=== PATIENT | female | born 1955 | race Caucasian/White ===

== ENCOUNTER 2017-02-06 18:01 | Inpatient (IN) | payer MEDICAID ==
[2017-02-06 18:44] LABS: BASOPHILS # (AUTO) 0.1 10^3/uL (0.0-0.1); BASOPHILS % (AUTO) 0.7 %; EOSINOPHILS # (AUTO) 0.1 10^3/uL (0.0-0.7); EOSINOPHILS % (AUTO) 1.2 %; HGB - HEMOGLOBIN 15.7 g/dL (12.0-16.0); LYMPHOCYTES # (AUTO) 2.6 10^3/uL (1.5-3.5); LYMPHOCYTES % (AUTO) 26.3 %; MEAN CORPUSCULAR HEMOGLOBIN 32.9 pg (27.0-31.0); MEAN CORPUSCULAR HGB CONC 34.3 g/dL (32.0-36.0); MEAN CORPUSCULAR VOLUME 95.7 fL (81.0-99.0); MEAN PLATELET VOLUME 7.2 fL (7.9-10.8); MONOCYTES # (AUTO) 1.2 10^3/uL (0.0-1.0); MONOCYTES % (AUTO) 11.8 %; NEUTROPHILS # (AUTO) 5.9 10^3/uL (1.5-6.6); PLT - PLATELET COUNT 276 10^3/uL (130-450); RED BLOOD COUNT 4.78 10^6/uL (4.20-5.40); RED CELL DISTRIBUTION WIDTH 13.2 % (12.0-15.0); WHITE BLOOD COUNT 9.9 x10^3/uL (4.8-10.8)
[2017-02-06] MEDS ORDERED: SODIUM CHLORIDE 0.9% 1,000 ML IV ONE ×2 (18:55)
[2017-02-06] MEDS ORDERED: PANTOPRAZOLE 40 MG VIAL IVP STA (18:55)
[2017-02-06 18:57] LABS: ALBUMIN 4.8 g/dL (3.2-5.5); ALBUMIN/GLOBULIN RATIO 1.2 (1.0-2.2); BILIRUBIN,TOTAL 0.8 mg/dL (0.2-1.0); CALCIUM 10.3 mg/dL (8.5-10.3); CREATININE 0.7 mg/dL (0.4-1.0); TOTAL PROTEIN 8.7 g/dL (6.7-8.2)
--- NOTE | 2017-02-06 18:59 | ED Physician Documentation ---
PD HPI ABD PAIN - Stated complaint Stated Complaint: ABD PAIN,BACK PAIN - Chief complaint Chief Complaint: Abd Pain - History obtained from History obtained from: Patient, Family - History of Present Illness Timing - onset: Today Timing - duration: Days (1) Timing - details: Gradual onset Pain level max: 8 Pain level now: 8 Quality: Aching, Pain Location: Epigastric Radiation: Other (mid back) Improved by: Eating, Vomiting Associated symptoms: Nausea. No: Fever, Vomiting, Hematemesis, Diarrhea, Constipation, Melena, Hematochezia, Dysuria Similar symptoms before: Diagnosis (pancreatitis) Recently seen: Not recently seen - Additional information Additional information: states drinks 1 bottle of white wine daily. Has had pancreatitis several times in the past. Review of Systems Ten Systems: 10 systems reviewed and negative Constitutional: denies: Fever, Chills Ears: denies: Ear pain Nose: denies: Rhinorrhea / runny nose, Congestion Throat: denies: Sore throat Respiratory: denies: Cough : denies: Dysuria Skin: denies: Rash Musculoskeletal: denies: Neck pain, Back pain Neurologic: denies: Headache PD PAST MEDICAL HISTORY - Past Medical History Past Medical History: Yes Cardiovascular: None Respiratory: Asthma, COPD Endocrine/Autoimmune: None GI: Pancreatitis : None HEENT: Glaucoma Psych: None Musculoskeletal: Gout Derm: None - Past Surgical History Past Surgical History: Yes Ortho: Arthroscopic surgery, Other HEENT: Tonsil/Adenoidectomy - Present Medications Home Medications: Ambulatory Orders Medication Instructions Recorded Confirmed Estrogens, Conjugated Cream 1 applic TOP QPM 10/14/15 10/14/15 [Premarin Cream] Citalopram [CeleXA] 20 mg PO DAILY #30 tablet 10/15/15 Lisinopril [Zestril] 5 mg PO DAILY #30 tablet 10/15/15 Lorazepam [Ativan] 1 mg PO Q6HR PRN #25 tablet 10/15/15 Metoprolol Tartrate [Lopressor] 50 mg PO BID #60 tablet 10/15/15 Multivitamin/Iron/Folic Acid [Hm 1 each PO DAILY #30 tablet 10/15/15 Complete Women Tablet] Ondansetron Odt [Zofran Odt] 4 mg PO Q6H PRN #15 tablet 10/15/15 Pantoprazole [Protonix] 40 mg PO DAILY #30 tablet 10/15/15 - Allergies Allergies/Adverse Reactions: Allergies Allergy/AdvReac Type Severity Reaction Status Date / Time morphine AdvReac Hallucinati Verified 02/06/17 19:28 ons - Social History Does the pt smoke?: No Smoking Status: Never smoker Does the pt drink ETOH?: Yes ETOH Use: Wine Does the pt have substance abuse?: No - Immunizations Immunizations are current?: Yes PD ED PE NORMAL - Vitals Vital signs reviewed: Yes - General General: Alert and oriented X 3, No acute distress, Well developed/nourished - HEENT HEENT: Moist mucous membranes, Pharynx benign - Neck Neck: Supple, no meningeal sign - Cardiac Cardiac: RRR, Strong equal pulses - Respiratory Respiratory: No respiratory distress, Clear bilaterally - Abdomen Abdomen: Soft, Non distended, Other (Tender to palpation epigastric without peritoneal signs) - Derm Derm: Warm and dry - Extremities Extremities: No edema - Neuro Neuro: Alert and oriented X 3 - Psych Psych: Normal mood, Normal affect Results - Vitals Vitals: Vital Signs - 24 hr 02/06/17 18:04 Temperature 36.6 C Heart Rate 106 H Respiratory 18 Rate Blood Pressure 207/101 H O2 Saturation 98 Oxygen O2 Source Room air - Labs Labs: Laboratory Tests 02/06/17 02/06/17 02/06/17 18:37 18:37 18:37 WBC 9.9 RBC 4.78 Hgb 15.7 Hct 45.7 MCV 95.7 MCH 32.9 H MCHC 34.3 RDW 13.2 Plt Count 276 MPV 7.2 L Neut # 5.9 Lymph # 2.6 [place] # 1.2 H Eos # 0.1 Baso # 0.1 Absolute Nucleated RBC 0.00 Nucleated RBC % 0.0 Sodium 134 L Potassium 3.8 Chloride 96 L Carbon Dioxide 24 Anion Gap 14.0 H BUN 12 Creatinine 0.7 Estimated GFR (MDRD) 85 L Glucose 109 H Calcium 10.3 Total Bilirubin 0.8 AST 63 H ALT 44 Alkaline Phosphatase 123 H Total Protein 8.7 H Albumin 4.8 Globulin 3.9 Albumin/Globulin Ratio 1.2 Lipase 102 H Ethyl Alcohol < 5.0 PD MEDICAL DECISION MAKING - ED course Complexity details: reviewed old records, reviewed results, re-evaluated patient , considered differential, d/w patient, d/w family, d/w [employer] operations consultant ED course: Patient is an alcoholic 61-year-old female presents to the emergency department with recurrent pancreatitis. Pain well controlled. Kept n.p.o. and given IV fluids. Discussed the case with the hospitalist Dr. Wade who accepts. This document was made in part using voice recognition software. While efforts are made to proofread this document, sound alike and grammatical errors may occur. Departure - Departure Disposition: [facility] DC/Xfer Clinical Impression: Pancreatitis Qualifiers: Chronicity: acute Pancreatitis type: alcohol induced Acute pancreatitis complication: no infection or necrosis Qualified Code(s): K85.20 - Alcohol induced acute pancreatitis without necrosis or infection Condition: Stable Discharge Date/Time: 02/06/17 20:29
[2017-02-06] MEDS ORDERED: MORPHINE 2 MG/ML SYRINGE IVP STA (19:13)
[2017-02-06] MEDS ORDERED: ONDANSETRON 4 MG/2 ML VIAL IVP STA (19:13)
[2017-02-06] MEDS ORDERED: HYDROmorphone 1 MG/ML SYRINGE IVP STA (19:26)
[2017-02-06] MEDS ORDERED: MORPHINE 2 MG/ML SYRINGE IVP PRN (19:43)
[2017-02-06] MEDS ORDERED: TEMAZEPAM 15 MG CAPSULE PO PRN (19:43)
[2017-02-06] MEDS ORDERED: SODIUM CHLORIDE FLUSH 0.9% 10 ML SYRINGE IVP PRN (19:43)
[2017-02-06 20:10] LABS: BILIRUBIN,URINE NEGATIVE (NEGATIVE); GLUCOSE, URINE (UA) NEGATIVE (NEGATIVE); KETONES,URINE (UA) TRACE mg/dL (NEGATIVE); LEUKOCYTE ESTERASE, URINE TRACE (NEGATIVE); NITRITE,URINE NEGATIVE (NEGATIVE); OCCULT BLOOD,URINE NEGATIVE (NEGATIVE); PH,URINE 6.5 PH (5.0-7.5); PROTEIN,URINE NEGATIVE (NEGATIVE); UROBILINOGEN,URINE 0.2 (NORMAL) E.U./dL (NORMAL)
[2017-02-06 20:12] LABS: CLARITY,URINE CLEAR (CLEAR)
[2017-02-06 20:18] LABS: BACTERIA,URINE Few /HPF (None Seen); RBC,URINE 0-5 /HPF (0-5); SQUAMOUS EPITHELIAL CELL,UR FEW Squamous (<= Few)
--- NOTE | 2017-02-06 20:30 | HISTORY & PHYSICAL EXAMINATION ---
Chief Complaint - Chief Complaint Chief Complaint: Abdominal pain History of Present Illness - Admitted From Admitted From:: Home - History of Present Illness HPI Comment/Other: Ms. Luigi Dahl is a very pleasant 61-year-old female with a long history of alcohol use/abuse and 2 prior episodes of pancreatitis secondary to alcohol abuse.She knows that she is not supposed to drink but has been drinking daily for over 2 weeks. She knows that she is not supposed to drink but has been drinking wine daily for over 2 weeks.This morning she awoke with abdominal pain which has continued to worsen.She denies any nausea or vomiting. History - Past Medical History Cardiovascular: reports: None Respiratory: reports: Asthma, COPD Endocrine/Autoimmune: reports: None GI: reports: Pancreatitis LEGAL TRANSCRIPTIONIST: reports: None : reports: None HEENT: reports: Glaucoma Psych: reports: None Musculoskeletal: reports: Gout Derm: reports: None MRSA Hx?: No - Past Surgical History Ortho: reports: Arthroscopic surgery, Other HEENT: reports: Tonsil/Adenoidectomy - Family & Social History Family History: Mother: , Cancer, Father: , CAD, Other family: Diabetes, Type 2, Hyperlipidemia, Hypertension Living arrangement: At home Living Situation: With spouse/s.o. - Substance History Use Issues: Other (Pancreatitis) Abuse: Recurrent use of substance despite neg consequences: Alcohol Dependence: Experiences withdrawal or developed tolerances: Alcohol - POLST Patient has POLST: No Meds/Allgy - Home Medications Home Medications: Ambulatory Orders Medication Instructions Recorded Confirmed Estrogens, Conjugated Cream 1 applic TOP QPM 10/14/15 10/14/15 [Premarin Cream] Citalopram [CeleXA] 20 mg PO DAILY #30 tablet 10/15/15 Lisinopril [Zestril] 5 mg PO DAILY #30 tablet 10/15/15 Lorazepam [Ativan] 1 mg PO Q6HR PRN #25 tablet 10/15/15 Metoprolol Tartrate [Lopressor] 50 mg PO BID #60 tablet 10/15/15 Multivitamin/Iron/Folic Acid [Hm 1 each PO DAILY #30 tablet 10/15/15 Complete Women Tablet] Ondansetron Odt [Zofran Odt] 4 mg PO Q6H PRN #15 tablet 10/15/15 Pantoprazole [Protonix] 40 mg PO DAILY #30 tablet 10/15/15 - Allergies Allergies/Adverse Reactions: Allergies Allergy/AdvReac Type Severity Reaction Status Date / Time morphine AdvReac Hallucinati Verified 02/06/17 19:28 ons Review of Systems - Constitutional Constitutional: reports: Poor appetite, Diaphoresis, Weight loss. denies: Night sweats - Eyes Eyes: denies: Pain, Irritation, Blurred vision, Dipolpia - Ears, Nose & Throat Ears, Nose & Throat: denies: Ear pain, Hearing loss, Hearing aids, Tinnitus, Vertigo, Nosebleeds, Nasal obstruction, Nasal congestion, Dentures, Mouth lesions, Bleeding gums, Dental pain - Cardiovascular Cariovascular: denies: Palpitations, Chest pain, Edema, Syncope - Respiratory Respiratory: denies: Cough, Sputum production, Wheezing, Snoring - Gastrointestinal Gastrointestinal: reports: Abdominal pain, Diarrhea. denies: Abdominal distention, Constipation, Rectal bleeding, Rene blood emesis - Genitourinary Genitourinary: denies: Dysuria, Frequency, Urgency - Musculoskeletal Musculoskeletal: denies: Muscle pain, Back pain, Muscle aches, Joint pain - Integumentary Integumentary: denies: Rash, Pruritis, Lesions - Neurological Neurological: denies: General weakness, Focal weakness, Headache, Dizziness - Psychiatric Psychiatric: reports: Depression, Anxiety. denies: Suicidal, Delusions, Hallucinations - Endocrine Endocrine: denies: Polyuria, Polydypsia, Polyphagia - Hematologic/Lymphatic Hematologic/Lymphatic: denies: Anemia, Bruising, Petechiae, Lymphadenopathy - All Other Systems All Other Systems: reports: Reviewed and negative Exam - Vital Signs Reviewed Vital Signs: Yes Vital Signs: Vital Signs x48h Temp Pulse Resp BP Pulse Ox 02/06/17 20:25 36.5 C 107 H 20 143/78 H 97 - Physical Exam General Appearance: positive: Alert, Mild distress, Anxious Eyes Bilateral: positive: Normal inspection, PERRL, EOMI, No lid inflammation, No scleral icterus ENT: positive: ENT inspection nml, Pharynx nml, No signs of dehydration. negative: Purulent nasal drainage, Pharyngeal erythema, Oral lesions Neck: positive: Nml inspection, Thyroid nml, No JVD, Trachea midline. negative : Thyromegaly Respiratory: positive: Chest non-tender, No respiratory distress, Breath sounds nml. negative: Wheezes, Rales, Rhonchi Cardiovascular: positive: Regular rate & rhythm, No murmur, No gallop. negative : Systolic murmur, Diastolic murmur Peripheral Pulses: positive: 1+ Abdomen: positive: No organomegaly, Nml bowel sounds, No distention, Tenderness. negative: Guarding, Rebound Back: positive: Nml inspection. negative: CVA tenderness (R), CVA tenderness (L ) Skin: positive: Color nml, No rash, Warm, Dry. negative: Cyanosis Extremities: positive: Non-tender, Full ROM, Nml appearance, No pedal edema Neurologic/Psychiatric: positive: Oriented x3, CN's nml (2-12), Motor nml, Sensation nml, Mood/affect nml Conclusion/Plan - Problem List (1) Pancreatitis Conclusion/Plan: We will make the patient n.p.o. at this time and will check her electrolytes in the morning. We will start her on IV D5 one half normal saline with 20 mEq of potassium and correct any electrolyte abnormalities as they arise. We will give her pain medicine as needed. Once her pain is under control we will start her on a soft diet. Qualifiers: Chronicity: acute Pancreatitis type: alcohol induced Acute pancreatitis complication: no infection or necrosis Qualified Code(s): K85.20 - Alcohol induced acute pancreatitis without necrosis or infection (2) Alcohol abuse Conclusion/Plan: We will ask social media content specialist to consult with the patient regarding alcohol cessation and any programs that may be available for her. - Lab Results Fish Bones: 02/06/17 18:37 02/06/17 18:37 Issues/Core Measures - Anticipated LOS Anticipated Stay Length: 2 or more midnights - [facility] Requirement for [facility] I expect patient to be DC'd or transferred within 96 hours.: Yes - DVT/VTE - Prophylaxis VTE/DVT Device ordered at admit?: Yes
[2017-02-06] MEDS ORDERED: HYDROmorphone 1 MG/ML SYRINGE IVP SCH (20:48)
[2017-02-06] MEDS: SODIUM CHLORIDE FLUSH 0.9% 10 ML SYRINGE IVP SCH (21:09)
[2017-02-06] MEDS: METOPROLOL TARTRATE 50 MG TABLET PO SCH (21:10)
[2017-02-06] MEDS: LORazepam 0.5 MG TABLET PO PRN (21:11)
[2017-02-06] MEDS: PROCHLORPERAZINE 10 MG/2 ML VIAL IVP PRN (21:12)
[2017-02-06] MEDS: FAMOTIDINE 20 MG/50 ML 50 ML IV SCH (21:17)
[2017-02-06] MEDS: D5.45NS W/20 MEQ KCL 1,000 ML IV SCH (21:52)
[2017-02-07] MEDS ORDERED: HYDROmorphone 1 MG/ML SYRINGE IVP STA (02:53)
[2017-02-07] MEDS: SODIUM CHLORIDE FLUSH 0.9% 10 ML SYRINGE IVP SCH ×3 (06:37→21:23)
[2017-02-07] MEDS: D5.45NS W/20 MEQ KCL 1,000 ML IV SCH ×2 (08:05→18:51)
[2017-02-07] MEDS: ACETAMINOPHEN 1,000 MG/100 ML 100 ML IV PRN (08:16)
[2017-02-07] MEDS: POLYETHYLENE GLYCOL 3350 17 GM PACKET PO SCH (08:45)
[2017-02-07] MEDS: METOPROLOL TARTRATE 50 MG TABLET PO SCH (08:46)
[2017-02-07] MEDS: FAMOTIDINE 20 MG/50 ML 50 ML IV SCH ×2 (08:52→21:22)
[2017-02-07] MEDS ORDERED: CITALOPRAM 10 MG TABLET PO SCH (09:00)
[2017-02-07] MEDS ORDERED: LISINOPRIL 5 MG TABLET PO SCH (09:00)
[2017-02-07] MEDS: HYDROmorphone 1 MG/ML SYRINGE IVP PRN ×2 (10:46→18:51)
[2017-02-07] MEDS: LORazepam 0.5 MG TABLET PO PRN (10:49)
[2017-02-07 11:07] LABS: ALBUMIN 3.6 g/dL (3.2-5.5); BILIRUBIN,DIRECT 0.1 mg/dL (0.1-0.5); BILIRUBIN,TOTAL 0.9 mg/dL (0.2-1.0); MAGNESIUM 1.8 mg/dL (1.7-2.8); TOTAL PROTEIN 6.5 g/dL (6.7-8.2)
[2017-02-07] MEDS ORDERED: IOPAMIDOL-300 50 ML VIAL ONE (11:24)
[2017-02-07] MEDS ORDERED: IOPAMIDOL-300 100 ML VIAL ONE (11:24)
[2017-02-07] MEDS: PROCHLORPERAZINE 10 MG/2 ML VIAL IVP PRN ×2 (11:30→22:49)
[2017-02-07] MEDS ORDERED: IOPAMIDOL-300 50 ML VIAL PO ONE (13:58)
[2017-02-07] MEDS ORDERED: IOPAMIDOL-300 100 ML VIAL IVP ONE (13:58)
--- NOTE | 2017-02-07 15:41 | PROVIDER PROGRESS NOTE ---
Assessment/Plan - Problem List (1) Pancreatitis Qualifiers: Chronicity: acute Pancreatitis type: alcohol induced Acute pancreatitis complication: no infection or necrosis Qualified Code(s): K85.20 - Alcohol induced acute pancreatitis without necrosis or infection Assessment/Plan: Continue bowel rest, iv hydration and pain management. iv meds for gastric ulcer prophylaxis. Abdomen/pelvis CT ordered to evaluate pancreas and abdomen. Following amylase and lipase, electrolytes and anion gap. (2) Alcohol abuse Assessment/Plan: Lorazepam ordered prn signs of withdrawl. - Current Meds Current Meds: Current Medications Generic Name Dose Route Start Last Admin Trade Name Freq PRN Reason Stop Dose Admin Hydromorphone HCl 1 mg 02/07/17 10:30 02/07/17 10:46 Dilaudid Inj Syringe IVP 1 mg Q4H PRN Administration PAIN Potassium Chloride/Dextrose/Sod Cl 1,000 mls @ 100 mls/hr 02/06/17 20:00 08:05 D5.45ns W/20 Meq Kcl IV 100 mls/hr .Q10H SANJU Administration Famotidine 50 mls @ 100 mls/hr 02/06/17 21:00 02/07/17 10:09 Pepcid 20 Mg/50 Ml IV Infused BID SANJU Infusion Acetaminophen 100 mls @ 400 mls/hr 02/07/17 08:17 02/07/17 10:16 Ofirmev IV Infused Q6HR PRN Infusion PAIN Lorazepam 0.5 - 1 mg 02/06/17 19:52 02/07/17 10:49 Ativan PO 1 mg Q6H PRN Administration Alcohol Withdrawal Polyethylene Glycol 17 gm 02/07/17 09:00 02/07/17 08:45 Miralax PO Not Given DAILY SANJU Prochlorperazine Edisylate 10 mg 02/06/17 19:43 02/07/17 11:30 Compazine Inj IVP 10 mg Q6HR PRN Administration Nausea / Vomiting Sodium Chloride 10 ml 02/06/17 19:43 02/07/17 03:38 Normal Saline Flush 0.9% IVP 10 ml PRN PRN Administration NEEDED PER PROVIDER ORDERS Sodium Chloride 10 ml 02/06/17 22:00 02/07/17 13:38 Normal Saline Flush 0.9% IVP Not Given Q8HR SANJU - Lab Result Fish Bone Diagrams: 02/06/17 18:37 02/07/17 10:37 - Additional Planning My Orders: My Active Orders 02/07/17 08:17 Acetaminophen 1,000 mg/100 ml [Ofirmev] 100 ml IV Q6HR 02/07/17 10:30 HYDROmorphone INJ SYRINGE [Dilaudid Inj Syringe] 1 mg IVP Q4H PRN 02/07/17 13:25 Abdomen/Pelvis W/ [CT] Routine 02/08/17 05:00 AMYLASE [CHEM] DAILYLAB BMP - BASIC METABOLIC PANEL [CHEM] DAILYLAB CBC - COMP BLD CT W/AUTO DIFF [HEME] DAILYLAB LIPASE [CHEM] DAILYLAB LIVER PANEL [CHEM] DAILYLAB MAGNESIUM [CHEM] DAILYLAB Subjective - Subjective Patient Reports: Other (Nauseated Still havuing abdominal pain and needing pain meds) Objective Vital Signs: Vital Signs - 24 hr 02/06/17 02/06/17 02/06/17 20:25 20:36 21:10 Temperature 36.5 C 36.6 C Heart Rate 107 H Heart Rate [ 102 H Brachial] Respiratory 20 16 Rate Blood Pressure 143/78 H 187/86 H Blood Pressure 183/82 H [Right Brachial artery] O2 Saturation 97 97 02/07/17 02/07/17 02/07/17 00:21 07:32 08:46 Temperature 36.9 C 36.5 C Heart Rate Heart Rate [ 76 74 Brachial] Respiratory 16 16 Rate Blood Pressure 127/76 Blood Pressure 156/89 H 127/76 [Right Brachial artery] O2 Saturation 96 96 Oxygen O2 Source Room air I&O (Last 24 Hrs): Intake and Output Totals x24h 02/05/17 02/06/17 02/07/17 23:59 23:59 23:59 Intake Total 1487.5 1160 Balance 1487.5 1160 General: Moderate distress HEENT: Other (Dry mucosa) Neck: Supple Cardiovascular: Regular rate, No murmurs Respiratory: No respiratory distress Abdomen: Normal bowel sounds, Soft, Other (Guarding without rebound) Extremities: No edema - Results Results: Laboratory Results WBC 9.9 x10^3/uL (4.8-10.8) 02/06/17 18:37 RBC 4.78 10^6/uL (4.20-5.40) 02/06/17 18:37 Hgb 15.7 g/dL (12.0-16.0) 02/06/17 18:37 Hct 45.7 % (37.0-47.0) 02/06/17 18:37 MCV 95.7 fL (81.0-99.0) 02/06/17 18:37 MCH 32.9 pg (27.0-31.0) H 02/06/17 18:37 MCHC 34.3 g/dL (32.0-36.0) 02/06/17 18:37 RDW 13.2 % (12.0-15.0) 02/06/17 18:37 Plt Count 276 10^3/uL (130-450) 02/06/17 18:37 MPV 7.2 fL (7.9-10.8) L 02/06/17 18:37 Neut # 5.9 10^3/uL (1.5-6.6) 02/06/17 18:37 Lymph # 2.6 10^3/uL (1.5-3.5) 02/06/17 18:37 [place] # 1.2 10^3/uL (0.0-1.0) H 02/06/17 18:37 Eos # 0.1 10^3/uL (0.0-0.7) 02/06/17 18:37 Baso # 0.1 10^3/uL (0.0-0.1) 02/06/17 18:37 Absolute Nucleated RBC 0.00 x10^3/uL 02/06/17 18:37 Nucleated RBC % 0.0 /100WBC 02/06/17 18:37 Sodium 134 mmol/L (135-145) L 02/06/17 18:37 Potassium 3.8 mmol/L (3.5-5.0) 02/07/17 10:37 Chloride 96 mmol/L (101-111) L 02/06/17 18:37 Carbon Dioxide 24 mmol/L (21-32) 02/06/17 18:37 Anion Gap 14.0 (6-13) H 02/06/17 18:37 BUN 12 mg/dL (6-20) 02/06/17 18:37 Creatinine 0.7 mg/dL (0.4-1.0) 02/06/17 18:37 Estimated GFR (MDRD) 85 (>89) L 02/06/17 18:37 Glucose 109 mg/dL (70-100) H 02/06/17 18:37 Calcium 10.3 mg/dL (8.5-10.3) 02/06/17 18:37 Magnesium 1.8 mg/dL (1.7-2.8) 02/07/17 10:37 Total Bilirubin 0.9 mg/dL (0.2-1.0) 02/07/17 10:37 Direct Bilirubin 0.1 mg/dL (0.1-0.5) 02/07/17 10:37 AST 40 IU/L (10-42) 02/07/17 10:37 ALT 33 IU/L (10-60) 02/07/17 10:37 Alkaline Phosphatase 102 IU/L (42-121) 02/07/17 10:37 Total Protein 6.5 g/dL (6.7-8.2) L 02/07/17 10:37 Albumin 3.6 g/dL (3.2-5.5) 02/07/17 10:37 Globulin 2.9 g/dL (2.1-4.2) 02/07/17 10:37 Albumin/Globulin Ratio 1.2 (1.0-2.2) 02/06/17 18:37 Amylase 74 U/L (28-100) 02/07/17 10:37 Lipase 210 U/L (22-51) H 02/07/17 10:37 Urine Color YELLOW 02/06/17 19:50 Urine Clarity CLEAR (CLEAR) 02/06/17 19:50 Urine pH 6.5 PH (5.0-7.5) 02/06/17 19:50 Ur Specific [place] 1.020 (1.002-1.030) 02/06/17 19:50 Urine Protein NEGATIVE mg/dL (NEGATIVE) 02/06/17 19:50 Urine Glucose (UA) NEGATIVE mg/dL (NEGATIVE) 02/06/17 19:50 Urine Ketones TRACE mg/dL (NEGATIVE) 02/06/17 19:50 Urine Occult Blood NEGATIVE (NEGATIVE) 02/06/17 19:50 Urine Nitrite NEGATIVE (NEGATIVE) 02/06/17 19:50 Urine Bilirubin NEGATIVE (NEGATIVE) 02/06/17 19:50 Urine Urobilinogen 0.2 (NORMAL) E.U./dL (NORMAL) 02/06/17 19:50 Ur Leukocyte Esterase TRACE (NEGATIVE) H 02/06/17 19:50 Urine RBC 0-5 /HPF (0-5) 02/06/17 19:50 Urine WBC 6-10 /HPF (0-5) H 02/06/17 19:50 Ur Squamous Epith Cells FEW Squamous (<= Few) 02/06/17 19:50 Urine Bacteria Few /HPF (None Seen) 02/06/17 19:50 Ur Microscopic Review INDICATED 02/06/17 19:50 Urine Culture Comments INDICATED 02/06/17 19:50 Ethyl Alcohol < 5.0 mg/dL 02/06/17 18:37 - Procedures Procedures: Procedures INTRODUCE REGIONAL ANESTH IN PERIPH NRV, PLEXI, PERC (01/19/15) REPOSITION RIGHT ULNA WITH INT FIX, OPEN APPROACH (01/19/15) VENOUS CATHETERIZATION NEC (10/21/14)
--- NOTE | 2017-02-08 00:09 | PROVIDER PROGRESS NOTE ---
Manager Heart Note - Manager Heart Note Manager Heart Note: February 08, 2017 12:07 AM Subjective P.m. nurse starting at 11 PM noticed that patient's blood pressures been elevated since her stay yesterday. She is not any particular abdominal pain. She seems a little agitated at times but easily calmed down by voice problems. I reviewed her medical records and centricity and the patient is noted to have hypertension in relation to alcohol withdrawal. She has been in inpatient rehab at least 4 times. At one point she was placed on metoprolol in 2011. Between 2011 and now her blood pressure has been elevated as far as 180 systolic and 100 diastolic. However she has had multiple encounters with health system with regards to depression, suicidal ideation, orthopedic visits, assist on her finger, but no true single visit that was devoted only to her hypertension. She denies chest pain palpitations shortness of breath edema. Active Medications Hydromorphone HCl (Dilaudid Inj Syringe) 1 mg IVP Q4H PRN PRN Reason: PAIN Last Admin: 02/07/17 18:51 Dose: 1 mg Famotidine (Pepcid 20 Mg/50 Ml) 50 mls @ 100 mls/hr IV BID SANJU Last Infusion: 02/07/17 23:17 Dose: Infused Acetaminophen (Ofirmev) 100 mls @ 400 mls/hr IV Q6HR PRN PRN Reason: PAIN Last Infusion: 02/07/17 10:16 Dose: Infused Potassium Chloride/Dextrose/Sod Cl (D5.45ns W/20 Meq Kcl) 1,000 mls @ 125 mls/ hr IV .Q8H SANJU Last Infusion: 02/07/17 23:17 Dose: 125 mls/hr Lorazepam (Ativan) 0.5 - 1 mg PO Q6H PRN PRN Reason: Alcohol Withdrawal Last Admin: 02/07/17 10:49 Dose: 1 mg Polyethylene Glycol (Miralax) 17 gm PO DAILY SANJU Last Admin: 02/07/17 08:45 Dose: Not Given Prochlorperazine Edisylate (Compazine Inj) 10 mg IVP Q6HR PRN PRN Reason: Nausea / Vomiting Last Admin: 02/07/17 22:49 Dose: 10 mg Sodium Chloride (Normal Saline Flush 0.9%) 10 ml IVP PRN PRN PRN Reason: NEEDED PER PROVIDER ORDERS Last Admin: 02/07/17 03:38 Dose: 10 ml Sodium Chloride (Normal Saline Flush 0.9%) 10 ml IVP Q8HR SANJU Last Admin: 02/07/17 21:23 Dose: 10 ml Temazepam (Restoril) 15 mg PO QPM PRN PRN Reason: Insomnia Last Admin: 02/07/17 21:28 Dose: 15 mg Estrogens, Conjugated Cream [Premarin Cream] 1 applic VG .THREETIMESWEEKLY 10/13 Albuterol Sulfate [Proair Respiclick] 1 - 2 puffs INH Q4H PRN 02/07/17 Latanoprost [Xalatan] 1 drops EACHEYE QPM 02/07/17 Timolol 0.25% Ophth Drops [Timoptic 0.25% Ophth Drops] 1 drops EACHEYE BID 02/07 Objective Vital Signs - 24 hr 02/07/17 02/07/17 02/07/17 00:21 07:32 08:46 Temperature 36.9 C 36.5 C Heart Rate [ 76 74 Brachial] Respiratory 16 16 Rate Blood Pressure 127/76 Blood Pressure [Left Brachial artery] Blood Pressure 156/89 H 127/76 [Right Brachial artery] O2 Saturation 96 96 02/07/17 02/07/17 15:38 23:50 Temperature 37.2 C 37.1 C Heart Rate [ 60 69 Brachial] Respiratory 14 16 Rate Blood Pressure Blood Pressure 167/77 H [Left Brachial artery] Blood Pressure 184/75 H [Right Brachial artery] O2 Saturation 99 96 Oxygen O2 Source Room air Regular rate and rhythm, no S4, no JVD Assessment/plan She most likely has a combination of essential hypertension plus a history of alcohol withdrawal. We will start her on a beta-pankaj since metoprolol was the drug of choice in 2011. We will have her continue this in the outpatient setting and follow-up with her primary care provider.
[2017-02-08] MEDS: METOPROLOL SUCCINATE 50 MG TABLET PO SCH ×2 (01:41→08:01)
[2017-02-08] MEDS: LORazepam 0.5 MG TABLET PO PRN ×2 (01:41→08:00)
[2017-02-08] MEDS: HYDROmorphone 1 MG/ML SYRINGE IVP PRN ×5 (01:41→21:23)
[2017-02-08] MEDS: ACETAMINOPHEN 1,000 MG/100 ML 100 ML IV PRN ×4 (01:42→22:21)
[2017-02-08 05:30] LABS: BASOPHILS % (AUTO) 0.3 %; EOSINOPHILS % (AUTO) 0.5 %; HGB - HEMOGLOBIN 14.6 g/dL (12.0-16.0); LYMPHOCYTES # (AUTO) 0.9 10^3/uL (1.5-3.5); LYMPHOCYTES % (AUTO) 11.4 %; MEAN CORPUSCULAR HEMOGLOBIN 33.2 pg (27.0-31.0); MEAN CORPUSCULAR VOLUME 97.7 fL (81.0-99.0); MONOCYTES # (AUTO) 0.9 10^3/uL (0.0-1.0); MONOCYTES % (AUTO) 10.6 %; NEUTROPHILS # (AUTO) 6.2 10^3/uL (1.5-6.6); NEUTROPHILS % (AUTO) 77.2 %; PLT - PLATELET COUNT 218 10^3/uL (130-450); RED BLOOD COUNT 4.41 10^6/uL (4.20-5.40); RED CELL DISTRIBUTION WIDTH 13.6 % (12.0-15.0); WHITE BLOOD COUNT 8.1 x10^3/uL (4.8-10.8)
[2017-02-08] MEDS: SODIUM CHLORIDE FLUSH 0.9% 10 ML SYRINGE IVP SCH ×3 (05:32→21:23)
[2017-02-08] MEDS: D5.45NS W/20 MEQ KCL 1,000 ML IV SCH ×3 (05:32→21:22)
[2017-02-08 06:13] LABS: ALBUMIN 3.3 g/dL (3.2-5.5); ALKALINE PHOSPHATASE 98 IU/L (42-121); ALT ALANINE AMINOTRANSFERASE 28 IU/L (10-60); AMYLASE 207 U/L (28-100); AST ASPARTATE AMINOTRANSFERASE 33 IU/L (10-42); BILIRUBIN,DIRECT 0.1 mg/dL (0.1-0.5); BILIRUBIN,TOTAL 0.6 mg/dL (0.2-1.0); BUN - BLOOD UREA NITROGEN < 5 mg/dL (6-20); CARBON DIOXIDE - CO2 26 mmol/L (21-32); CHLORIDE 100 mmol/L (101-111); CREATININE 0.5 mg/dL (0.4-1.0); GFR - MDRD 125 (>89); GLUCOSE 147 mg/dL (70-100); LIPASE 682 U/L (22-51); SODIUM 133 mmol/L (135-145); TOTAL PROTEIN 6.5 g/dL (6.7-8.2)
[2017-02-08] MEDS: FAMOTIDINE 20 MG/50 ML 50 ML IV SCH ×2 (08:00→21:23)
[2017-02-08] MEDS: POLYETHYLENE GLYCOL 3350 17 GM PACKET PO SCH (08:45)
--- NOTE | 2017-02-08 16:31 | CT Report ---
DATE OF SERVICE: CT ABDOMEN AND PELVIS WITH CONTRAST: 02/07/2017 CLINICAL INDICATION: Pain, elevated lipase, pancreatitis. COMPARISON: 10/27/2014 TECHNIQUE: Axial CT images of the abdomen and pelvis were obtained with 100 mL Isovue 300 intravenou sly as well as oral contrast. In accordance with CT protocol optimization, one or more of the following dose reduction techniques w ere utilized for this exam: Automated exposure control, adjustment of mA and/or KV based on patient size , or use of iterative reconstructive technique. FINDINGS Limited evaluation of the lung bases demonstrates mild atelectasis. ABDOMEN: The liver, spleen, kidneys, and adrenal glands are unremarkable. There is inflammation royce tered on the pancreas, but no evidence of pancreatic necrosis or pseudocyst formation. Trace fluid is noted i n the pericolic gutters. The gallbladder is not distended. No bowel dilatation, free gas, or abdominal ad enopathy is appreciated. PELVIS: Diverticulosis is present, without CT evidence of diverticulitis. The appendix is seen in t he right lower quadrant, and is normal in caliber. A fundal fibroid is noted in the uterus. No pelvic adenop athy is seen. Trace free fluid is present. Osseous structures demonstrate degenerative changes. IMPRESSION: Inflammation centered on the pancreas, compatible with pancreatitis, without evidence of pancreatic necrosis or pseudocyst formation. TD: 02/07/2017 18:59
--- NOTE | 2017-02-08 18:43 | PROVIDER PROGRESS NOTE ---
Assessment/Plan - Problem List (1) Pancreatitis Qualifiers: Chronicity: acute Pancreatitis type: alcohol induced Acute pancreatitis complication: no infection or necrosis Qualified Code(s): K85.20 - Alcohol induced acute pancreatitis without necrosis or infection Assessment/Plan: Imaging confirmed mild pancreatitis without necrosis or pseudocyst Lipase continues to rise but pain is better Will try to advance diet to clear liquids but continue iv hydration as she is clinically still dehydrated (2) Alcohol abuse Assessment/Plan: I had a long discussion with Pt regarding her alcohol use. She is very remorseful. (3) HTN (hypertension) Assessment/Plan: Pt describes being on Metoprolol and Lisinopril when she had her 2 past pancreatitis admissions As an outpt, she has only had borderline HTN on no meds. Will resume BP meds currently (4) Abdominal bloating Assessment/Plan: with constipation is likely due to narcotics being used for pain control. The exam is not consistent with a surgical abdomen Will order a KUB to check for bowel obstruction, stool pattern - Current Meds Current Meds: Current Medications Generic Name Dose Route Start Last Admin Trade Name Freq PRN Reason Stop Dose Admin Hydromorphone HCl 1 mg 02/07/17 10:30 02/08/17 16:38 Dilaudid Inj Syringe IVP 1 mg Q4H PRN Administration PAIN Famotidine 50 mls @ 100 mls/hr 02/06/17 21:00 02/08/17 08:49 Pepcid 20 Mg/50 Ml IV Infused BID SANJU Infusion Acetaminophen 100 mls @ 400 mls/hr 02/07/17 08:17 02/08/17 16:38 Ofirmev IV 400 mls/hr Q6HR PRN Administration PAIN Potassium Chloride/Dextrose/Sod Cl 1,000 mls @ 125 mls/hr 02/07/17 15:50 13:48 D5.45ns W/20 Meq Kcl IV 125 mls/hr .Q8H ASNJU Administration Lorazepam 0.5 - 1 mg 02/06/17 19:52 02/08/17 08:00 Ativan PO 1 mg Q6H PRN Administration Alcohol Withdrawal Metoprolol Succinate 50 mg 02/08/17 01:00 02/08/17 08:01 Toprol Xl PO 50 mg DAILY SANJU Administration Polyethylene Glycol 17 gm 02/07/17 09:00 02/08/17 08:45 Miralax PO Not Given DAILY SANJU Prochlorperazine Edisylate 10 mg 02/06/17 19:43 02/07/17 22:49 Compazine Inj IVP 10 mg Q6HR PRN Administration Nausea / Vomiting Sodium Chloride 10 ml 02/06/17 19:43 02/07/17 03:38 Normal Saline Flush 0.9% IVP 10 ml PRN PRN Administration NEEDED PER PROVIDER ORDERS Sodium Chloride 10 ml 02/06/17 22:00 02/08/17 13:17 Normal Saline Flush 0.9% IVP Not Given Q8HR SANJU Temazepam 15 mg 02/06/17 19:43 02/07/17 21:28 Restoril PO 15 mg QPM PRN Administration Insomnia - Lab Result Fish Bone Diagrams: 02/08/17 04:50 02/08/17 04:50 Subjective - Subjective Patient Reports: Other (Less abd pain and nausea but new distended abdomen. Passing gas but no BM for 3 days.) Objective Vital Signs: Vital Signs - 24 hr 02/07/17 02/08/17 02/08/17 23:50 08:05 15:56 Temperature 37.1 C 37.0 C 36.6 C Heart Rate [ 69 83 69 Brachial] Respiratory 16 18 18 Rate Blood Pressure 184/75 H 177/84 H 170/77 H [Right Brachial artery] O2 Saturation 96 94 99 02/08/17 17:47 Temperature Heart Rate [ 74 Brachial] Respiratory Rate Blood Pressure 168/87 H [Right Brachial artery] O2 Saturation Oxygen O2 Source Room air I&O (Last 24 Hrs): Intake and Output Totals x24h 02/06/17 02/07/17 02/08/17 23:59 23:59 23:59 Intake Total 1487.5 2526.667 1933.333 Balance 1487.5 2526.667 1933.333 - Results Results: Laboratory Results WBC 8.1 x10^3/uL (4.8-10.8) 02/08/17 04:50 RBC 4.41 10^6/uL (4.20-5.40) 02/08/17 04:50 Hgb 14.6 g/dL (12.0-16.0) 02/08/17 04:50 Hct 43.1 % (37.0-47.0) 02/08/17 04:50 MCV 97.7 fL (81.0-99.0) 02/08/17 04:50 MCH 33.2 pg (27.0-31.0) H 02/08/17 04:50 MCHC 34.0 g/dL (32.0-36.0) 02/08/17 04:50 RDW 13.6 % (12.0-15.0) 02/08/17 04:50 Plt Count 218 10^3/uL (130-450) 02/08/17 04:50 MPV 7.0 fL (7.9-10.8) L 02/08/17 04:50 Neut # 6.2 10^3/uL (1.5-6.6) 02/08/17 04:50 Lymph # 0.9 10^3/uL (1.5-3.5) L 02/08/17 04:50 [place] # 0.9 10^3/uL (0.0-1.0) 02/08/17 04:50 Eos # 0.0 10^3/uL (0.0-0.7) 02/08/17 04:50 Baso # 0.0 10^3/uL (0.0-0.1) 02/08/17 04:50 Absolute Nucleated RBC 0.00 x10^3/uL 02/08/17 04:50 Nucleated RBC % 0.1 /100WBC 02/08/17 04:50 Sodium 133 mmol/L (135-145) L 02/08/17 04:50 Potassium 4.2 mmol/L (3.5-5.0) 02/08/17 04:50 Chloride 100 mmol/L (101-111) L 02/08/17 04:50 Carbon Dioxide 26 mmol/L (21-32) 02/08/17 04:50 Anion Gap 7.0 (6-13) 02/08/17 04:50 BUN < 5 mg/dL (6-20) L 02/08/17 04:50 Creatinine 0.5 mg/dL (0.4-1.0) 02/08/17 04:50 Estimated GFR (MDRD) 125 (>89) 02/08/17 04:50 Glucose 147 mg/dL (70-100) H 02/08/17 04:50 Calcium 9.0 mg/dL (8.5-10.3) 02/08/17 04:50 Magnesium 2.0 mg/dL (1.7-2.8) 02/08/17 04:50 Total Bilirubin 0.6 mg/dL (0.2-1.0) 02/08/17 04:50 Direct Bilirubin 0.1 mg/dL (0.1-0.5) 02/08/17 04:50 AST 33 IU/L (10-42) 02/08/17 04:50 ALT 28 IU/L (10-60) 02/08/17 04:50 Alkaline Phosphatase 98 IU/L (42-121) 02/08/17 04:50 Total Protein 6.5 g/dL (6.7-8.2) L 02/08/17 04:50 Albumin 3.3 g/dL (3.2-5.5) 02/08/17 04:50 Globulin 3.2 g/dL (2.1-4.2) 02/08/17 04:50 Albumin/Globulin Ratio 1.2 (1.0-2.2) 02/06/17 18:37 Amylase 207 U/L (28-100) H 02/08/17 04:50 Lipase 682 U/L (22-51) H 02/08/17 04:50 Urine Color YELLOW 02/06/17 19:50 Urine Clarity CLEAR (CLEAR) 02/06/17 19:50 Urine pH 6.5 PH (5.0-7.5) 02/06/17 19:50 Ur Specific [place] 1.020 (1.002-1.030) 02/06/17 19:50 Urine Protein NEGATIVE mg/dL (NEGATIVE) 02/06/17 19:50 Urine Glucose (UA) NEGATIVE mg/dL (NEGATIVE) 02/06/17 19:50 Urine Ketones TRACE mg/dL (NEGATIVE) 02/06/17 19:50 Urine Occult Blood NEGATIVE (NEGATIVE) 02/06/17 19:50 Urine Nitrite NEGATIVE (NEGATIVE) 02/06/17 19:50 Urine Bilirubin NEGATIVE (NEGATIVE) 02/06/17 19:50 Urine Urobilinogen 0.2 (NORMAL) E.U./dL (NORMAL) 02/06/17 19:50 Ur Leukocyte Esterase TRACE (NEGATIVE) H 02/06/17 19:50 Urine RBC 0-5 /HPF (0-5) 02/06/17 19:50 Urine WBC 6-10 /HPF (0-5) H 02/06/17 19:50 Ur Squamous Epith Cells FEW Squamous (<= Few) 02/06/17 19:50 Urine Bacteria Few /HPF (None Seen) 02/06/17 19:50 Ur Microscopic Review INDICATED 02/06/17 19:50 Urine Culture Comments INDICATED 02/06/17 19:50 Ethyl Alcohol < 5.0 mg/dL 02/06/17 18:37 - Procedures Procedures: Procedures INTRODUCE REGIONAL ANESTH IN PERIPH NRV, PLEXI, PERC (01/19/15) REPOSITION RIGHT ULNA WITH INT FIX, OPEN APPROACH (01/19/15) VENOUS CATHETERIZATION NEC (10/21/14)
--- NOTE | 2017-02-08 20:02 | XRAY Report ---
EXAM: ABDOMEN RADIOGRAPHY EXAM DATE: 02/08/2017 07:17 PM. CLINICAL HISTORY: Abd pain and distension. COMPARISON: 02/07/2017. TECHNIQUE: 1 view. FINDINGS: Bowel Gas Pattern: No dilated small bowel is seen. There is positive oral contrast within right colon . Other: None. IMPRESSION: 1. No evidence of small bowel obstruction. 2. There is positive oral contrast within right colon. LEIGH Referring Provider Line: [phone] SITE ID: [id number]
[2017-02-09] MEDS: HYDROmorphone 1 MG/ML SYRINGE IVP PRN ×3 (02:09→12:11)
[2017-02-09] MEDS: ACETAMINOPHEN 1,000 MG/100 ML 100 ML IV PRN (05:19)
[2017-02-09] MEDS: D5.45NS W/20 MEQ KCL 1,000 ML IV SCH (05:59)
[2017-02-09] MEDS: SODIUM CHLORIDE FLUSH 0.9% 10 ML SYRINGE IVP SCH ×2 (06:07→12:31)
[2017-02-09] MEDS: POLYETHYLENE GLYCOL 3350 17 GM PACKET PO SCH (07:58)
[2017-02-09] MEDS: METOPROLOL SUCCINATE 50 MG TABLET PO SCH (07:58)
[2017-02-09 08:52] VITALS: BP 150/80
[2017-02-09] MEDS: FAMOTIDINE 20 MG/50 ML 50 ML IV SCH (09:18)
--- NOTE | 2017-02-09 11:03 | PROVIDER PROGRESS NOTE ---
Assessment/Plan - Problem List (1) Pancreatitis Qualifiers: Chronicity: acute Pancreatitis type: alcohol induced Acute pancreatitis complication: no infection or necrosis Qualified Code(s): K85.20 - Alcohol induced acute pancreatitis without necrosis or infection Assessment/Plan: Slow improvement in pain. No longer clibnically dry. Will DC iv fluids. Will advance diet throughout the day today for a potential DCh home tomorrow. (2) Alcohol abuse Assessment/Plan: Continued abstinence recommended. Consider restarting SSRI for "dealing with" stressful issues. (3) HTN (hypertension) Assessment/Plan: HR OK on Metoprolol, but BP not adequately controlled, despite fair pain control. Will add Losartan, which she was on 1 year ago. (4) Abdominal bloating Assessment/Plan: XRays were neg for perforation or obstruction. Pt thinks it is from constipation. She is ambulating today which may help with a BM. Possible suppository to be tried later today. - Current Meds Current Meds: Current Medications Generic Name Dose Route Start Last Admin Trade Name Freq PRN Reason Stop Dose Admin Hydromorphone HCl 1 mg 02/07/17 10:30 02/09/17 06:02 Dilaudid Inj Syringe IVP 1 mg Q4H PRN Administration PAIN Famotidine 50 mls @ 100 mls/hr 02/06/17 21:00 02/09/17 10:02 Pepcid 20 Mg/50 Ml IV Infused BID SANJU Infusion Acetaminophen 100 mls @ 400 mls/hr 02/07/17 08:17 02/09/17 05:44 Ofirmev IV Infused Q6HR PRN Infusion PAIN Lorazepam 0.5 - 1 mg 02/06/17 19:52 02/08/17 08:00 Ativan PO 1 mg Q6H PRN Administration Alcohol Withdrawal Metoprolol Succinate 50 mg 02/08/17 01:00 02/09/17 07:58 Toprol Xl PO 50 mg DAILY SANJU Administration Polyethylene Glycol 17 gm 02/07/17 09:00 02/09/17 07:58 Miralax PO 17 gm DAILY SANJU Administration Prochlorperazine Edisylate 10 mg 02/06/17 19:43 02/07/17 22:49 Compazine Inj IVP 10 mg Q6HR PRN Administration Nausea / Vomiting Sodium Chloride 10 ml 02/06/17 19:43 02/07/17 03:38 Normal Saline Flush 0.9% IVP 10 ml PRN PRN Administration NEEDED PER PROVIDER ORDERS Sodium Chloride 10 ml 02/06/17 22:00 02/09/17 06:07 Normal Saline Flush 0.9% IVP Not Given Q8HR SANJU Temazepam 15 mg 02/06/17 19:43 02/07/17 21:28 Restoril PO 15 mg QPM PRN Administration Insomnia - Lab Result Fish Bone Diagrams: 02/08/17 04:50 02/08/17 04:50 - Additional Planning My Orders: My Active Orders 02/09/17 Lunch DIET [Full Liquid Diet] [DIET] Subjective - Subjective Patient Reports: Feeling Better, Other (Still no BM in several days Still mild abdominal pain) Objective Vital Signs: Vital Signs - 24 hr 02/08/17 02/08/17 02/08/17 15:56 17:47 20:21 Temperature 36.6 C Heart Rate [ 69 74 70 Brachial] Respiratory 18 Rate Blood Pressure 170/77 H 168/87 H 173/85 H [Right Brachial artery] O2 Saturation 99 02/08/17 02/09/17 23:50 08:51 Temperature 36.8 C 37.3 C Heart Rate [ 69 79 Brachial] Respiratory 16 20 Rate Blood Pressure 157/72 H 150/80 H [Right Brachial artery] O2 Saturation 96 97 Oxygen O2 Source Room air I&O (Last 24 Hrs): Intake and Output Totals x24h 02/07/17 02/08/17 02/09/17 23:59 23:59 23:59 Intake Total 2526.667 3219.166 0 Balance 2526.667 3219.166 1909 General: Alert, Oriented x3 HEENT: Mucous membr. moist/pink Neck: Supple Neuro: Non Focal Cardiovascular: Regular rate, No murmurs Respiratory: No respiratory distress Abdomen: Soft Extremities: No edema - Results Results: Laboratory Results WBC 8.1 x10^3/uL (4.8-10.8) 02/08/17 04:50 RBC 4.41 10^6/uL (4.20-5.40) 02/08/17 04:50 Hgb 14.6 g/dL (12.0-16.0) 02/08/17 04:50 Hct 43.1 % (37.0-47.0) 02/08/17 04:50 MCV 97.7 fL (81.0-99.0) 02/08/17 04:50 MCH 33.2 pg (27.0-31.0) H 02/08/17 04:50 MCHC 34.0 g/dL (32.0-36.0) 02/08/17 04:50 RDW 13.6 % (12.0-15.0) 02/08/17 04:50 Plt Count 218 10^3/uL (130-450) 02/08/17 04:50 MPV 7.0 fL (7.9-10.8) L 02/08/17 04:50 Neut # 6.2 10^3/uL (1.5-6.6) 02/08/17 04:50 Lymph # 0.9 10^3/uL (1.5-3.5) L 02/08/17 04:50 [place] # 0.9 10^3/uL (0.0-1.0) 02/08/17 04:50 Eos # 0.0 10^3/uL (0.0-0.7) 02/08/17 04:50 Baso # 0.0 10^3/uL (0.0-0.1) 02/08/17 04:50 Absolute Nucleated RBC 0.00 x10^3/uL 02/08/17 04:50 Nucleated RBC % 0.1 /100WBC 02/08/17 04:50 Sodium 133 mmol/L (135-145) L 02/08/17 04:50 Potassium 4.2 mmol/L (3.5-5.0) 02/08/17 04:50 Chloride 100 mmol/L (101-111) L 02/08/17 04:50 Carbon Dioxide 26 mmol/L (21-32) 02/08/17 04:50 Anion Gap 7.0 (6-13) 02/08/17 04:50 BUN < 5 mg/dL (6-20) L 02/08/17 04:50 Creatinine 0.5 mg/dL (0.4-1.0) 02/08/17 04:50 Estimated GFR (MDRD) 125 (>89) 02/08/17 04:50 Glucose 147 mg/dL (70-100) H 02/08/17 04:50 Calcium 9.0 mg/dL (8.5-10.3) 02/08/17 04:50 Magnesium 2.0 mg/dL (1.7-2.8) 02/08/17 04:50 Total Bilirubin 0.6 mg/dL (0.2-1.0) 02/08/17 04:50 Direct Bilirubin 0.1 mg/dL (0.1-0.5) 02/08/17 04:50 AST 33 IU/L (10-42) 02/08/17 04:50 ALT 28 IU/L (10-60) 02/08/17 04:50 Alkaline Phosphatase 98 IU/L (42-121) 02/08/17 04:50 Total Protein 6.5 g/dL (6.7-8.2) L 02/08/17 04:50 Albumin 3.3 g/dL (3.2-5.5) 02/08/17 04:50 Globulin 3.2 g/dL (2.1-4.2) 02/08/17 04:50 Albumin/Globulin Ratio 1.2 (1.0-2.2) 02/06/17 18:37 Amylase 207 U/L (28-100) H 02/08/17 04:50 Lipase 682 U/L (22-51) H 02/08/17 04:50 Urine Color YELLOW 02/06/17 19:50 Urine Clarity CLEAR (CLEAR) 02/06/17 19:50 Urine pH 6.5 PH (5.0-7.5) 02/06/17 19:50 Ur Specific [place] 1.020 (1.002-1.030) 02/06/17 19:50 Urine Protein NEGATIVE mg/dL (NEGATIVE) 02/06/17 19:50 Urine Glucose (UA) NEGATIVE mg/dL (NEGATIVE) 02/06/17 19:50 Urine Ketones TRACE mg/dL (NEGATIVE) 02/06/17 19:50 Urine Occult Blood NEGATIVE (NEGATIVE) 02/06/17 19:50 Urine Nitrite NEGATIVE (NEGATIVE) 02/06/17 19:50 Urine Bilirubin NEGATIVE (NEGATIVE) 02/06/17 19:50 Urine Urobilinogen 0.2 (NORMAL) E.U./dL (NORMAL) 02/06/17 19:50 Ur Leukocyte Esterase TRACE (NEGATIVE) H 02/06/17 19:50 Urine RBC 0-5 /HPF (0-5) 02/06/17 19:50 Urine WBC 6-10 /HPF (0-5) H 02/06/17 19:50 Ur Squamous Epith Cells FEW Squamous (<= Few) 02/06/17 19:50 Urine Bacteria Few /HPF (None Seen) 02/06/17 19:50 Ur Microscopic Review INDICATED 02/06/17 19:50 Urine Culture Comments INDICATED 02/06/17 19:50 Ethyl Alcohol < 5.0 mg/dL 02/06/17 18:37 - Procedures Procedures: Procedures INTRODUCE REGIONAL ANESTH IN PERIPH NRV, PLEXI, PERC (01/19/15) REPOSITION RIGHT ULNA WITH INT FIX, OPEN APPROACH (01/19/15) VENOUS CATHETERIZATION NEC (10/21/14)
--- NOTE | 2017-02-09 15:12 | Discharge Plan ---
Discharge Plan Disposition: 01 Home, Self Care Condition: Stable Prescriptions: Oxycodone HCl [Roxicodone] 15 mg PO BID PRN #4 tablet PRN Reason: Pain Diet: Soft Activity Restrictions: Activity as Tolerated Shower Restrictions: No Driving Restrictions: No Instruction Topics: Pancreatitis Additional Instructions or Follow Up instructions: ADVANCE YOUR DIET SLOWLY. SEE YOUR PCP IN FOLLOW-UP IN 1-2 WEEKS. No Smoking: If you smoke, Please STOP! Call for help. Follow-up with: Lia Vargas ARNP [Primary Care Provider] -
--- NOTE | 2017-02-13 09:21 | DISCHARGE SUMMARY ---
DATE OF SERVICE: 02/09/2017 Physician: Kiana Baez MD DATE OF ADMISSION: 02/06/2017 DATE OF DISCHARGE: 02/09/2017 HISTORY OF PRESENT ILLNESS: This is a 61-year-old white female with a history of hypertension, alcohol abuse and binging, and 2 prior episodes of alcohol-induced pancreatitis. The patient started drinking heavily again using wine and presented after 2 weeks of heavy alcohol intake with abdominal pain and diagnosed with pancreatitis. She was admitted for management of this. DISCHARGE DIAGNOSES AND HOSPITAL COURSE 1. Pancreatitis. The patient had an admission lipase of 102, which augustine to as high 682 during this admission. Amylase went from 74 to 207. The patient's anion gap was 14. All of these improved with bowel rest, pain control and IV hydration. The patient was also nauseated and required significant doses of antiemetics. On the day of discharge, her abdominal pain was controlled. She had no nausea and able to advance the diet rapidly from clear liquids up to a full diet and was able to be discharged home. The patient underwent a CT of the abdomen and pelvis which showed changes of mild pancreatitis, but no evidence of pseudocyst or necrotizing pancreatitis. 2. Alcohol abuse. The patient reported herself that she was very sorrowful that she had restarted drinking, and we discussed restarting an SSRI for dealing with the stressful issues that lead her to drinking. This could be done as an outpatient. She states that there was an SSRI tried previously that had minimal benefit. 3. Hypertension. The patient's blood pressure medications were continued during this admission and she did have elevated pressures, but these are felt to be due to being in pain for the first 2-1/2 days of the admission. 4. Constipation. The patient had no bowel movement during her stay here until just hours before her discharge, and a KUB film showed stool, but no evidence of bowel obstruction or perforation. LABORATORY AND IMAGING: Reviewed and as above. ALLERGIES: MORPHINE. MEDICATIONS AT THE TIME OF DISCHARGE 1. Albuterol inhaler p.r.n. 2. Conjugated estrogen cream application. 3. Xalatan eyedrops. 4. Oxycodone 15 mg p.o. b.i.d. p.r.n. pain and only 4 tablets were prescribed. 5. She gets Timolol eyedrops. CONDITION AT THE TIME OF DISCHARGE: Stable PHYSICAL EXAMINATION at the time of discharge: VITAL SIGNS: Blood pressure 150/80, heart rate 79, sinus rhythm, afebrile, oxygen saturation 97%. HEENT: Unremarkable with moist oral mucosa. NECK: Supple without JVD in a vertical position. No carotid bruits. CHEST: Clear. HEART: Sounds normal. ABDOMEN: Soft with positive bowel sounds. Nontender. EXTREMITIES: Without clubbing, cyanosis or edema. NEUROLOGIC: Intact. FOLLOWUP: With her PCP in 1-2 weeks. CODE STATUS: FULL CODE. TIME REQUIRED TO COMPLETE THIS ENTIRE DISCHARGE: 30 minutes. TD: 02/12/2017 17:24 MADI
== END 2017-02-09 16:15 | disposition home or self-care (01) | DRG 440 ==
LOC: ED 18:01 → MS2 19:44
PROVIDERS: ADMIT Hospitalist; ATTEND Internal Medicine
DX: K85.20 Alcohol induced acute pancreatitis without necrosis or infection (principal); I15.8 Other secondary hypertension; F10.20 Alcohol dependence, uncomplicated; K59.00 Constipation, unspecified; E86.0 Dehydration; F32.9 Major depressive disorder, single episode, unspecified; F41.9 Anxiety disorder, unspecified
CPT/HCPCS: 36415; 74000; 74177; 80048; 80053; 80076; 80320; 81001; 81003; 82150; 83690; 83735; 84132; 85025; 87086; 96361; 96374; 96375; 99283; 99284; 99285

== ENCOUNTER 2017-07-10 09:07 | Outpatient (CLI) | payer MEDICAID ==
--- NOTE | 2017-07-10 15:15 | XRAY Report ---
THREE VIEW RIGHT FOOT: 07/10/2017 CLINICAL INDICATION: Pain. FINDINGS: AP, lateral, oblique views of the right foot demonstrate mild osteoarthritis of the first metatarsophalangeal joint. There is no evidence of acute fracture or dislocation. No radiopaque foreign body is seen in the soft tissues. IMPRESSION: MILD OSTEOARTHRITIS. TD: 07/10/2017 15:08
== END 2017-07-10 09:08 | disposition home or self-care (01) ==
LOC: DI.S 09:07
PROVIDERS: ATTEND Nurse Practitioner Family
DX: M19.071 Primary osteoarthritis, right ankle and foot (principal)

== ENCOUNTER 2017-08-07 15:31 | Outpatient (CLI) | END 2017-08-07 15:32 | disposition home or self-care (01) ==

== ENCOUNTER 2018-01-29 15:18 | Outpatient (CLI) | payer MEDICAID ==
--- NOTE | 2018-01-30 08:20 | Mammography Report ---
Reason: SCREENING MAMMO Procedure Date: 01/29/2018 Accession Number: [id number] / [id number] Procedure: LISSET[facility] - Screening Mammo w/Serge CPT Code: FULL RESULT: EXAM: Screening Mammo w/Serge DATE: 01/29/2018 3:48 PM CLINICAL HISTORY: Screening. No reported personal or family history of breast cancer. Prior history of benign left breast biopsy. TECHNIQUE: Bilateral CC and MLO views were obtained. COMPARISON: 06/11/2013 and 08/12/2008. FINDINGS: The breasts demonstrate scattered fibroglandular densities bilaterally. Bilateral breasts: There are no suspicious masses, calcifications or areas of distortion. IMPRESSION: Negative examination RECOMMENDATION: Routine annual screening unless otherwise clinically indicated. BI-RADS CATEGORY 1: Negative STANDARD QUALIFYING STATEMENTS: 1. This examination was not reviewed with the aid of Computer-Aided Detection (CAD). 2. A negative or benign imaging report should not preclude biopsy if clinically suspicious findings are present. 3. Dense breasts may obscure an underlying neoplasm. 4. This examination was reviewed with the aid of 3D breast imaging (tomosynthesis).
== END 2018-01-29 15:19 | disposition home or self-care (01) ==
LOC: DI 15:18
PROVIDERS: ATTEND Nurse Practitioner Family
DX: Z12.31 Encounter for screening mammogram for malignant neoplasm of breast (principal)
CPT/HCPCS: 77063; 77067

== ENCOUNTER 2018-03-05 08:39 | Outpatient (CLI) | payer MEDICAID ==
[2018-03-05 10:58] LABS: BASOPHILS % (AUTO) 0.8 %; EOSINOPHILS # (AUTO) 0.1 10^3/uL (0.0-0.7); EOSINOPHILS % (AUTO) 2.1 %; HGB - HEMOGLOBIN 14.2 g/dL (12.0-16.0); LYMPHOCYTES # (AUTO) 1.7 10^3/uL (1.5-3.5); LYMPHOCYTES % (AUTO) 34.2 %; MEAN CORPUSCULAR HEMOGLOBIN 33.9 pg (27.0-31.0); MEAN CORPUSCULAR HGB CONC 34.5 g/dL (32.0-36.0); MEAN CORPUSCULAR VOLUME 98.2 fL (81.0-99.0); MEAN PLATELET VOLUME 7.3 fL (7.9-10.8); MONOCYTES # (AUTO) 0.6 10^3/uL (0.0-1.0); MONOCYTES % (AUTO) 11.4 %; NEUTROPHILS # (AUTO) 2.6 10^3/uL (1.5-6.6); NEUTROPHILS % (AUTO) 51.5 %; PLT - PLATELET COUNT 269 10^3/uL (130-450); RED CELL DISTRIBUTION WIDTH 13.5 % (12.0-15.0)
[2018-03-05 11:22] LABS: ALBUMIN 3.8 g/dL (3.2-5.5); ALBUMIN/GLOBULIN RATIO 1.1 (1.0-2.2); ALKALINE PHOSPHATASE 91 IU/L (42-121); ALT ALANINE AMINOTRANSFERASE 25 IU/L (10-60); AST ASPARTATE AMINOTRANSFERASE 29 IU/L (10-42); BILIRUBIN,TOTAL 0.7 mg/dL (0.2-1.0); BUN - BLOOD UREA NITROGEN 9 mg/dL (6-20); CALCIUM 9.3 mg/dL (8.5-10.3); CARBON DIOXIDE - CO2 28 mmol/L (21-32); CHLORIDE 104 mmol/L (101-111); CHOL/HDL RATIO 3.3 (<4.4); CHOLESTEROL 264 mg/dL; CREATININE 0.6 mg/dL (0.4-1.0); GFR - MDRD 101 (>89); GLUCOSE 83 mg/dL (70-100); HDL CHOLESTEROL 81 mg/dL; LDL CHOLESTEROL,CALCULATED 136 mg/dL; LDL/HDL RATIO 1.7 (<4.4); SODIUM 139 mmol/L (135-145); TOTAL PROTEIN 7.2 g/dL (6.7-8.2); VLDL CHOLESTEROL 47 mg/dL
== END 2018-03-05 08:40 | disposition home or self-care (01) ==
LOC: LAB.F 08:39
PROVIDERS: ATTEND Nurse Practitioner Family
DX: I10 Essential (primary) hypertension (principal); Z13.6 Encounter for screening for cardiovascular disorders; F32.9 Major depressive disorder, single episode, unspecified
CPT/HCPCS: 36415; 80050; 80061; 83721

== ENCOUNTER 2018-04-12 05:47 | Emergency (ER) | payer MEDICAID ==
--- NOTE | 2018-04-12 05:51 | ED Physician Documentation ---
PD HPI OPHTHO - Stated complaint Stated Complaint: R EYE INJURY - History obtained from History obtained from: Patient - History of Present Illness Timing - onset: How many minutes ago (30) Timing - duration: Minutes Timing - details: Abrupt onset Pain level now: 5 Location: Right Quality / character: Aching, Sharp Associated symptoms: Redness. No: Photophobia, Double vision, Decreased vision, Loss of vision Contributing factors: Wears glasses. No: Wears contacts Similar symptoms before: Has not had sx before Recently seen: Not recently seen - Additional information Additional information: approximately 30 minutes [employer], patient got into bed and startled her cat that was also in the bed. the cat scratched patients right eye. denies change in vision, but c/o right eye pain and scant bleeding Review of Systems Eyes: denies: Loss of vision, Decreased vision, Photophobia, Discharge PD PAST MEDICAL HISTORY - Past Medical History Cardiovascular: None Respiratory: Asthma, COPD Endocrine/Autoimmune: None GI: Pancreatitis MAINTENANCE SPECIALIST: None : None HEENT: Glaucoma Psych: None Musculoskeletal: Gout Derm: None - Past Surgical History Past Surgical History: Yes Ortho: Arthroscopic surgery, Other HEENT: Tonsil/Adenoidectomy - Present Medications Home Medications: Ambulatory Orders Medication Instructions Recorded Confirmed Estrogens, Conjugated Cream 1 applic VG .THREETIMESWEEKLY 10/14/15 02/07/17 [Premarin Cream] Albuterol Sulfate [Proair 1 - 2 puffs INH Q4H PRN 02/07/17 02/07/17 Respiclick] Latanoprost [Xalatan] 1 drops EACHEYE QPM 02/07/17 02/07/17 Timolol 0.25% Ophth Drops 1 drops EACHEYE BID 02/07/17 02/07/17 [Timoptic 0.25% Ophth Drops] Oxycodone HCl [Roxicodone] 15 mg PO BID PRN #4 tablet 02/09/17 Erythromycin Base [Erythromycin 1 film RIGHTEYE BID #10 oint...g. 04/12/18 Ophthalmic Ointment] oxyCODONE [Roxicodone] 5 - 10 mg PO Q6H PRN #14 tablet 04/12/18 - Allergies Allergies/Adverse Reactions: Allergies Allergy/AdvReac Type Severity Reaction Status Date / Time morphine AdvReac Hallucinati Verified 04/12/18 05:54 ons - Social History Does the pt smoke?: No Smoking Status: Never smoker Does the pt drink ETOH?: Yes Does the pt have substance abuse?: No - Immunizations Immunizations are current?: Yes - POLST Patient has POLST: No PD ED PE NORMAL - Vitals Vital signs reviewed: Yes - General General: Alert and oriented X 3, Well developed/nourished, Other (appears uncomfortable) - HEENT HEENT: PERRL, EOMI PD ED PE EXPANDED - HEENT HEENT: Other (no active bleeding. there is a scant/trace amount of dried blood adhering to right side of nasal bridge) HEENT Visual: 1 - bruising (; under slit-lamp exam, there is a superficial tear/abrasion without evidence of globe rupture) - Eyes Eyes: PERRL, Normal accommodation, EOMI, No eyelid FB (everted), Subconj hemorrhage, Fluorescein uptake (no corneal uptake; there is fluorescien uptake r ight eye lateral aspect of conjunctiva over sclera. negative teddy sign), Anterior chambers clear. No: Eyelid injury, Eyelid swelling, Eyelid erythema Results - Vitals Vitals: Oxygen O2 Source Room air PD MEDICAL DECISION MAKING - ED course Complexity details: reviewed results, re-evaluated patient, considered differential, d/w patient Departure - Departure Disposition: 01 Home, Self Care Clinical Impression: Conjunctival abrasion Condition: Good Instructions: ED Eye Injury Subconj Hemorrhage Prescriptions: Erythromycin Base [Erythromycin Ophthalmic Ointment] 1 film RIGHTEYE BID #10 oint...g. oxyCODONE [Roxicodone] 5 - 10 mg PO Q6H PRN #14 tablet PRN Reason: Pain Comments: Follow up with your eye doctor: call this morning to arrange for next available appointment Discharge Date/Time: 04/12/18 07:06
[2018-04-12] MEDS ORDERED: PROPARACAINE 0.5% OPHTH DROPS 15 ML RIGHTEYE STA (05:57)
[2018-04-12] MEDS ORDERED: ERYTHROMYCIN OPHTH OINT 1 GM TUBE RIGHTEYE STA (06:38)
[2018-04-12] MEDS ORDERED: oxyCODONE/ACET 5/325 Prepack 4 PO STA (06:39)
[2018-04-12 07:06] VITALS: BP 158/93
== END 2018-04-12 07:06 | disposition home or self-care (01) ==
LOC: ED 05:47
DX: S05.01XA Injury of conjunctiva and corneal abrasion without foreign body, right eye, initial encounter (principal); W55.03XA Scratched by cat, initial encounter
CPT/HCPCS: 99283; J3490

== ENCOUNTER 2018-05-15 09:49 | Outpatient (CLI) | payer MEDICAID ==
--- NOTE | 2018-05-15 12:26 | DEXA Report ---
Reason: PREVENTIVE CARE Procedure Date: 05/15/2018 Accession Number: [id number] / [id number] Procedure: DEX - Dexa Spine and/or Hip CPT Code: FULL RESULT: EXAM: Dexa Spine and/or Hip DATE: 05/15/2018 10:12 AM CLINICAL HISTORY: PREVENTIVE CARE TECHNIQUE: Dual energy x-ray absorptiometry (DXA) was performed on a goBramble System. Regions measured are the AP Spine, femoral neck, and if needed forearm. COMPARISON: None. In accordance with the International Society for Clinical Densitometry (ISCD) guidelines, data from previous exams may be reanalyzed using current recommendations and techniques. This is done to allow a more accurate basis for comparison with the current study. FINDINGS: The data for the lumbar spine is as follows: BMD (g/cm/cm) T-SCORE Z-SCORE REGION L1 1.122 -0.1 1.4 L2 1.096 -0.9 0.6 L3 1.116 -0.7 0.8 L4 1.119 -0.7 0.8 TOTAL 1.113 -0.6 0.9 NOTE: All evaluable vertebrae are used for classification The data for the hip is as follows: BMD (g/cm/cm) T-SCORE Z-SCORE REGION Neck 0.826 -1.5 -0.1 TOTAL 0.907 -0.8 0.3 NOTE: The femoral neck or total proximal femur, whichever is lowest, is used for classification. IMPRESSION: THE WHO CLASSIFICATION BASED ON THE INTERNATIONAL REFERENCE STANDARD IS OSTEOPENIA. THE FRACTURE RISK IS INCREASED. RECOMMENDATION: Patients with diagnosis of osteoporosis or osteopenia should have regular bone mineral density assessment. For those eligible for Medicare, routine testing is allowed once every 2 years. Testing frequency can be increased for patients who have rapidly progressing disease or for those who are receiving medical therapy to restore bone mass. COMMENT: World Health Organization (WHO) definitions for osteoporosis and osteopenia: NORMAL BMD: T-score at -1.0 or higher, fracture risk is low OSTEOPENIA BMD: T-score between -1.0 and -2.5, fracture risk is increased. OSTEOPOROSIS BMD: T-score at -2.5 or lower, fracture risk is high. National Osteoporosis Foundation recommends: 1. Obtain adequate dietary calcium (at least 1200 mg per day) and vitamin D (400-800 international units per day). 2. Participate, as appropriate, in regular weightbearing and muscle-strengthening exercise. 3. Avoid tobacco use and reduce alcohol and caffeine intake. 4. For more detailed information see the website at www.NOF.org.
== END 2018-05-15 09:50 | disposition home or self-care (01) ==
LOC: DI 09:49
PROVIDERS: ATTEND Registered Nurse
DX: Z00.00 Encounter for general adult medical examination without abnormal findings (principal); M85.88 Other specified disorders of bone density and structure, other site
CPT/HCPCS: 77080

== ENCOUNTER 2018-06-17 11:03 | Day surgery (SDC) | payer MEDICAID ==
[2018-06-17] MEDS ORDERED: LACTATED RINGERS 1,000 ML IV ONE (11:49)
[2018-06-17] MEDS ORDERED: MIDAZOLAM 2 MG/2 ML VIAL IVP ONE (12:30)
[2018-06-17] MEDS ORDERED: fentaNYL 250 MCG/5 ML VIAL IVP ONE (12:30)
[2018-06-17 13:50] VITALS: BP 158/78
== END 2018-06-17 11:04 | disposition home or self-care (01) ==
LOC: SDS 11:03
PROVIDERS: ATTEND Surgery
PROC: 0DJD8ZZ Inspection of Lower Intestinal Tract, Via Natural or Artificial Opening Endoscopic (ICD-10-PCS; principal; 2018-06-17 12:30)
DX: Z12.11 Encounter for screening for malignant neoplasm of colon (principal); K57.30 Diverticulosis of large intestine without perforation or abscess without bleeding; K64.8 Other hemorrhoids; K58.2 Mixed irritable bowel syndrome; I10 Essential (primary) hypertension; Z80.0 Family history of malignant neoplasm of digestive organs
CPT/HCPCS: 45378; J3010; J7120

== ENCOUNTER 2018-11-18 05:24 | Emergency (ER) | payer MEDICAID ==
[2018-11-18 05:52] LABS: BASOPHILS % (AUTO) 0.2 %; EOSINOPHILS % (AUTO) 0.3 %; HGB - HEMOGLOBIN 14.8 g/dL (12.0-16.0); LYMPHOCYTES # (AUTO) 0.5 10^3/uL (1.5-3.5); LYMPHOCYTES % (AUTO) 6.1 %; MEAN CORPUSCULAR HEMOGLOBIN 33.9 pg (27.0-31.0); MEAN CORPUSCULAR HGB CONC 35.1 g/dL (32.0-36.0); MEAN CORPUSCULAR VOLUME 96.8 fL (81.0-99.0); MEAN PLATELET VOLUME 8.5 fL (7.9-10.8); MONOCYTES # (AUTO) 0.6 10^3/uL (0.0-1.0); MONOCYTES % (AUTO) 7.3 %; NEUTROPHILS # (AUTO) 7.4 10^3/uL (1.5-6.6); NEUTROPHILS % (AUTO) 85.8 %; PLT - PLATELET COUNT 270 10^3/uL (130-450); RED BLOOD COUNT 4.36 10^6/uL (4.20-5.40); RED CELL DISTRIBUTION WIDTH 12.6 % (12.0-15.0); WHITE BLOOD COUNT 8.7 x10^3/uL (4.8-10.8)
[2018-11-18] MEDS ORDERED: SODIUM CHLORIDE 0.9% 1,000 ML IV ONE (05:53)
[2018-11-18] MEDS ORDERED: ONDANSETRON 4 MG/2 ML VIAL IVP STA ×2 (05:58→06:42)
[2018-11-18 06:01] LABS: ALBUMIN 4.4 g/dL (3.2-5.5); ALBUMIN/GLOBULIN RATIO 1.2 (1.0-2.2); BILIRUBIN,TOTAL 1.3 mg/dL (0.2-1.0); CALCIUM 9.3 mg/dL (8.5-10.3); CREATININE 0.5 mg/dL (0.4-1.0)
--- NOTE | 2018-11-18 06:19 | ED Physician Documentation ---
PD HPI NVD - Stated complaint Stated Complaint: N/V/D - Chief complaint Chief Complaint: Abd Pain - History obtained from History obtained from: Patient - History of Present Illness Timing - onset: Last night Timing - details: Abrupt onset Pain level now: 0 Associated symptoms: No: Fever, Abdominal pain Contributing factors: Sick contact. No: Bad food, Travel, Recent antibiotics, Alcohol use, Anticoagulated, Diabetes Improved by: Other (nothing) Worsened by: Eating Similar symptoms before: Has not had sx before Recently seen: Not recently seen - Additonal information Additional information: c/o sudden onset nausea, vomiting, diarrhea since last night. other member of household had same symptoms few days ago Review of Systems Constitutional: reports: Reviewed and negative Cardiac: reports: Reviewed and negative Respiratory: reports: Reviewed and negative GI: reports: Nausea, Vomiting, Diarrhea. 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 : None HEENT: Other Psych: Depression Musculoskeletal: Osteoarthritis, Gout, Chronic back pain Derm: None Other Past Medical History: IBS - Past Surgical History Past Surgical History: Yes Ortho: Arthroscopic surgery, Other /BOWLING ALLEY ATTENDANT: Other Cardiovascular: CABG HEENT: Tonsil/Adenoidectomy - Present Medications Home Medications: Ambulatory Orders Medication Instructions Recorded Confirmed Estrogens, Conjugated Cream 1 applic VG .THREETIMESWEEKLY 10/14/15 11/18/18 [Premarin Cream] Albuterol Sulfate [Proair 1 - 2 puffs INH Q4H PRN 02/07/17 11/18/18 Respiclick] Latanoprost [Xalatan] 1 drops EACHEYE QPM 02/07/17 11/18/18 Timolol 0.25% Ophth Drops 1 drops EACHEYE BID 02/07/17 11/18/18 [Timoptic 0.25% Ophth Drops] Lisinopril [Prinivil] 20 mg PO DAILY 06/17/18 11/18/18 Diphenoxylate/Atropine [Lomotil] 1 each PO QID PRN #14 tablet 11/18/18 LORazepam [Ativan] 0.5 mg PO Q6H PRN #14 tablet 11/18/18 Ondansetron Odt [Zofran] 4 mg TL Q6H PRN #14 tablet 11/18/18 - Allergies Allergies/Adverse Reactions: Allergies Allergy/AdvReac Type Severity Reaction Status Date / Time adhesive tape Allergy skin Verified 11/18/18 05:52 irritation codeine AdvReac dizzy Verified 11/18/18 05:52 morphine AdvReac Hallucinati Verified 11/18/18 05:52 ons - Social History Does the pt smoke?: No Smoking Status: Never smoker Does the pt drink ETOH?: Yes Does the pt have substance abuse?: No - Immunizations Immunizations are current?: Yes - POLST Patient has POLST: No PD ED PE NORMAL - Vitals Vital signs reviewed: Yes - General General: Alert and oriented X 3, No acute distress, Well developed/nourished - HEENT HEENT: Other (pasty/tacky mucous membranes) - Neck Neck: Supple, no meningeal sign - Cardiac Cardiac: No murmur - Respiratory Respiratory: No respiratory distress, Clear bilaterally - Abdomen Abdomen: Soft, Non tender, Non distended PD ED PE EXPANDED - Cardiac Cardiac: Tachy, Regular Rhythm - Abdomen Abdomen: Hyperactive BS Results - Vitals Vitals: Oxygen O2 Source Room air - Labs Labs: Laboratory Tests 11/18/18 11/18/18 05:40 05:40 WBC 8.7 RBC 4.36 Hgb 14.8 Hct 42.2 MCV 96.8 MCH 33.9 H MCHC 35.1 RDW 12.6 Plt Count 270 MPV 8.5 Neut # (Auto) 7.4 H Lymph # (Auto) 0.5 L Shelby # (Auto) 0.6 Eos # (Auto) 0.0 Baso # (Auto) 0.0 Absolute Nucleated RBC 0.00 Nucleated RBC % 0.0 Sodium 137 Potassium 3.9 Chloride 104 Carbon Dioxide 23 Anion Gap 10.0 BUN 12 Creatinine 0.5 Estimated GFR (MDRD) 124 Glucose 136 H Calcium 9.3 Total Bilirubin 1.3 H AST 130 H ALT 58 Alkaline Phosphatase 107 Total Protein 8.0 Albumin 4.4 Globulin 3.6 Albumin/Globulin Ratio 1.2 Lipase 22 PD MEDICAL DECISION MAKING - ED course Complexity details: reviewed results, re-evaluated patient, considered differential, d/w patient, d/w family ED course: patient reported feeling much better after iv fluids, zofran, lomotil. also given ativan for anxiety component. on reevaluation, she has moist mucous membranes and mild residual tachycardia Departure - Departure Disposition: 01 Home, Self Care Clinical Impression: Diarrhea, Vomiting Condition: Good Instructions: ED Diet Vomiting Diarrhea, ED Vomiting Diarrhea Nonspecific Ad Follow-Up: Gabriela Rhodes ARNP [Primary Care Provider] - Prescriptions: Diphenoxylate/Atropine [Lomotil] 1 each PO QID PRN #14 tablet PRN Reason: Diarrhea LORazepam [Ativan] 0.5 mg PO Q6H PRN #14 tablet PRN Reason: Anxiety Ondansetron Odt [Zofran] 4 mg TL Q6H PRN #14 tablet PRN Reason: Nausea / Vomiting Forms: Activity restrictions Discharge Date/Time: 11/18/18 08:41
[2018-11-18] MEDS ORDERED: SODIUM CHLORIDE 0.9% 1,000 ML IV STA (06:42)
[2018-11-18] MEDS ORDERED: LORazepam 2 MG/ML VIAL IVP STA (06:43)
[2018-11-18] MEDS ORDERED: DIPHENOX/ATROPINE 2.5/0.025 MG TABLET PO STA (06:43)
[2018-11-18 08:41] VITALS: BP 134/73
== END 2018-11-18 08:41 | disposition home or self-care (01) ==
LOC: ED 05:24
DX: R19.7 Diarrhea, unspecified (principal); R11.2 Nausea with vomiting, unspecified; R00.0 Tachycardia, unspecified; F41.9 Anxiety disorder, unspecified; Z87.19 Personal history of other diseases of the digestive system; I10 Essential (primary) hypertension
CPT/HCPCS: 36415; 80053; 83690; 85025; 96361; 96374; 96375; 96376; 99284; A9270; J2060

== ENCOUNTER 2019-02-21 09:54 | Outpatient (CLI) | payer MEDICAID ==
--- NOTE | 2019-02-21 12:06 | XRAY Report ---
Reason: PNEUMONIA, RIGHT UPPER LOBE, J18.9 Procedure Date: 02/21/2019 Accession Number: [id number] / [id number] Procedure: XRS - Chest 2 View X-Ray CPT Code: 16085 Final Report FULL RESULT: EXAM: CHEST RADIOGRAPHY EXAM DATE: 02/21/2019 10:06 AM. CLINICAL HISTORY: PNEUMONIA, RIGHT UPPER LOBE, J18. 9. COMPARISON: CHEST 2 VIEW PA/LAT 10/24/2014 8:19 PM ABDOMEN/PELVIS W/ 02/07/2017 1:32 PM. TECHNIQUE: 2 views. FINDINGS: Lungs/Pleura: 1.5 cm nodular density in the right upper lobe. Small left effusion or pleural thickening No pneumothorax. Normal volumes. Mediastinum: Heart and mediastinal contours are unremarkable. Other: None. IMPRESSION: 1.5 cm nodular density right upper lobe. Recommend CT scan. RADIA
== END 2019-02-21 09:55 | disposition home or self-care (01) ==
LOC: DI.S 09:54
PROVIDERS: ATTEND Registered Nurse
DX: J18.9 Pneumonia, unspecified organism (principal)
CPT/HCPCS: 71046

== ENCOUNTER 2019-02-27 10:43 | Outpatient (CLI) | payer MEDICAID ==
--- NOTE | 2019-02-27 11:40 | CT Report ---
Reason: PNEUMONIA Procedure Date: 02/27/2019 Accession Number: [id number] / [id number] Procedure: CT - CHEST WO CPT Code: Final Report FULL RESULT: EXAM: CT CHEST EXAM DATE: 02/27/2019 10:55 AM. CLINICAL HISTORY: PNEUMONIA. COMPARISONS: CHEST 2 VIEW 02/21/2019 10:19 AM. TECHNIQUE: Routine helical CT imaging was performed through the chest. IV contrast: None. Reconstructions: Coronal and sagittal. In accordance with CT protocol optimization, one or more of the following dose reduction techniques were utilized for this exam: automated exposure control, adjustment of mA and/or KV based on patient size, or use of iterative reconstructive technique. FINDINGS: Lungs/Pleura: Right upper lobe areas of tree-in-bud and groundglass infiltrate. Right upper lobe small nodular densities measuring up to 6 mm. Linear and discoid atelectasis or scarring of right middle lobe. Left lower lobe area of atelectasis posteriorly. Biapical scarring. Mediastinum: Normal. No adenopathy or masses. The heart and great vessels are normal. Bones: DJD spine Visualized Abdomen: Unremarkable. Other: None. IMPRESSION: 1. Right upper lobe areas of infiltrate, small nodular densities. Recommend follow-up to clear. 2. Bilateral areas of atelectasis. RADIA
== END 2019-02-27 10:44 | disposition home or self-care (01) ==
LOC: DI 10:43
PROVIDERS: ATTEND Registered Nurse
DX: J18.9 Pneumonia, unspecified organism (principal); J20.9 Acute bronchitis, unspecified; J11.1 Influenza due to unidentified influenza virus with other respiratory manifestations
CPT/HCPCS: 71250

== ENCOUNTER 2019-05-07 17:03 | Outpatient (CLI) | payer MEDICAID | END 2019-05-07 17:04 | disposition home or self-care (01) | LOC: COV 17:03 | PROVIDERS: ATTEND Family Medicine | DX: R05 Cough (principal) ==

== ENCOUNTER 2019-08-22 09:53 | Outpatient (CLI) | payer MEDICAID ==
--- NOTE | 2019-08-22 11:02 | XRAY Report ---
PROCEDURE: Hip w/Pelvis 2-3V LT INDICATIONS: HIP PAIN, LEFT TECHNIQUE: AP pelvis with lateral view(s) of the left hip(s). COMPARISON: None. FINDINGS: Bones: Moderate left hip joint osteoarthritis and mild to moderate right hip joint osteoarthritis is seen. No fractures or dislocations. Pelvic ring appears intact. No suspicious bony lesions. Soft tissues: The visualized bowel gas pattern is normal. No suspicious soft tissue calcifications. IMPRESSION: Moderate left hip joint osteoarthritis. No fracture or dislocation. No evidence of avascu lar necrosis. Reviewed by: Jamie Dawn MD on 08/22/2019 11:01 AM PDT Approved by: Jaime Dawn MD on 08/22/2019 11:01 AM PDT Station ID: [id number]
[2019-08-22 15:01] LABS: BASOPHILS % (AUTO) 0.9 %; EOSINOPHILS # (AUTO) 0.1 10^3/uL (0.0-0.7); EOSINOPHILS % (AUTO) 1.4 %; LYMPHOCYTES # (AUTO) 1.7 10^3/uL (1.5-3.5); LYMPHOCYTES % (AUTO) 38.8 %; MEAN CORPUSCULAR HEMOGLOBIN 33.7 pg (27.0-31.0); MEAN CORPUSCULAR HGB CONC 33.8 g/dL (32.0-36.0); MEAN CORPUSCULAR VOLUME 99.8 fL (81.0-99.0); MEAN PLATELET VOLUME 9.2 fL (7.9-10.8); MONOCYTES # (AUTO) 0.4 10^3/uL (0.0-1.0); MONOCYTES % (AUTO) 9.9 %; NEUTROPHILS # (AUTO) 2.2 10^3/uL (1.5-6.6); NEUTROPHILS % (AUTO) 48.8 %; PLT - PLATELET COUNT 301 10^3/uL (130-450); RED BLOOD COUNT 4.15 10^6/uL (4.20-5.40); RED CELL DISTRIBUTION WIDTH 13.2 % (12.0-15.0); WHITE BLOOD COUNT 4.4 x10^3/uL (4.8-10.8)
[2019-08-22 15:40] LABS: ALBUMIN 4.4 g/dL (3.2-5.5); ALBUMIN/GLOBULIN RATIO 1.6 (1.0-2.2); ALKALINE PHOSPHATASE 84 IU/L (42-121); ALT ALANINE AMINOTRANSFERASE 27 IU/L (10-60); AST ASPARTATE AMINOTRANSFERASE 33 IU/L (10-42); BILIRUBIN,TOTAL 0.6 mg/dL (0.2-1.0); BUN - BLOOD UREA NITROGEN 11 mg/dL (6-20); CALCIUM 9.3 mg/dL (8.5-10.3); CARBON DIOXIDE - CO2 26 mmol/L (21-32); CHLORIDE 105 mmol/L (101-111); CHOL/HDL RATIO 3.7 (<4.4); CHOLESTEROL 308 mg/dL; CREATININE 0.6 mg/dL (0.4-1.0); GLUCOSE 95 mg/dL (70-100); HDL CHOLESTEROL 83 mg/dL; LDL CHOLESTEROL,CALCULATED 183 mg/dL; LDL/HDL RATIO 2.2 (<4.4); SODIUM 138 mmol/L (135-145); TOTAL PROTEIN 7.1 g/dL (6.7-8.2); VLDL CHOLESTEROL 42 mg/dL
== END 2019-08-22 09:54 | disposition home or self-care (01) ==
LOC: DI.S 09:53
PROVIDERS: ATTEND Registered Nurse
DX: M16.12 Unilateral primary osteoarthritis, left hip (principal); I10 Essential (primary) hypertension; F32.9 Major depressive disorder, single episode, unspecified; E78.5 Hyperlipidemia, unspecified; J44.9 Chronic obstructive pulmonary disease, unspecified; J18.9 Pneumonia, unspecified organism; J20.9 Acute bronchitis, unspecified; Z20.828 Contact with and (suspected) exposure to other viral communicable diseases
CPT/HCPCS: 36415; 80050; 80061; 83721; 86769

== ENCOUNTER 2019-09-02 16:21 | Outpatient (CLI) | payer MEDICAID ==
--- NOTE | 2019-09-02 17:24 | CT Report ---
PROCEDURE: CT chest without IV contrast INDICATIONS: Follow-up for abnormal airspace opacity seen on 02/27/2019 exam TECHNIQUE: Noncontrast 5 mm thick sections acquired from the pulmonary apices to the posterior costophrenic angl es. 7 mm thick coronal and sagittal MIP reformats were then acquired. For radiation dose reduction, the following was used: automated exposure control, adjustment of mA and/or kV according to patient size. COMPARISON: 02/27/2019 CT chest FINDINGS: Image quality: Excellent. Lungs and pleura: Groundglass and small consolidative nodular opacities seen on the prior study have resolved. The lungs are currently clear with no abnormal airspace opacity. No significant pleural abn ormality. Mediastinum: Heart size is normal. No pericardial effusion. No mediastinal adenopathy by size crit eria. Thoracic aorta and central pulmonary arteries are normal in size. Esophagus is normal in natasha mary. No hiatal hernia. Bones and chest wall: No acute or suspicious osseous lesion. No threshold enlarged axillary lymphaden opathy. Abdomen: No acute finding the included unenhanced upper abdomen. IMPRESSION: Resolution of previously seen right upper lobe airspace opacities. No additional follow-up needed. Reviewed by: Albert Bravo MD on 09/02/2019 5:23 PM PDT Approved by: Albert Bravo MD on 09/02/2019 5:23 PM PDT Station ID: [id number]
== END 2019-09-02 16:22 | disposition home or self-care (01) ==
LOC: DI 16:21
PROVIDERS: ATTEND Internal Medicine
DX: R91.8 Other nonspecific abnormal finding of lung field (principal)
CPT/HCPCS: 71250

== ENCOUNTER 2019-11-26 13:09 | Outpatient (CLI) | payer MEDICARE | END 2019-11-26 13:10 | disposition home or self-care (01) | LOC: COV 13:09 | PROVIDERS: ATTEND Family Medicine | DX: Z20.828 Contact with and (suspected) exposure to other viral communicable diseases (principal) ==

== ENCOUNTER 2020-04-29 10:28 | Outpatient (CLI) | payer MEDICARE ==
--- NOTE | 2020-04-29 10:29 | XRAY Report ---
PROCEDURE: Chest 2 View X-Ray INDICATIONS: PALPITATIONS/ORTHOSTATIC DIZZINESS TECHNIQUE: 2 view(s) of the chest. COMPARISON: CT chest 09/02/2019 FINDINGS: Surgical changes and devices: None. Lungs and pleura: No pleural effusions or pneumothorax. Lungs are clear. Mediastinum: Mediastinal contours are normal. Heart size is normal. Bones and chest wall: No suspicious bony abnormalities. Soft tissues appear unremarkable. IMPRESSION: No acute cardiopulmonary process demonstrated radiographically. Reviewed by: Albert Bravo MD on 04/29/2020 10:28 AM PDT Approved by: Albert Bravo MD on 04/29/2020 10:28 AM PDT Station ID: [id number]
[2020-04-29 15:57] LABS: BASOPHILS % (AUTO) 0.5 %; EOSINOPHILS # (AUTO) 0.1 10^3/uL (0.0-0.7); EOSINOPHILS % (AUTO) 1.3 %; HCT - HEMATOCRIT 44.2 % (37.0-47.0); LYMPHOCYTES # (AUTO) 1.6 10^3/uL (1.5-3.5); MEAN CORPUSCULAR HEMOGLOBIN 33.9 pg (27.0-31.0); MEAN CORPUSCULAR HGB CONC 33.9 g/dL (32.0-36.0); MEAN CORPUSCULAR VOLUME 99.8 fL (81.0-99.0); MEAN PLATELET VOLUME 9.7 fL (7.9-10.8); MONOCYTES % (AUTO) 16.5 %; NEUTROPHILS # (AUTO) 3.6 10^3/uL (1.5-6.6); NEUTROPHILS % (AUTO) 56.4 %; PLT - PLATELET COUNT 273 10^3/uL (130-450); RED BLOOD COUNT 4.43 10^6/uL (4.20-5.40); RED CELL DISTRIBUTION WIDTH 13.3 % (12.0-15.0); WHITE BLOOD COUNT 6.3 x10^3/uL (4.8-10.8)
--- NOTE | 2020-04-29 16:10 | CARDIAC PROCEDURE NOTE ---
DATE OF SERVICE: 04/29/2020 Physician: Kiana Baez MD, [facility] INDICATION: Abnormal heart sounds, near syncope, left atrial enlargement. CARDIAC RISK FACTORS: Postmenopausal status, hypertension, family history of heart disease (her father, in his 60s). DESCRIPTION OF PROCEDURE: After signing informed consent, the patient underwent a Riky-protocol treadmill stress test with Echo imaging pre- and post-exercise. RESTING HEART RATE: 90. PEAK HEART RATE: 209 (in SVT vs Aflutter). RESTING BLOOD PRESSURE: 1. Lyin/95, Sittin/68, Standin/83. The patient's vital signs were checked for orthostasis before starting the treadmill test, because of her history of near syncope, which usually occurs in a standing position. BLOOD PRESSURE AT PEAK EXERCISE: 206/91. The patient had taken her usual Lisinopril dose this morning and her usual Metoprolol (half tablet) dose last night. Before exercise, when the patient was in the sitting position, she had a prodrome that she was about to have one of her dizzy spells, and then had dizziness for approximately 1 minute. This correlated with her rhythm changing from NSR to SVT, at a rate of 175. Blood pressure during this was stable at 167/83. The SVT stopped spontaneously. The patient felt fine and stated she could continue the test and perform exercise. The patient exercised for 2 minutes and 51 seconds on a Riky-protocol treadmill stress test. At approximately the 2-1/2 minute luciano, she went into paroxysms of atrial flutter and atrial fibrillation at rates of 180. The treadmill test was stopped because of this tachyarrhythmia. The patient did not have dizziness with these paroxysms of RVR. Blood pressure at this time was at its peak, which was 206/91. RESTING EKG: Normal sinus rhythm, left atrial and right atrial enlargement, vertical axis, right bundle branch block with ST and T-wave abnormality in V1 through V3. EKG AT PEAK: Sinus rhythm with frequent paroxysms of 3-7 beats in atrial fibrillation versus atrial flutter with RVR, new right axis deviation, unchanged right bundle branch block with same ST and T-wave abnormalities V1 through V3, but no new ST segment depressions or T-wave changes. After completing post-exercise Echo imaging, the patient recovered in a sitting position. At approximately 6 minutes of recovery, she again had paroxysms of atrial fibrillation/flutter and then went into sustained atrial flutter at a rate of 209. With this, she was dizzy and blood pressure was measured and was stable at 158/89. Because of recurring atrial tachy-arrhythmias that were symptomatic, the patient was taken to the emergency room, a report was given to Dr. Marquez, with plan for transfer to Cardiology at a hospital with higher level of care. IMPRESSION: 1. Abnormal resting EKG. 2. PSVT, Afib and Aflutter with RVR, which is symptomatic. 3. Poor exercise tolerance. 4. No ischemic EKG changes with exercise. 5. Echo images are reported separately. The preliminary report of the resting Echo images shows cardiomyopathy is present, with resting EF of 45% (possibly a tachycardia-induced cardiomyopathy). Post-exercise Echo pictures are still to be reviewed by the reading Ese Teacher. cc: ECHO Lang PA-C TD: 04/29/2020 15:45 MADI
[2020-04-29 16:19] LABS: ALBUMIN 4.4 g/dL (3.2-5.5); ALBUMIN/GLOBULIN RATIO 1.3 (1.0-2.2); BILIRUBIN,TOTAL 0.6 mg/dL (0.2-1.0); CALCIUM 9.9 mg/dL (8.5-10.3); CREATININE 0.6 mg/dL (0.4-1.0); MAGNESIUM 1.9 mg/dL (1.7-2.8); POTASSIUM 4.2 mmol/L (3.5-5.0); TOTAL PROTEIN 7.7 g/dL (6.7-8.2)
[2020-04-29 16:26] LABS: THYROID STIMULATING HORMONE 1.62 uIU/mL (0.34-5.60)
== END 2020-04-29 23:59 | disposition home or self-care (01) ==
LOC: DI.S 10:28
PROVIDERS: ATTEND Registered Nurse
DX: R42 Dizziness and giddiness (principal); R00.2 Palpitations; I45.10 Unspecified right bundle-branch block; R19.7 Diarrhea, unspecified; R01.2 Other cardiac sounds; R55 Syncope and collapse
CPT/HCPCS: 36415; 80053; 82607; 82746; 83735; 84443; 85025

== ENCOUNTER 2020-04-29 13:50 | Outpatient (CLI) | payer MEDICARE | END 2020-04-29 13:51 | disposition home or self-care (01) | LOC: DI 13:50 | PROVIDERS: ATTEND Physician Assistant Medical | DX: R94.31 Abnormal electrocardiogram [ECG] [EKG] (principal); I47.1 Supraventricular tachycardia; I48.91 Unspecified atrial fibrillation; I48.92 Unspecified atrial flutter; I51.7 Cardiomegaly; I45.10 Unspecified right bundle-branch block | CPT/HCPCS: 93350 ==

== ENCOUNTER 2020-04-29 15:25 | Emergency (ER) | payer MEDICARE ==
[2020-04-29] MEDS ORDERED: DILTIAZEM 125 MG in DEXTROSE 5% 100 ML IV STA (15:40)
[2020-04-29] MEDS ORDERED: diltiaZEM INJ 5 MG/ML VIAL IVP STA (15:40)
[2020-04-29] MEDS ORDERED: LORazepam 2 MG/ML VIAL IVP STA (15:41)
--- NOTE | 2020-04-29 15:45 | ED Physician Documentation ---
PD HPI CHEST PAIN - Stated complaint Stated Complaint: RAPID HEARTBEAT - Chief complaint Chief Complaint: Cardiac - History obtained from History obtained from: Patient - Additional information Additional information: 64-year-old woman around [place] started having episodes of presyncope and rapid palpitations. She has a pending appointment for cardiology in the middle of May but she had an expedited stress echo done today. Dr. Baez brought her over from there because she has an acute cardiomyopathy with an EF of 40 to 45% associated with intermittent tachydysrhythmias specifically A. fib and a flutter. She had been on metoprolol which has not been helpful with her symptoms., In fact it makes them worse. Review of Systems Ten Systems: 10 systems reviewed and negative Constitutional: reports: Fatigue. denies: Fever, Chills Cardiac: reports: Palpitations. 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 : None HEENT: Other Psych: Depression Musculoskeletal: Osteoarthritis, Gout, Chronic back pain Derm: None - Past Surgical History Past Surgical History: Yes Ortho: Arthroscopic surgery, Other /SURVEYOR GEODETIC: Other Cardiovascular: CABG HEENT: Tonsil/Adenoidectomy - Present Medications Home Medications: Ambulatory Orders Medication Instructions Recorded Confirmed Estrogens, Conjugated Cream 1 applic VG .THREETIMESWEEKLY 10/14/15 11/18/18 [Premarin Cream] Albuterol Sulfate [Proair 1 - 2 puffs INH Q4H PRN 02/07/17 11/18/18 Respiclick] Latanoprost [Xalatan] 1 drops EACHEYE QPM 02/07/17 11/18/18 Timolol 0.25% Ophth Drops 1 drops EACHEYE BID 02/07/17 11/18/18 [Timoptic 0.25% Ophth Drops] lisinopriL [Prinivil] 20 mg PO DAILY 06/17/18 11/18/18 Diphenoxylate/Atropine [Lomotil] 1 each PO QID PRN #14 tablet 11/18/18 LORazepam [Ativan] 0.5 mg PO Q6H PRN #14 tablet 11/18/18 Ondansetron Odt [Zofran] 4 mg TL Q6H PRN #14 tablet 11/18/18 - Allergies Allergies/Adverse Reactions: Allergies Allergy/AdvReac Type Severity Reaction Status Date / Time adhesive tape Allergy skin Verified 11/18/18 05:52 irritation codeine AdvReac dizzy Verified 11/18/18 05:52 morphine AdvReac Hallucinati Verified 11/18/18 05:52 ons - Social History Does the pt smoke?: No Smoking Status: Never smoker Does the pt drink ETOH?: Yes Does the pt have substance abuse?: No - Immunizations Immunizations are current?: Yes - POLST Patient has POLST: No PD ED PE NORMAL - Vitals Vital signs reviewed: Yes - General General: Alert and oriented X 3, Other (anxious) - HEENT HEENT: PERRL, EOMI - Neck Neck: Supple, no meningeal sign, No bony TTP - Cardiac Cardiac: RRR, No murmur - Respiratory Respiratory: No respiratory distress, Clear bilaterally - Abdomen Abdomen: Non tender, Non distended - Back Back: No CVA TTP, No spinal TTP - Derm Derm: Normal color, Warm and dry - Extremities Extremities: No edema, No calf tenderness / cord - Neuro Neuro: Alert and oriented X 3, Normal speech Eye Opening: Spontaneous Motor: Obeys Commands Verbal: Oriented GCS Score: 15 - Psych Psych: Normal mood, Normal affect Results - Vitals Vitals: Vital Signs - 24 hr 04/29/20 04/29/20 04/29/20 15:26 15:35 16:00 Temperature 36.7 C Heart Rate 114 H 117 H 113 H Respiratory 21 17 14 Rate Blood Pressure 213/104 H 213/99 H 156/93 H O2 Saturation 98 99 100 04/29/20 04/29/20 04/29/20 16:16 16:30 17:21 Temperature Heart Rate 95 99 108 H Respiratory 11 L 18 18 Rate Blood Pressure 154/82 H 151/79 H 144/80 H O2 Saturation 97 97 98 Oxygen O2 Source Room air - EKG (time done) 1529 Rate: Rate (enter#) (107) Rhythm: Sinus tachycardia Mayer: Normal Intervals: RBBB Ischemia: Normal ST segments - Labs Labs: Laboratory Tests 04/29/20 04/29/20 04/29/20 15:50 15:50 15:50 WBC 8.1 RBC 4.63 Hgb 15.4 Hct 44.8 MCV 96.8 MCH 33.3 H MCHC 34.4 RDW 13.0 Plt Count 245 MPV 9.6 Neut # (Auto) 4.4 Lymph # (Auto) 2.0 Latimer # (Auto) 1.5 H Eos # (Auto) 0.1 Baso # (Auto) 0.0 Absolute Nucleated RBC 0.00 Nucleated RBC % 0.0 Sodium 135 Potassium 4.6 Chloride 101 Carbon Dioxide 24 Anion Gap 10.0 BUN 11 Creatinine 0.6 Estimated GFR (MDRD) 100 Glucose 89 Calcium 10.1 Magnesium 2.0 Total Bilirubin 1.2 H AST 45 H ALT 21 Alkaline Phosphatase 92 Troponin I High Sens 3.4 B-Natriuretic Peptide Total Protein 7.6 Albumin 4.3 Globulin 3.3 Albumin/Globulin Ratio 1.3 TSH Nasal Adenovirus (PCR) Nasal B. parapertussis DNA (PCR) Nasal Coronavir 229E PCR Nasal Coronavir HKU1 PCR Nasal Coronavir NL63 PCR Nasal Coronavir OC43 PCR Nasal Enterovir/Rhinovir PCR Nasal Influenza B PCR Nasal Influenza A PCR Nasal Parainfluen 1 PCR Nasal Parainfluen 2 PCR Nasal Parainfluen 3 PCR Nasal Parainfluen 4 PCR Nasal RSV (PCR) Nasal B.pertussis DNA PCR Nasal C.pneumoniae (PCR) Ibrahima Human Metapneumo PCR Nasal M.pneumoniae (PCR) Nasal SARS-CoV-2 (PCR) 04/29/20 04/29/20 04/29/20 15:50 15:50 16:48 WBC RBC Hgb Hct MCV MCH MCHC RDW Plt Count MPV Neut # (Auto) Lymph # (Auto) Latimer # (Auto) Eos # (Auto) Baso # (Auto) Absolute Nucleated RBC Nucleated RBC % Sodium Potassium Chloride Carbon Dioxide Anion Gap BUN Creatinine Estimated GFR (MDRD) Glucose Calcium Magnesium Total Bilirubin AST ALT Alkaline Phosphatase Troponin I High Sens B-Natriuretic Peptide 35 Total Protein Albumin Globulin Albumin/Globulin Ratio TSH 2.73 Nasal Adenovirus (PCR) NOT DETECTED Nasal B. parapertussis DNA (PCR) NOT DETECTED Nasal Coronavir 229E PCR NOT DETECTED Nasal Coronavir HKU1 PCR NOT DETECTED Nasal Coronavir NL63 PCR NOT DETECTED Nasal Coronavir OC43 PCR NOT DETECTED Nasal Enterovir/Rhinovir PCR NOT DETECTED Nasal Influenza B PCR NOT DETECTED Nasal Influenza A PCR NOT DETECTED Nasal Parainfluen 1 PCR NOT DETECTED Nasal Parainfluen 2 PCR NOT DETECTED Nasal Parainfluen 3 PCR NOT DETECTED Nasal Parainfluen 4 PCR NOT DETECTED Nasal RSV (PCR) NOT DETECTED Nasal B.pertussis DNA PCR NOT DETECTED Nasal C.pneumoniae (PCR) NOT DETECTED Ibrahima Human Metapneumo PCR NOT DETECTED Nasal M.pneumoniae (PCR) NOT DETECTED Nasal SARS-CoV-2 (PCR) NOT DETECTED PD MEDICAL DECISION MAKING - ED course ED course: 64-year-old woman presents with intermittent tachydysrhythmia causing presumably an acute rate related cardiomyopathy. Dr. Mccann recommends transfer to higher level care for cardiac work-up. Her tachydysrhythmia is decreased but did not amy after 10 mg of IV diltiazem and drip. Spoke with Dr. Rivera at [facility] at 5:05 PM. He defers to the hospitalist for admission but agrees to consult. Accepted by the hospitalist to [facility] at 5:40 PM, Dr. Kolton Gacria Departure - Departure Disposition: 02 Transfer Acute Care Hosp Clinical Impression: Cardiomyopathy Qualifiers: Cardiomyopathy type: unspecified Qualified Code(s): I42.9 - Cardiomyopathy, unspecified Atrial fibrillation Qualifiers: Atrial fibrillation type: paroxysmal Qualified Code(s): I48.0 - Paroxysmal atrial fibrillation Condition: Serious
[2020-04-29 16:00] LABS: BASOPHILS % (AUTO) 0.5 %; EOSINOPHILS # (AUTO) 0.1 10^3/uL (0.0-0.7); EOSINOPHILS % (AUTO) 1.2 %; HCT - HEMATOCRIT 44.8 % (37.0-47.0); HGB - HEMOGLOBIN 15.4 g/dL (12.0-16.0); LYMPHOCYTES % (AUTO) 25.1 %; MEAN CORPUSCULAR HEMOGLOBIN 33.3 pg (27.0-31.0); MEAN CORPUSCULAR HGB CONC 34.4 g/dL (32.0-36.0); MEAN CORPUSCULAR VOLUME 96.8 fL (81.0-99.0); MEAN PLATELET VOLUME 9.6 fL (7.9-10.8); MONOCYTES # (AUTO) 1.5 10^3/uL (0.0-1.0); MONOCYTES % (AUTO) 18.6 %; NEUTROPHILS # (AUTO) 4.4 10^3/uL (1.5-6.6); NEUTROPHILS % (AUTO) 54.4 %; PLT - PLATELET COUNT 245 10^3/uL (130-450); RED BLOOD COUNT 4.63 10^6/uL (4.20-5.40); WHITE BLOOD COUNT 8.1 x10^3/uL (4.8-10.8)
[2020-04-29 16:18] LABS: ALBUMIN 4.3 g/dL (3.2-5.5); ALBUMIN/GLOBULIN RATIO 1.3 (1.0-2.2); BILIRUBIN,TOTAL 1.2 mg/dL (0.2-1.0); CALCIUM 10.1 mg/dL (8.5-10.3); CREATININE 0.6 mg/dL (0.4-1.0); POTASSIUM 4.6 mmol/L (3.5-5.0); TOTAL PROTEIN 7.6 g/dL (6.7-8.2)
[2020-04-29] MEDS ORDERED: SODIUM CHLORIDE 0.9% 1,000 ML IV STA (16:23)
[2020-04-29 17:51] LABS: B. PARAPERTUSSIS- RESP PCR PAN NOT DETECTED; B. PERTUSSIS- RESP PCR PANEL NOT DETECTED; C. PNEUMONIAE- RESP PCR PANEL NOT DETECTED; CORONAVIRUS 229E-RESP PCR NOT DETECTED; CORONAVIRUS HKU1-RESP PCR NOT DETECTED; CORONAVIRUS NL63-RESP PCR NOT DETECTED; CORONAVIRUS OC43-RESP PCR NOT DETECTED; HUMAN METAPNEUMOVIRUS NOT DETECTED; INFLUENZA A- RESP PCR PANEL NOT DETECTED; INFLUENZA B - RESP PCR PANEL NOT DETECTED; M. PNEUMONIAE- RESP PCR PANEL NOT DETECTED; PARAINFLUENZA VIRUS 1 NOT DETECTED; PARAINFLUENZA VIRUS 2 NOT DETECTED; PARAINFLUENZA VIRUS 3 NOT DETECTED; PARAINFLUENZA VIRUS 4 NOT DETECTED; RHINOVIRUS/ENTEROVIRUS NOT DETECTED; RSV- RESP PCR PANEL NOT DETECTED; SARS-CoV-2 -RESP PCR PANEL NOT DETECTED
[2020-04-29 19:05] VITALS: BP 133/73
== END 2020-04-29 18:59 | disposition short-term general hospital (02) ==
LOC: ED 15:25
DX: I42.9 Cardiomyopathy, unspecified (principal); I48.0 Paroxysmal atrial fibrillation; Z95.1 Presence of aortocoronary bypass graft; I45.10 Unspecified right bundle-branch block; Z20.822 Contact with and (suspected) exposure to COVID-19; R94.31 Abnormal electrocardiogram [ECG] [EKG]; I47.1 Supraventricular tachycardia; I48.92 Unspecified atrial flutter; R42 Dizziness and giddiness; R00.2 Palpitations; R19.7 Diarrhea, unspecified; R01.2 Other cardiac sounds; R55 Syncope and collapse; I51.7 Cardiomegaly
CPT/HCPCS: 36415; 71046; 80053; 82607; 82746; 83735; 83880; 84443; 84484; 85025; 87631; 93005; 93350; 96365; 96366; 96375; 96376; 99285; J2060; 0202U

== ENCOUNTER 2020-04-29 19:01 | Outpatient (CLI) | payer MEDICARE | END 2020-04-29 19:02 | disposition short-term general hospital (02) | LOC: EMS 19:01 | PROVIDERS: ATTEND Emergency Medicine | DX: R00.0 Tachycardia, unspecified (principal); I42.9 Cardiomyopathy, unspecified | CPT/HCPCS: A0425; A0426 ==

== ENCOUNTER 2020-05-13 11:15 | Outpatient (CLI) | payer MEDICARE ==
--- NOTE | 2020-05-13 16:21 | XRAY Report ---
PROCEDURE: Abdomen 1 View X-Ray INDICATIONS: CHANGE IN BOWEL HABIT TECHNIQUE: 1 view of the abdomen were acquired. COMPARISON: X-ray abdomen 02/08/2017 FINDINGS: Surgical changes and devices: None. Bowel: No pneumoperitoneum. The bowel gas pattern is normal. Soft tissues: No masses; visualized solid organ contours appear normal in size. No suspicious abdom inal calcifications. Bones: No suspicious bony abnormalities. IMPRESSION: Unremarkable. No obstruction. Reviewed by: Ivania Dennis MD on 05/13/2020 4:19 PM PDT Approved by: Ivania Dennis MD on 05/13/2020 4:19 PM PDT Station ID: [id number]
== END 2020-05-13 11:16 | disposition home or self-care (01) ==
LOC: DI.S 11:15
PROVIDERS: ATTEND Nurse Practitioner
DX: R19.4 Change in bowel habit (principal); R19.7 Diarrhea, unspecified

== ENCOUNTER 2020-05-18 08:39 | Outpatient (CLI) | payer MEDICARE | END 2020-05-18 08:40 | disposition home or self-care (01) | LOC: LAB.S 08:39 | PROVIDERS: ATTEND Nurse Practitioner | DX: R19.7 Diarrhea, unspecified (principal) | CPT/HCPCS: 36415; 82784; 83516; 86140; 86256 ==

== ENCOUNTER 2020-05-24 07:06 | Emergency (ER) | payer MEDICARE, MEDICAID ==
--- OUTSIDE RECORDS SUMMARY | 2020-05-24 07:10 | EXTERNAL MEDICAL SUMMARY RPT | Continuity of Care Document ---
:1955 Demographics Phone Unavailable Preferred Language Unknown Marital Status Unknown Caodaism Affiliation Unknown Race Unknown Ethnic Group Unknown Author Organization [place] Address [address] [phone] Phone Problems date description facility [id number] Acute diastolic (congestive) heart [facility] failure 20200429 Cardiomyopathy, unspecified [facility] 20200429 Chronic obstructive pulmonary disease, [facility] unspecified 20200429 Diarrhea, unspecified [facility] [id number] Essential (primary) hypertension [facility] [id number] Other hyperlipidemia [facility] [id number] Unspecified atrial fibrillation [facility] [id number] cardiomyopathy [facility] Social History date description facility [id number]
--- OUTSIDE RECORDS SUMMARY | 2020-05-24 07:27 | EXTERNAL MEDICAL SUMMARY RPT | Continuity of Care Document ---
:1955 Demographics Phone Unavailable Preferred Language Unknown Marital Status Unknown Mandaen Affiliation Unknown Race Unknown Ethnic Group Unknown Author Organization [place] Address [address] [phone] Phone Problems date description facility [id number] Acute diastolic (congestive) heart [facility] failure 20200429 Cardiomyopathy, unspecified [facility] [id number] Chronic obstructive pulmonary disease, [facility] unspecified [id number] Diarrhea, unspecified [facility] [id number] Essential (primary) hypertension [facility] [id number] Other hyperlipidemia [facility] [id number] Unspecified atrial fibrillation [facility] [id number] cardiomyopathy [facility] Social History date description facility [id number]
--- NOTE | 2020-05-24 08:09 | ED Physician Documentation ---
PD HPI LOWER EXT INJURY - Stated complaint Stated Complaint: LT ANKLE PX/SWELLING - Chief complaint Chief Complaint: Ext Problem - History obtained from History obtained from: Patient - History of Present Illness PD HPI LOW EXT INJURY LOCATION: Left, Ankle (dorsum), Foot Type of injury: No: Fall, Twist Where injury occurred: Home Timing - onset: How many days ago (2) Timing - details: Gradual onset, Still present Worsened by: Moving, Palpating Associated symptoms: Swelling, Discolored (red). No: Weakness, Numbness Similar symptoms before: Diagnosis (gout) Recently seen: Clinic (had history of gout and seen about 9 days ago for this, with Dx of gout and Rx Prednisone for 5 days and Tramadol, which patient has used for other pain problems and does better with it than with other pain meds. Finished steroids 4 days ago and now symptoms again developing.) Review of Systems Constitutional: denies: Fever, Chills Nose: denies: Rhinorrhea / runny nose, Congestion Throat: denies: Sore throat Respiratory: denies: Cough GI: denies: Abdominal Pain, Nausea, Vomiting, Diarrhea Skin: denies: Lesions (but has redness with swelling and tenderness dorsum left foot/ankle.), Abrasion (s), Laceration (s) Musculoskeletal: reports: Extremity pain Neurologic: denies: Focal weakness, Numbness PD PAST MEDICAL HISTORY - Past Medical History Cardiovascular: Hypertension, High cholesterol Respiratory: Asthma, COPD Endocrine/Autoimmune: None 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 : None HEENT: Other Psych: Depression Musculoskeletal: Osteoarthritis, Gout, Chronic back pain Derm: None - Past Surgical History Past Surgical History: Yes Ortho: Arthroscopic surgery, Other /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: Other Cardiovascular: CABG HEENT: Tonsil/Adenoidectomy - Present Medications Home Medications: Ambulatory Orders Medication Instructions Recorded Confirmed Estrogens, Conjugated Cream 1 applic VG .THREETIMESWEEKLY 10/14/15 05/24/20 [Premarin Cream] Albuterol Sulfate [Proair 1 - 2 puffs INH Q4H PRN 02/07/17 05/24/20 Respiclick] Latanoprost [Xalatan] 1 drops EACHEYE QPM 02/07/17 05/24/20 Timolol 0.25% Ophth Drops 1 drops EACHEYE BID 02/07/17 05/24/20 [Timoptic 0.25% Ophth Drops] Diphenoxylate/Atropine [Lomotil] 1 each PO QID PRN #14 tablet 11/18/18 05/24/20 Apixaban [Eliquis] 1 tab PO DAILY 05/24/20 05/24/20 Diltiazem HCl [Cardizem LA] 1 tab PO DAILY 05/24/20 05/24/20 dexAMETHasone [Decadron] 4 mg PO DAILY #10 tablet 05/24/20 traMADol [Ultram] 1 tab PO DAILY 05/24/20 05/24/20 - Allergies Allergies/Adverse Reactions: Allergies Allergy/AdvReac Type Severity Reaction Status Date / Time adhesive tape Allergy skin Verified 11/18/18 05:52 irritation codeine AdvReac dizzy Verified 11/18/18 05:52 morphine AdvReac Hallucinati Verified 11/18/18 05:52 ons - Social History Does the pt smoke?: No Smoking Status: Never smoker Does the pt drink ETOH?: Yes Does the pt have substance abuse?: No - Immunizations Immunizations are current?: Yes - POLST Patient has POLST: No PD ED PE NORMAL - Vitals Vital signs reviewed: Yes - General General: Alert and oriented X 3, Well developed/nourished, Other (appears in pain due to foot. ) - Extremities Extremities: No edema, No calf tenderness / cord, Other (tender dorsum left proximal foot/ankle with redness and swelling. No skin lesions. Toes and distal foot not tender. ) Results - Vitals Vitals: Vital Signs - 24 hr 05/24/20 05/24/20 07:09 09:10 Temperature 36.1 C L Heart Rate 78 99 Respiratory 16 16 Rate Blood Pressure 162/78 H 162/84 H O2 Saturation 100 100 Oxygen O2 Source Room air PD MEDICAL DECISION MAKING - ED course Complexity details: considered differential (seems c/w gout and had improved on steroids, but is back again now finished with them. Will repeat steroids. She has IBS so will not give colchicine nor NSAIDs. She states other pain meds than Tramadol make her sick and she still has some from recent other visit. ), d/w patient Departure - Departure Disposition: 01 Home, Self Care Clinical Impression: Exacerbation of gout Foot pain Qualifiers: Laterality: left Qualified Code(s): M79.672 - Pain in left foot Condition: Stable Record reviewed to determine appropriate education?: Yes Instructions: ED Arthritis Gout Follow-Up: Jared Kirby MD [Primary Care Provider] - Prescriptions: dexAMETHasone [Decadron] 4 mg PO DAILY #10 tablet Comments: Used dexamethasone steroid daily for the next several days up to 7 to 10 days. Continue until the gout seems fully resolved. Take Tylenol 650 mg 4 times a day for the next several days to a week. Stay well-hydrated and continue your other medicines. To that add your tramadol as needed for pains. I would anticipate improvement over the next day or 2 and resolution by 4 to 5 days. Follow-up with your primary care if not improving well or recurs again. Alternative medicines to try for this would either interfere with your anticoagulation (NSAIDs are not indicated in conjunction with anticoagulants), or would cause more intestinal symptoms (colchicine has a lot of GI side effects). Therefore redosing on a different steroids seems most appropriate at this time. I transmitted your prescription to the [facility] in [place]. Discharge Date/Time: 05/24/20 09:11
[2020-05-24] MEDS ORDERED: DEXAMETHASONE 10 MG/ML VIAL PO STA (08:26)
[2020-05-24] MEDS ORDERED: ACETAMINOPHEN 325 MG TABLET PO STA (08:26)
[2020-05-24] MEDS ORDERED: CHERRY SYRUP 10 ML UDC PO ONE (08:26)
[2020-05-24] MEDS ORDERED: traMADol 50 MG TABLET PO STA (08:26)
[2020-05-24 09:11] VITALS: BP 162/84
== END 2020-05-24 09:11 | disposition home or self-care (01) ==
LOC: ED 07:06
DX: M10.9 Gout, unspecified (principal)
CPT/HCPCS: 99282; 99283; A9270

== ENCOUNTER 2020-06-04 08:00 | Outpatient (CLI) | payer MEDICARE, MEDICAID ==
[2020-06-04 20:06] LABS: BASOPHILS % (AUTO) 0.3 %; EOSINOPHILS % (AUTO) 0.3 %; HGB - HEMOGLOBIN 15.4 g/dL (12.0-16.0); LYMPHOCYTES # (AUTO) 3.4 10^3/uL (1.5-3.5); LYMPHOCYTES % (AUTO) 28.1 %; MEAN CORPUSCULAR HGB CONC 33.5 g/dL (32.0-36.0); MEAN CORPUSCULAR VOLUME 98.5 fL (81.0-99.0); MEAN PLATELET VOLUME 9.7 fL (7.9-10.8); MONOCYTES % (AUTO) 8.4 %; NEUTROPHILS # (AUTO) 7.4 10^3/uL (1.5-6.6); NEUTROPHILS % (AUTO) 61.6 %; PLT - PLATELET COUNT 251 10^3/uL (130-450); RED BLOOD COUNT 4.67 10^6/uL (4.20-5.40); RED CELL DISTRIBUTION WIDTH 14.2 % (12.0-15.0); WHITE BLOOD COUNT 11.9 x10^3/uL (4.8-10.8)
[2020-06-04 20:14] LABS: RHEUMATOID FACTOR NEGATIVE (Negative)
[2020-06-04 20:18] LABS: BUN - BLOOD UREA NITROGEN 16 mg/dL (6-20); CALCIUM 9.4 mg/dL (8.5-10.3); CARBON DIOXIDE - CO2 27 mmol/L (21-32); CHLORIDE 96 mmol/L (101-111); CREATININE 0.5 mg/dL (0.4-1.0); GFR - MDRD 124 (>89); GLUCOSE 99 mg/dL (70-100); POTASSIUM 3.7 mmol/L (3.5-5.0); SODIUM 133 mmol/L (135-145); URIC ACID 2.9 mg/dL (2.6-7.2)
[2020-06-04 20:22] LABS: CRP - C-REACTIVE PROTEIN < 1.0 mg/dL (0-1.0)
== END 2020-06-04 23:59 | disposition home or self-care (01) ==
LOC: LAB.S 08:00
PROVIDERS: ATTEND Emergency Medicine
DX: M13.1 Monoarthritis, not elsewhere classified (principal)
CPT/HCPCS: 36415; 80048; 84550; 85025; 85651; 86038; 86140; 86430

== ENCOUNTER 2020-06-11 08:00 | Outpatient (CLI) | payer MEDICARE, MEDICAID | END 2020-06-11 23:59 | disposition home or self-care (01) | LOC: LAB.S 08:00 | PROVIDERS: ATTEND Physician Assistant | DX: J02.9 Acute pharyngitis, unspecified (principal); Z20.822 Contact with and (suspected) exposure to COVID-19 ==

== ENCOUNTER 2020-07-22 09:09 | Outpatient (CLI) | payer MEDICARE, MEDICAID ==
[2020-07-22 14:53] LABS: BASOPHILS # (AUTO) 0.1 10^3/uL (0.0-0.1); BASOPHILS % (AUTO) 1.1 %; EOSINOPHILS # (AUTO) 0.1 10^3/uL (0.0-0.7); EOSINOPHILS % (AUTO) 2.7 %; HCT - HEMATOCRIT 41.7 % (37.0-47.0); LYMPHOCYTES # (AUTO) 1.4 10^3/uL (1.5-3.5); LYMPHOCYTES % (AUTO) 30.4 %; MEAN CORPUSCULAR HEMOGLOBIN 33.2 pg (27.0-31.0); MEAN CORPUSCULAR HGB CONC 33.6 g/dL (32.0-36.0); MEAN CORPUSCULAR VOLUME 98.8 fL (81.0-99.0); MEAN PLATELET VOLUME 9.6 fL (7.9-10.8); MONOCYTES # (AUTO) 0.5 10^3/uL (0.0-1.0); MONOCYTES % (AUTO) 11.5 %; NEUTROPHILS # (AUTO) 2.4 10^3/uL (1.5-6.6); NEUTROPHILS % (AUTO) 54.1 %; PLT - PLATELET COUNT 322 10^3/uL (130-450); RED BLOOD COUNT 4.22 10^6/uL (4.20-5.40); WHITE BLOOD COUNT 4.5 x10^3/uL (4.8-10.8)
[2020-07-22 15:06] LABS: BUN - BLOOD UREA NITROGEN 12 mg/dL (6-20); CALCIUM 9.6 mg/dL (8.5-10.3); CARBON DIOXIDE - CO2 27 mmol/L (21-32); CHLORIDE 106 mmol/L (101-111); CHOLESTEROL 244 mg/dL; CREATININE 0.6 mg/dL (0.4-1.0); GFR - MDRD 100 (>89); GLUCOSE 88 mg/dL (70-100); HDL CHOLESTEROL 81 mg/dL; LDL CHOLESTEROL,CALCULATED 118 mg/dL; LDL/HDL RATIO 1.5 (<4.4); POTASSIUM 4.2 mmol/L (3.5-5.0); SODIUM 141 mmol/L (135-145); TRIGLYCERIDES 225 mg/dL; VLDL CHOLESTEROL 45 mg/dL
== END 2020-07-22 09:10 | disposition home or self-care (01) ==
LOC: LAB.S 09:09
PROVIDERS: ATTEND Internal Medicine Cardiovascular Disease
DX: I48.0 Paroxysmal atrial fibrillation (principal); E78.5 Hyperlipidemia, unspecified
CPT/HCPCS: 36415; 80048; 80061; 83721; 85025

== ENCOUNTER 2020-09-27 09:41 | Outpatient (CLI) | payer MEDICARE, MEDICAID ==
[2020-09-27 16:44] LABS: CHOL/HDL RATIO 2.7 (<4.4); CHOLESTEROL 245 mg/dL; HDL CHOLESTEROL 92 mg/dL; LDL CHOLESTEROL,CALCULATED 122 mg/dL; LDL/HDL RATIO 1.3 (<4.4); TRIGLYCERIDES 155 mg/dL; VLDL CHOLESTEROL 31 mg/dL
== END 2020-09-27 09:42 | disposition home or self-care (01) ==
LOC: LAB.S 09:41
PROVIDERS: ATTEND Internal Medicine Cardiovascular Disease
DX: E78.5 Hyperlipidemia, unspecified (principal)
CPT/HCPCS: 36415; 80061; 83721

== ENCOUNTER 2020-12-08 09:44 | Outpatient (CLI) | payer MEDICARE, MEDICAID ==
--- NOTE | 2020-12-08 14:23 | XRAY Report ---
PROCEDURE: Hip w/Pelvis 2-3V LT INDICATIONS: INJURY TO LEFT THIGH TECHNIQUE: AP pelvis with lateral view(s) of the bilateral hip(s). COMPARISON: None. FINDINGS: No acute fracture. Moderate narrowing of the left hip joint space. Mild narrowing of the right hip blanca int space. Scattered subchondral sclerosis and spurring. Lumbar spondylosis and facet disease. Soft tissues: The visualized bowel gas pattern is normal. No suspicious soft tissue calcifications . IMPRESSION: Moderate left and mild right hip joint degeneration. No acute fracture Reviewed by: Adams Vásquez MD on 12/08/2020 2:22 PM PDT Approved by: Adams Vásquez MD on 12/08/2020 2:22 PM PDT Station ID: [id number]
== END 2020-12-08 23:59 ==
LOC: DI.S 09:44
PROVIDERS: ATTEND Emergency Medicine
DX: S76.302A Unspecified injury of muscle, fascia and tendon of the posterior muscle group at thigh level, left thigh, initial encounter (principal); M16.0 Bilateral primary osteoarthritis of hip

== ENCOUNTER 2021-09-09 14:27 | Outpatient (CLI) | payer MEDICARE ==
--- NOTE | 2021-09-12 10:21 | Mammography Report ---
BILATERAL DIGITAL SCREENING MAMMOGRAM 3D/2D: 09/09/2021 Comparison is made to exams dated: 01/29/2018 mammogram and 06/11/2013 mammogram - [facility]. There are scattered fibroglandular elements in both breasts. There is a possible developing oval asymmetry with an obscured and spiculated margin in the right alisa ast posterior depth superior region seen on the mediolateral oblique view only. There is a possible developing asymmetry with an obscured and indistinct margin in the left breast mi ddle depth central to the nipple seen on the mediolateral oblique view only. This is increased in si ze. No other significant masses or calcifications are seen in either breast. IMPRESSION: INCOMPLETE: NEEDS ADDITIONAL IMAGING EVALUATION The possible developing oval asymmetry in the right breast posterior depth superior region seen on th e mediolateral oblique view only is indeterminate. Additional views with possible ultrasound are rec ommended. The possible developing asymmetry in the left breast middle depth central to the nipple seen on the m ediolateral oblique view only is indeterminate. Additional views with possible ultrasound are recomm ended. Based on the Tyrer Cuzick model (a risk assessment model) the patients lifetime risk is 9.4% and her 10 year risk is 5.2%. According to the ACR, ACS, and NCCN guidelines, an annual breast MRI exam brigida g with mammogram is recommended if the patients lifetime risk is 20% or greater. This exam was interpreted at Station ID: [id number]. NOTE: For mammograms, a report in lay terms will be sent to the patient. Approximately 15% of breast malignancies will not be visualized mammographically. In the management of a palpable breast mass, a negative mammogram must not discourage biopsy of a clinically suspicious lesion. Electronically Signed By: Ne smith/alisa:09/09/2021 17:15:11 ACR BI-RADS Category 0: Incomplete 3340F PARENCHYMAL PATTERN: (A) - The breast(s) demonstrate(s) scattered fibroglandular densities. BI-RADS CATEGORY: (0) - 0 Mammo and [place] [id number] Immediate follow-up LATERALITY: (B)
== END 2021-09-09 14:28 | disposition home or self-care (01) ==
LOC: DI 14:27
PROVIDERS: ATTEND Internal Medicine
DX: Z12.31 Encounter for screening mammogram for malignant neoplasm of breast (principal); R92.8 Other abnormal and inconclusive findings on diagnostic imaging of breast

== ENCOUNTER 2021-12-22 14:59 | Outpatient (CLI) | payer MEDICARE | END 2021-12-22 15:00 | disposition home or self-care (01) | LOC: SC 14:59 | PROVIDERS: ATTEND Nurse Practitioner Family | DX: R06.02 Shortness of breath (principal); I48.0 Paroxysmal atrial fibrillation; R55 Syncope and collapse ==

== ENCOUNTER 2021-12-26 11:41 | Outpatient (CLI) | payer MEDICARE ==
--- NOTE | 2021-12-26 15:02 | XRAY Report ---
PROCEDURE: Shoulder 3 View LT INDICATIONS: LEFT SHOULDER PAIN TECHNIQUE: 3 views of the shoulder were acquired. COMPARISON: None. FINDINGS: Mild glenohumeral and moderate acromioclavicular joint space narrowing and degenerative changes. No s uspicious lytic or blastic osseous lesion. No fracture. IMPRESSION: Degenerative changes without acute finding. Reviewed by: Albert Bravo MD on 12/26/2021 2:37 PM PST Approved by: Albert Bravo MD on 12/26/2021 2:37 PM [facility] Station ID: [id number]
== END 2021-12-26 11:42 | disposition home or self-care (01) ==
LOC: DI.S 11:41
PROVIDERS: ATTEND Physician Assistant
DX: M19.012 Primary osteoarthritis, left shoulder (principal)

== ENCOUNTER 2022-03-27 11:11 | Outpatient (CLI) | payer MEDICARE ==
[2022-03-27 11:21] LABS: BASOPHILS % (AUTO) 0.5 %; EOSINOPHILS # (AUTO) 0.1 10^3/uL (0.0-0.7); EOSINOPHILS % (AUTO) 0.9 %; HGB - HEMOGLOBIN 14.1 g/dL (12.0-16.0); LYMPHOCYTES % (AUTO) 26.5 %; MEAN CORPUSCULAR HEMOGLOBIN 32.3 pg (27.0-31.0); MEAN CORPUSCULAR HGB CONC 33.6 g/dL (32.0-36.0); MEAN CORPUSCULAR VOLUME 96.3 fL (81.0-99.0); MONOCYTES # (AUTO) 0.7 10^3/uL (0.0-1.0); MONOCYTES % (AUTO) 9.6 %; NEUTROPHILS # (AUTO) 4.6 10^3/uL (1.5-6.6); NEUTROPHILS % (AUTO) 62.1 %; PLT - PLATELET COUNT 305 10^3/uL (130-450); RED BLOOD COUNT 4.36 10^6/uL (4.20-5.40); RED CELL DISTRIBUTION WIDTH 12.4 % (12.0-15.0); WHITE BLOOD COUNT 7.5 x10^3/uL (4.8-10.8)
[2022-03-27 11:33] LABS: BILIRUBIN,URINE NEGATIVE (NEGATIVE); GLUCOSE, URINE (UA) NEGATIVE (NEGATIVE); KETONES,URINE (UA) NEGATIVE (NEGATIVE); LEUKOCYTE ESTERASE, URINE NEGATIVE (NEGATIVE); NITRITE,URINE NEGATIVE (NEGATIVE); OCCULT BLOOD,URINE NEGATIVE (NEGATIVE); PH,URINE 7.5 PH (5.0-7.5); PROTEIN,URINE NEGATIVE (NEGATIVE); UROBILINOGEN,URINE 0.2 (NORMAL) E.U./dL (NORMAL)
[2022-03-27 11:34] LABS: CALCIUM 9.7 mg/dL (8.5-10.3); CREATININE 0.6 mg/dL (0.4-1.0); POTASSIUM 4.2 mmol/L (3.5-5.0)
[2022-03-27 11:36] LABS: CLARITY,URINE CLEAR (CLEAR)
[2022-03-27 11:40] LABS: RBC,URINE 0-5 /HPF (0-5); WBC,URINE 0-3 /HPF (0-5)
[2022-03-27 11:41] LABS: BACTERIA,URINE Few /HPF (None Seen); SQUAMOUS EPITHELIAL CELL,UR MOD Squamous (<= Few)
[2022-03-27 13:09] LABS: ESTIMATED AVERAGE GLUCOSE 111 mg/dL (70-100); HEMOGLOBIN A1c% 5.5 % (4.27-6.07)
== END 2022-03-27 11:12 | disposition home or self-care (01) ==
LOC: LAB 11:11
PROVIDERS: ATTEND Orthopaedic Surgery
DX: Z01.818 Encounter for other preprocedural examination (principal); R73.9 Hyperglycemia, unspecified; N39.0 Urinary tract infection, site not specified
CPT/HCPCS: 36415; 80048; 81001; 83036; 85025; 87086; 93005

== ENCOUNTER 2022-04-08 07:00 | Outpatient (CLI) | payer MEDICARE, MEDICAID ==
--- NOTE | 2022-04-08 12:22 | XRAY Report ---
PROCEDURE: Chest 2 View X-Ray INDICATIONS: LEFT SIDED RIB PAIN/FALL TECHNIQUE: 2 views of the chest were acquired. COMPARISON: None. FINDINGS: Surgical changes and devices: None. Lungs and pleura: No pleural effusions or pneumothorax. Lungs are clear. Mediastinum: Mediastinal contours are normal. Heart size is normal. Bones and chest wall: No suspicious bony abnormalities. Soft tissues appear unremarkable. IMPRESSION: Normal two-view chest x-ray Reviewed by: Ellis Delgado MD on 04/08/2022 11:21 AM [facility] Approved by: Ellis Delgado MD on 04/08/2022 11:21 AM [facility] Station ID: [id number]
== END 2022-04-08 23:59 | disposition home or self-care (01) ==
LOC: DI.S 07:00
PROVIDERS: ATTEND Physician Assistant
DX: R07.81 Pleurodynia (principal)

== ENCOUNTER 2022-04-21 16:48 | Outpatient (CLI) | payer MEDICARE, MEDICAID | END 2022-04-21 16:49 | disposition critical access hospital (66) | LOC: EMS 16:48 | DX: R45.851 Suicidal ideations (principal); R46.89 Other symptoms and signs involving appearance and behavior; Z72.89 Other problems related to lifestyle; Z78.1 Physical restraint status | CPT/HCPCS: A0425; A0429 ==

== ENCOUNTER 2022-04-21 17:13 | Emergency (ER) | payer MEDICARE, MEDICAID ==
[~2022-04-21 17:13] MED LIST: HALOPERIDOL 5 MG/ML VIAL IVP STA; LORazepam 2 MG/ML VIAL IVP STA
--- NOTE | 2022-04-21 17:15 | ED Physician Documentation ---
PD HPI MHE - Stated complaint Stated Complaint: REGINA - History obtained from History obtained from: EMS - Additional information Additional information: 66-year-old woman with history of A-fib was brought in by ambulance. Reportedly under a lot of stress really lately related to having put her animals down and hip pain. Has been drinking alcohol and basically just fighting and screaming for the last day or so. Unable to obtain any history from the patient due to uncooperativeness. 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: Other Cardiovascular: CABG HEENT: Tonsil/Adenoidectomy - Present Medications Home Medications: Ambulatory Orders Medication Instructions Recorded Confirmed Estrogens, Conjugated Cream 1 applic VG .THREETIMESWEEKLY 10/14/15 05/24/20 [Premarin Cream] Timolol 0.25% Ophth Drops 1 drops EACHEYE BID 02/07/17 05/24/20 [Timoptic 0.25% Ophth Drops] Diphenoxylate/Atropine [Lomotil] 1 each PO QID PRN #14 tablet 11/18/18 05/24/20 Apixaban [Eliquis] 1 tab PO DAILY 05/24/20 05/24/20 Diltiazem HCl [Cardizem LA] 1 tab PO DAILY 05/24/20 05/24/20 Celecoxib [CeleBREX] See Rx Instructions .ROUTE .COMPLEX 12/22/21 12/22/21 Cholecalciferol (Vitamin D3) See Rx Instructions .ROUTE .COMPLEX 12/22/21 12/22/21 [Vitamin D3] Flecainide [Tambocar] See Rx Instructions .ROUTE .COMPLEX 12/22/21 12/22/21 Fluticasone [Flonase] See Rx Instructions .ROUTE .COMPLEX 12/22/21 12/22/21 Multivit-Min/Iron/Folic/Lutein See Rx Instructions .ROUTE .COMPLEX 12/22/21 12/22/21 [Multivitamin Women 50 Plus Tab] Travoprost [Travatan Z] See Rx Instructions .ROUTE .COMPLEX 12/22/21 12/22/21 - Allergies Allergies/Adverse Reactions: Allergies Allergy/AdvReac Type Severity Reaction Status Date / Time adhesive tape Allergy skin Verified 04/21/22 17:17 irritation codeine AdvReac dizzy Verified 04/21/22 17:17 morphine AdvReac Hallucinati Verified 04/21/22 17:17 ons - Social History Does the pt smoke?: No Smoking Status: Never smoker Does the pt drink ETOH?: Yes Does the pt have substance abuse?: No - Immunizations Immunizations are current?: Yes - POLST Patient has POLST: No PD ED PE NORMAL - Vitals Vital signs reviewed: Yes - General General: Other (She is screaming but not saying anything useful, not communicating per se.) - HEENT HEENT: PERRL, EOMI - Neck Neck: Supple, no meningeal sign, No bony TTP, No bruit - Cardiac Cardiac: Other (Irregularly irregular without murmur) - Respiratory Respiratory: No respiratory distress, Clear bilaterally - Abdomen Abdomen: Non tender - Derm Derm: Normal color, Warm and dry - Extremities Extremities: No edema, No calf tenderness / cord - Neuro Eye Opening: Spontaneous Motor: Withdraws to Pain Verbal: Confused GCS Score: 12 Results - Vitals Vitals: Vital Signs - 24 hr 04/21/22 04/21/22 04/21/22 17:13 17:43 19:43 Temperature 37.1 C 36.5 C Heart Rate 139 H 90 93 Respiratory 30 H 16 18 Rate Blood Pressure 163/120 H 142/82 H 137/83 H O2 Saturation 95 92 94 04/21/22 04/21/22 04/22/22 21:43 23:43 01:16 Temperature 36.9 C Heart Rate 73 101 H 110 H Respiratory 17 14 16 Rate Blood Pressure 139/85 H 133/81 H 164/98 H O2 Saturation 95 93 95 04/22/22 04/22/22 04/22/22 02:00 05:53 06:28 Temperature 36.8 C Heart Rate 98 113 H 108 H Respiratory 16 20 Rate Blood Pressure 128/81 H 145/85 H O2 Saturation 94 94 Oxygen O2 Source Room air - EKG (time done) 1741 EKG releavant findings:: EKG personally interpreted by author of this note. Relevant findings are: Rate: Rate (enter#) (87) Rhythm: NSR, LAE Intervals: RBBB QRS: Normal Ischemia: Normal ST segments - Labs Labs: Laboratory Tests 04/21/22 04/21/22 04/21/22 17:27 17:27 17:27 WBC 8.9 RBC 5.11 Hgb 16.2 H Hct 47.1 H MCV 92.2 MCH 31.7 H MCHC 34.4 RDW 13.0 Plt Count 389 MPV 8.6 Neut # (Auto) 4.7 Lymph # (Auto) 3.2 [place] # (Auto) 0.8 Eos # (Auto) 0.1 Baso # (Auto) 0.1 Absolute Nucleated RBC 0.00 Nucleated RBC % 0.0 Sodium 142 Potassium 4.1 Chloride 106 Carbon Dioxide 22 Anion Gap 14.0 H BUN 11 Creatinine 0.6 Estimated GFR (MDRD) 100 Glucose 111 H Calcium 9.6 Total Bilirubin 0.3 AST 36 ALT 35 Alkaline Phosphatase 132 H Total Protein 7.8 Albumin 4.2 Globulin 3.6 Albumin/Globulin Ratio 1.2 Lipase 48 TSH 4.24 Urine Color Urine Clarity Urine pH Ur Specific Taylor Urine Protein Urine Glucose (UA) Urine Ketones Urine Occult Blood Urine Nitrite Urine Bilirubin Urine Urobilinogen Ur Leukocyte Esterase Urine RBC Urine WBC Ur Epithelial Cells Ur Squamous Epith Cells Urine Bacteria Ur Microscopic Review Urine Culture Comments Salicylates < 6.0 Urine Opiates Screen Ur Oxycodone Screen Urine Methadone Screen Ur Propoxyphene Screen Acetaminophen < 10 L Ur Barbiturates Screen Ur Tricyclics Screen Ur Phencyclidine Scrn Ur Amphetamine Screen U Methamphetamines Scrn U Benzodiazepines Scrn Urine Cocaine Screen U Cannabinoids Screen Ethyl Alcohol 397.3 SARS-CoV-2 (PCR) 04/21/22 04/21/22 17:59 18:16 WBC RBC Hgb Hct MCV MCH MCHC RDW Plt Count MPV Neut # (Auto) Lymph # (Auto) [place] # (Auto) Eos # (Auto) Baso # (Auto) Absolute Nucleated RBC Nucleated RBC % Sodium Potassium Chloride Carbon Dioxide Anion Gap BUN Creatinine Estimated GFR (MDRD) Glucose Calcium Total Bilirubin AST ALT Alkaline Phosphatase Total Protein Albumin Globulin Albumin/Globulin Ratio Lipase TSH Urine Color STRAW Urine Clarity HAZY Urine pH 5.5 Ur Specific Taylor <=1.005 Urine Protein NEGATIVE Urine Glucose (UA) NEGATIVE Urine Ketones NEGATIVE Urine Occult Blood NEGATIVE Urine Nitrite NEGATIVE Urine Bilirubin NEGATIVE Urine Urobilinogen 0.2 (NORMAL) Ur Leukocyte Esterase SMALL H Urine RBC None Seen Urine WBC 4-5 Ur Epithelial Cells FEW Transitional Ur Squamous Epith Cells MOD Squamous H Urine Bacteria Few Ur Microscopic Review INDICATED Urine Culture Comments NOT INDICATED Salicylates Urine Opiates Screen NEGATIVE Ur Oxycodone Screen NEGATIVE Urine Methadone Screen NEGATIVE Ur Propoxyphene Screen NEGATIVE Acetaminophen Ur Barbiturates Screen NEGATIVE Ur Tricyclics Screen NEGATIVE Ur Phencyclidine Scrn NEGATIVE Ur Amphetamine Screen NEGATIVE U Methamphetamines Scrn NEGATIVE U Benzodiazepines Scrn NEGATIVE Urine Cocaine Screen NEGATIVE U Cannabinoids Screen NEGATIVE Ethyl Alcohol SARS-CoV-2 (PCR) NOT DETECTED PD Medical Decision Making - ED course ED course: 66yo zohaib arrives by EMS intoxicated. No e/o trauma. Did need chemical sedation initially as was quite belligerent, agressive, non redirectable. Did not require repeat restrain and slept. Care to overnight EDMD pending sobriety and reeval. Departure - Departure Disposition: 01 Home, Self Care Clinical Impression: Alcohol intoxication Condition: Stable Instructions: ED Alcohol Intoxication Comments: Your alcohol level was elevated yesterday. You were also distressed emotionally.You were brought in by an ambulance and with the police. You required medicine to help sedate you to be cooperative as you were trying to hurt others trying to help you. Please consider reaching out to your primary care doctor on Sunday - There are resources available in the community to help with the stress that you have been feeling as well as your substance use. If at anytime you are feeling unsafe or want More help you can always return to the emergency department. [facility] [address] [facility] offers a monitored and safe setting for individuals withdrawing from alcohol and drugs, and counseling for individuals experiencing a mental health crisis. All services are provided in a 10-bed facility where intensive medical monitoring is required along with stabilization services. The goal of these services is to assess a clients mental health and substance use disorder related needs, and assist them in accessing the services they need to recover. Follow-up with [facility] at [phone] to schedule psychiatric care and counseling. Discharge Date/Time: 04/22/22 06:28
--- NOTE | 2022-04-21 17:16 | ED Physician Documentation ---
Restraint [id number] - Immediate Situation Face to Face Evaluation Date: 04/21/22 Face to Face Evaluation Time: 17:15 Restraint Classification: Violent, chemical w/ physical hold Restraint Type: Soft extremity, Chemical - Patient's Reaction & Behaviors Safety: Non-compliant, Unable to Follow Commands Verbal: Screaming/Yelling Harm: Potential harm to others Physical: Aggressive behavior - Behavioral Condition Attitude: Indifferent Behavior: Belligerent, Agitated Orientation: Disoriented to all Mood: Angry, Anxious - Evaluation Review of Systems: unable d/t screaming Pertinent History/Illicit Drugs/Medications/Results: prob etoh - Plan Need to Continue or Terminate Violent or Chemical Restraint: Hopefully she will sober up and be more cooperative with time and not need further restraints.
[2022-04-21] MEDS ORDERED: diltiaZEM INJ 5 MG/ML VIAL IVP STA (17:34)
[2022-04-21 17:38] LABS: BASOPHILS # (AUTO) 0.1 10^3/uL (0.0-0.1); BASOPHILS % (AUTO) 0.7 %; EOSINOPHILS # (AUTO) 0.1 10^3/uL (0.0-0.7); EOSINOPHILS % (AUTO) 0.7 %; HCT - HEMATOCRIT 47.1 % (37.0-47.0); HGB - HEMOGLOBIN 16.2 g/dL (12.0-16.0); LYMPHOCYTES # (AUTO) 3.2 10^3/uL (1.5-3.5); LYMPHOCYTES % (AUTO) 36.4 %; MEAN CORPUSCULAR HEMOGLOBIN 31.7 pg (27.0-31.0); MEAN CORPUSCULAR HGB CONC 34.4 g/dL (32.0-36.0); MEAN CORPUSCULAR VOLUME 92.2 fL (81.0-99.0); MEAN PLATELET VOLUME 8.6 fL (7.9-10.8); MONOCYTES # (AUTO) 0.8 10^3/uL (0.0-1.0); MONOCYTES % (AUTO) 8.7 %; NEUTROPHILS # (AUTO) 4.7 10^3/uL (1.5-6.6); NEUTROPHILS % (AUTO) 53.2 %; PLT - PLATELET COUNT 389 10^3/uL (130-450); RED BLOOD COUNT 5.11 10^6/uL (4.20-5.40); WHITE BLOOD COUNT 8.9 x10^3/uL (4.8-10.8)
[2022-04-21 17:58] LABS: ACETAMINOPHEN < 10 ug/mL (10-30); ALBUMIN 4.2 g/dL (3.2-5.5); ALBUMIN/GLOBULIN RATIO 1.2 (1.0-2.2); ALKALINE PHOSPHATASE 132 IU/L (42-121); ALT ALANINE AMINOTRANSFERASE 35 IU/L (10-60); AST ASPARTATE AMINOTRANSFERASE 36 IU/L (10-42); BILIRUBIN,TOTAL 0.3 mg/dL (0.2-1.0); BUN - BLOOD UREA NITROGEN 11 mg/dL (6-20); CALCIUM 9.6 mg/dL (8.5-10.3); CARBON DIOXIDE - CO2 22 mmol/L (21-32); CHLORIDE 106 mmol/L (101-111); CREATININE 0.6 mg/dL (0.4-1.0); ETOH - ETHANOL 397.3 mg/dL; GFR - MDRD 100 (>89); GLUCOSE 111 mg/dL (70-100); LIPASE 48 U/L (22-51); POTASSIUM 4.1 mmol/L (3.5-5.0); SALICYLATE < 6.0 mg/dL; SODIUM 142 mmol/L (135-145); TOTAL PROTEIN 7.8 g/dL (6.7-8.2)
--- OUTSIDE RECORDS SUMMARY | 2022-04-21 18:17 | EXTERNAL MEDICAL SUMMARY RPT | Continuity of Care Document ---
:1955 Author Organization [facility] Address [address] [place] [address] Phone Care Team Providers Name Role Phone Unavailable Unavailable Unavailable Philly Martin, Federico Unavailable Unavailable Iker, Provider Unavailable Unavailable Jennifer Patient Registrar, Silvina Unavailable Unavai lable Allergies No information. Encounters No information. Functional Status No information. Immunizations No information. Medications date description facility 2022-03-27 00:00 [facility] 2022-03-28 00:00 [facility] 2022-04-08 00:00 [facility] 2022-04-08 00:00 [facility] 2022-04-10 00:00 [facility] 2022-03-27 00:00 [facility] 2022-03-28 00:00 [facility] 2022-04-08 00:00 [facility] 2022-04-08 00:00 [facility] 2022-04-10 00:00 [facility] 2022-03-27 00:00 [facility] 2022-03-28 00:00 [facility] 2022-04-08 00:00 [facility] 2022-04-08 00:00 [facility] 2022-04-10 00:00 [facility] 2022-03-27 00:00 [facility] 2022-03-28 00:00 [facility] 2022-04-08 00:00 [facility] 2022-04-08 00:00 [facility]vast[facility] 2022-04-10 00:00 [facility] 2022-03-27 00:00 [facility] 2022-03-28 00:00 [facility] 2022-04-08 00:00 [facility] 2022-04-08 00:00 [facility] 2022-04-10 00:00 [facility] 2022-03-27 00:00 [facility] 2022-03-28 00:00 [facility] 2022-04-08 00:00 [facility] 2022-04-08 00:00 [facility]vast[facility] 2022-04-10 00:00 [facility] 2022-03-27 00:00 [facility] 2022-03-28 00:00 [facility] 2022-04-08 00:00 [facility] 2022-04-08 00:00 [facility] 2022-04-10 00:00 [facility]vast[facility] 2022-03-27 00:00 [facility] 2022-03-28 00:00 [facility] [place] 2022-04-08 00:00 [facility] [place] 2022-04-08 00:00 [facility] [place] 2022-04-10 00:00 [facility] [place] Problems date description facility 2022-03-27 00:00 Asthma [facility] 2022-03-27 00:00 Family history of alcoholism Walk[facility]In [facility] 2022-03-27 00:00 Asthma, unspecified [facility] 2022-03-27 00:00 Unspecified asthma, uncomplicated [facility] 2022-03-27 00:00 Alcoholism in family [facility] 2022-03-27 00:00 Family history of alcohol abuse [facility] 2022-03-28 00:00 Asthma [facility] 2022-03-28 00:00 Family history of alcoholism Walk[facility]In [facility] 2022-03-28 00:00 Asthma, unspecified [facility] 2022-03-28 00:00 Unspecified asthma, uncomplicated [facility] 2022-03-28 00:00 Alcoholism in family [facility] 2022-03-28 00:00 Family history of alcohol abuse [facility] 2022-04-08 00:00 Fracture of left rib [facility] 2022-04-08 00:00 Fracture of left rib [facility] 2022-04-08 00:00 Asthma [facility] 2022-04-08 00:00 Asthma [facility] [place] 2022-04-08 00:00 Family history of alcoholism Walk[facility] 2022-04-08 00:00 Family history of alcoholism [facility] 2022-04-08 00:00 Rib pain [facility] 2022-04-08 00:00 Rib pain [facility] 2022-04-08 00:00 Asthma, unspecified [facility] 2022-04-08 00:00 Asthma, unspecified [facility] 2022-04-08 00:00 Unspecified chest pain [facility] 2022-04-08 00:00 Unspecified chest pain [facility] 2022-04-08 00:00 Unspecified asthma, uncomplicated [facility] 2022-04-08 00:00 Unspecified asthma, uncomplicated [facility] 2022-04-08 00:00 Pleurodynia [facility] 2022-04-08 00:00 Pleurodynia [facility] 2022-04-08 00:00 Fracture of one rib, left side, [facility] initial encounter for closed [facility] fracture 2022-04-08 00:00 Fracture of one rib, left side, [facility] initial encounter for closed [facility] fracture 2022-04-08 00:00 Alcoholism in family [facility] 2022-04-08 00:00 Alcoholism in family [facility] 2022-04-08 00:00 Family history of alcohol abuse [facility] 2022-04-08 00:00 Family history of alcohol abuse [facility] 2022-04-10 00:00 Asthma [facility] 2022-04-10 00:00 Family history of alcoholism [facility] 2022-04-10 00:00 Asthma, unspecified [facility] 2022-04-10 00:00 Unspecified asthma, uncomplicated [facility] 2022-04-10 00:00 Alcoholism in family [facility] 2022-04-10 00:00 Family history of alcohol abuse [facility] Procedures date description facility 2022-04-08 00:00 Visit Code Hold [facility] 2022-04-08 00:00 Visit Code Hold [facility] Results/Labs test date author facility value unit interpret ation Result panel 1 (unknown) (no date) (unknown) Walk[facility] (no value) (units [facility] Result panel 2 (unknown) (no date) (unknown) Walk[facility] (no value) [facility] Result panel 3 (unknown) (no date) (unknown) [facility] (no value) [facility] Result panel 4 (unknown) (no date) (unknown) [facility] (no value) [facility] Result panel 5 (unknown) (no date) (unknown) [facility] (no value) [facility] Result panel 6 (unknown) (no date) (unknown) [facility] (no value) [facility] Result panel 7 (unknown) (no date) (unknown) [facility] (no value) [facility] Result panel 8 (unknown) (no date) (unknown) [facility] (no value) [facility] Result panel 9 (unknown) (no date) (unknown) Walk-[facility] (no value) [facility] Result panel 10 (unknown) (no date) (unknown) Walk-[facility] (no value) [facility] Result panel 11 (unknown) (no date) (unknown) Walk-[facility] (no value) [facility]units [facility] Result panel 12 (unknown) (no date) (unknown) [facility] (no value) [facility] Result panel 13 (unknown) (no date) (unknown) [facility] (no value) [facility] Result panel 14 (unknown) (no date) (unknown) Walk-[facility] (no value) [facility]units [facility] Result panel 15 (unknown) (no date) (unknown) Walk-[facility] (no value) [facility]units [facility] Result panel 16 (unknown) (no date) (unknown) Walk-[facility] (no value) [facility] Result panel 17 (unknown) (no date) (unknown) Walk-[facility] (no value) [facility] Result panel 18 (unknown) (no date) (unknown) Walk-[facility] (no value) [facility] Result panel 19 (unknown) (no date) (unknown) Walk-[facility] (no value) [facility] Result panel 20 (unknown) (no date) (unknown) Walk-[facility] (no value) [facility] Result panel 21 (unknown) (no date) (unknown) Walk-[facility] (no value) [facility] Result panel 22 (unknown) (no date) (unknown) Walk-[facility] (no value) [facility]units [facility] Result panel 23 (unknown) (no date) (unknown) Walk-[facility] (no value) [facility] Result panel 24 (unknown) (no date) (unknown) Walk-[facility] (no value) [facility]units [facility] Result panel 25 (unknown) (no date) (unknown) Walk-[facility] (no value) (units [facility] Result panel 26 (unknown) (no date) (unknown) Walk-[facility] (no value) [facility] Result panel 27 (unknown) (no date) (unknown) Walk-[facility] (no value) [facility] Result panel 28 (unknown) (no date) (unknown) Walk-[facility] (no value) [facility] Result panel 29 (unknown) (no date) (unknown) Walk-[facility] (no value) [facility] Result panel 30 (unknown) (no date) (unknown) Walk-[facility] (no value) [facility] Result panel 31 (unknown) (no date) (unknown) Walk-[facility] (no value) [facility]units [facility] Result panel 32 (unknown) (no date) (unknown) Walk-[facility] (no value) [facility] Result panel 33 (unknown) (no date) (unknown) Walk-[facility] (no value) [facility] Result panel 34 (unknown) (no date) (unknown) Walk-[facility] (no value) [facility]units [facility] Result panel 35 (unknown) (no date) (unknown) Walk-[facility] (no value) [facility]units [facility] Result panel 36 (unknown) (no date) (unknown) Walk-[facility] (no value) [facility]units [facility] Result panel 37 (unknown) (no date) (unknown) Walk-[facility] (no value) [facility]units [facility] Result panel 38 (unknown) (no date) (unknown) Walk-[facility] (no value) (units [facility] Result panel 39 (unknown) (no date) (unknown) Walk-[facility] (no value) (units ([facility] Result panel 40 (unknown) (no date) (unknown) Walk-[facility] (no value) [facility]units [facility] Result panel 41 (unknown) (no date) (unknown) Walk-[facility] (no value) [facility]units [facility] Result panel 42 (unknown) (no date) (unknown) Walk-[facility] (no value) [facility]units [facility] Result panel 43 (unknown) (no date) (unknown) Walk-[facility] (no value) (units [facility] Result panel 44 (unknown) (no date) (unknown) Walk-[facility] (no value) (units [facility] Result panel 45 (unknown) (no date) (unknown) Walk-[facility] (no value) (units [facility] Result panel 46 (unknown) (no date) (unknown) Walk-[facility] (no value) [facility]units [facility] Result panel 47 (unknown) (no date) (unknown) Walk-[facility] (no value) (units [facility] Result panel 48 (unknown) (no date) (unknown) Walk-[facility] (no value) (units [facility] Result panel 49 (unknown) (no date) (unknown) Walk-[facility] (no value) (units [facility] Result panel 50 (unknown) (no date) (unknown) Walk-[facility] (no value) [facility]units [facility] Result panel 51 (unknown) (no date) (unknown) Walk-[facility] (no value) [facility]units [facility] Result panel 52 (unknown) (no date) (unknown) Walk-[facility] (no value) (units [facility] Result panel 53 (unknown) (no date) (unknown) Walk-[facility] (no value) (units [facility] Result panel 54 (unknown) (no date) (unknown) Walk-[facility] (no value) (units [facility] Result panel 55 (unknown) (no date) (unknown) Walk-[facility] (no value) (units [facility] Result panel 56 (unknown) (no date) (unknown) Walk-[facility] (no value) (units [facility] Result panel 57 (unknown) (no date) (unknown) Walk-[facility] (no value) (units [facility] Result panel 58 (unknown) (no date) (unknown) Walk-[facility] (no value) (units ([facility] Result panel 59 (unknown) (no date) (unknown) Walk-[facility] (no value) (units [facility] Result panel 60 (unknown) (no date) (unknown) Walk-[facility] (no value) (units [facility] Result panel 61 (unknown) (no date) (unknown) Walk-[facility] (no value) (units [facility] Result panel 62 (unknown) (no date) (unknown) Walk-[facility] (no value) (units ([facility] Result panel 63 (unknown) (no date) (unknown) Walk-[facility] (no value) (units ([facility] Result panel 64 (unknown) (no date) (unknown) Walk-[facility] (no value) (units ([facility] Result panel 65 (unknown) (no date) (unknown) Walk-In (no value) (units ([facility] Result panel 66 (unknown) (no date) (unknown) Walk-In (no value) (units ([facility] Result panel 67 (unknown) (no date) (unknown) Walk-In (no value) (units ([facility] n[facility] Result panel 68 (unknown) (no date) (unknown) Walk-In (no value) (units ([facility] n[facility] Result panel 69 (unknown) (no date) (unknown) Walk-In (no value) (units ([facility] n[facility] Result panel 70 (unknown) (no date) (unknown) Walk-In (no value) (units ([facility] Result panel 71 (unknown) (no date) (unknown) Walk-In (no value) (units ([facility] n[facility]) [facility] Result panel 72 (unknown) (no date) (unknown) Walk-In (no value) (units ([facility] n[facility] Result panel 73 (unknown) (no date) (unknown) Walk-In (no value) (units ([facility] Result panel 74 (unknown) (no date) (unknown) Walk-In (no value) (units ([facility] Result panel 75 (unknown) (no date) (unknown) Walk-[facility] (no value) (units ([facility] Result panel 76 (unknown) (no date) (unknown) Walk-In (no value) (units ([facility] Result panel 77 (unknown) (no date) (unknown) Walk-In (no value) (units ([facility] Result panel 78 (unknown) (no date) (unknown) Walk-In (no value) (units ([facility] Result panel 79 (unknown) (no date) (unknown) Walk-In (no value) (units ([facility] Result panel 80 (unknown) (no date) (unknown) Walk-In (no value) (units ([facility] Result panel 81 (unknown) (no date) (unknown) Walk-In (no value) (units ([facility] n[facility] Result panel 82 (unknown) (no date) (unknown) Walk-In (no value) (units ([facility] Result panel 83 (unknown) (no date) (unknown) Walk-In (no value) (units ([facility] n[facility] Result panel 84 (unknown) (no date) (unknown) Walk-In (no value) (units ([facility] Result panel 85 (unknown) (no date) (unknown) Walk-In (no value) (units ([facility] Result panel 86 (unknown) (no date) (unknown) Walk-In (no value) (units ([facility] n[facility] Result panel 87 (unknown) (no date) (unknown) Walk-In (no value) (units ([facility] n[facility] Result panel 88 (unknown) (no date) (unknown) Walk-In (no value) (units ([facility] Result panel 89 (unknown) (no date) (unknown) Walk-In (no value) (units ([facility] Result panel 90 (unknown) (no date) (unknown) Walk-In (no value) (units ([facility] Result panel 91 (unknown) (no date) (unknown) Walk-In (no value) (units ([facility] Result panel 92 (unknown) (no date) (unknown) Walk-In (no value) (units ([facility] Result panel 93 (unknown) (no date) (unknown) Walk-In (no value) (units ([facility] Result panel 94 (unknown) (no date) (unknown) Walk-In (no value) (units ([facility] Result panel 95 (unknown) (no date) (unknown) Walk-In (no value) (units ([facility] Result panel 96 (unknown) (no date) (unknown) Walk-In (no value) (units ([facility] Result panel 97 (unknown) (no date) (unknown) Walk-In (no value) (units ([facility]own[facility] Result panel 98 (unknown) (no date) (unknown) Walk-In (no value) (units ([facility] Result panel 99 (unknown) (no date) (unknown) Walk-In (no value) (units ([facility] Result panel 100 (unknown) (no date) (unknown) Walk-In (no value) (units ([facility] Result panel 101 (unknown) (no date) (unknown) Walk-In (no value) (units ([facility] n[facility] Result panel 102 (unknown) (no date) (unknown) Walk-In (no value) (units ([facility] Result panel 103 (unknown) (no date) (unknown) Walk-In (no value) (units ([facility] Result panel 104 (unknown) (no date) (unknown) Walk-In (no value) (units ([facility] Result panel 105 (unknown) (no date) (unknown) Walk-In (no value) (units ([facility] Result panel 106 (unknown) (no date) (unknown) Walk-In (no value) (units ([facility] n[facility]) [facility] Result panel 107 (unknown) (no date) (unknown) [facility] (no value[facility] Result panel 108 (unknown) (no date) (unknown) [facility] (no value) [facility] Result panel 109 (unknown) (no date) (unknown) [facility] (no value) [facility] Result panel 110 (unknown) (no date) (unknown) [facility] (no value) [facility] Result panel 111 (unknown) (no date) (unknown) [facility] (no value) [facility] Result panel 112 (unknown) (no date) (unknown) [facility] (no value) [facility] Result panel 113 (unknown) (no date) (unknown) [facility] (no value) [facility] Result panel 114 (unknown) (no date) (unknown) [facility] (no value) [facility] Result panel 115 (unknown) (no date) (unknown) [facility] (no value) [facility] Result panel 116 (unknown) (no date) (unknown) [facility] (no value) [facility] Result panel 117 (unknown) (no date) (unknown) [facility] (no value) [facility] Result panel 118 (unknown) (no date) (unknown) [facility] (no value) [facility] Result panel 119 (unknown) (no date) (unknown) [facility] (no value) [facility] Result panel 120 (unknown) (no date) (unknown) [facility] (no value) [facility] Result panel 121 (unknown) (no date) (unknown) [facility] (no value) [facility] Result panel 122 (unknown) (no date) (unknown) [facility] (no value) [facility] Result panel 123 (unknown) (no date) (unknown) [facility] (no value) [facility] Result panel 124 (unknown) (no date) (unknown) [facility] (no value) [facility] Result panel 125 (unknown) (no date) (unknown) [facility] (no value) [facility] Result panel 126 (unknown) (no date) (unknown) [facility] (no value) [facility] Result panel 127 (unknown) (no date) (unknown) [facility] (no value) [facility] Result panel 128 (unknown) (no date) (unknown) [facility] (no value) [facility] Result panel 129 (unknown) (no date) (unknown) [facility] (no value) [facility] Result panel 130 (unknown) (no date) (unknown) [facility] (no value) [facility] Result panel 131 (unknown) (no date) (unknown) [facility] (no value) [facility] Result panel 132 (unknown) (no date) (unknown) [facility] (no value) [facility] Result panel 133 (unknown) (no date) (unknown) [facility] (no value) [facility] Result panel 134 (unknown) (no date) (unknown) [facility] (no value) [facility] Result panel 135 (unknown) (no date) (unknown) [facility] (no value) [facility] Result panel 136 (unknown) (no date) (unknown) [facility] (no value) [facility] Result panel 137 (unknown) (no date) (unknown) [facility] (no value) [facility] Result panel 138 (unknown) (no date) (unknown) [facility] (no value) [facility] Result panel 139 (unknown) (no date) (unknown) [facility] (no value) [facility] Result panel 140 (unknown) (no date) (unknown) [facility] (no value) [facility] Result panel 141 (unknown) (no date) (unknown) [facility] (no value) [facility] Result panel 142 (unknown) (no date) (unknown) [facility] (no value) [facility] Result panel 143 (unknown) (no date) (unknown) [facility] (no value) [facility] Result panel 144 (unknown) (no date) (unknown) [facility] (no value) [facility] Result panel 145 (unknown) (no date) (unknown) [facility] (no value) [facility] Result panel 146 (unknown) (no date) (unknown) [facility] (no value) [facility] Result panel 147 (unknown) (no date) (unknown) [facility] (no value) [facility] Result panel 148 (unknown) (no date) (unknown) [facility] (no value) [facility] Result panel 149 (unknown) (no date) (unknown) [facility] (no value) [facility] Result panel 150 (unknown) (no date) (unknown) [facility] (no value) [facility] Result panel 151 (unknown) (no date) (unknown) [facility] (no value) [facility] Result panel 152 (unknown) (no date) (unknown) [facility] (no value) [facility] Result panel 153 (unknown) (no date) (unknown) [facility] (no value) [facility] Result panel 154 (unknown) (no date) (unknown) [facility] (no value) [facility] Result panel 155 (unknown) (no date) (unknown) [facility] (no value) [facility] Result panel 156 (unknown) (no date) (unknown) [facility] (no value) [facility] Result panel 157 (unknown) (no date) (unknown) [facility] (no value) [facility] Result panel 158 (unknown) (no date) (unknown) [facility] (no value) [facility] Result panel 159 (unknown) (no date) (unknown) [facility] (no value) [facility] Result panel 160 (unknown) (no date) (unknown) [facility] (no value) [facility] Result panel 161 (unknown) (no date) (unknown) [facility] (no value) [facility] Result panel 162 (unknown) (no date) (unknown) [facility] (no value) [facility] Result panel 163 (unknown) (no date) (unknown) [facility] (no value) [facility] Result panel 164 (unknown) (no date) (unknown) [facility] (no value) [facility] Result panel 165 (unknown) (no date) (unknown) [facility] (no value) [facility] Result panel 166 (unknown) (no date) (unknown) [facility] (no value) [facility] Result panel 167 (unknown) (no date) (unknown) [facility] (no value) [facility] Result panel 168 (unknown) (no date) (unknown) [facility] (no value) [facility] Result panel 169 (unknown) (no date) (unknown) [facility] (no value) [facility] Result panel 170 (unknown) (no date) (unknown) [facility] (no value) [facility] Result panel 171 (unknown) (no date) (unknown) [facility] (no value) [facility] Result panel 172 (unknown) (no date) (unknown) [facility] (no value) [facility] Result panel 173 (unknown) (no date) (unknown) [facility] (no value) [facility] Result panel 174 (unknown) (no date) (unknown) [facility] (no value) [facility] Result panel 175 (unknown) (no date) (unknown) [facility] (no value) [facility] Result panel 176 (unknown) (no date) (unknown) [facility] (no value) [facility] Result panel 177 (unknown) (no date) (unknown) [facility] (no value) [facility] Result panel 178 (unknown) (no date) (unknown) [facility] (no value) [facility] Result panel 179 (unknown) (no date) (unknown) [facility] (no value) [facility] Result panel 180 (unknown) (no date) (unknown) [facility] (no value) [facility] Result panel 181 (unknown) (no date) (unknown) [facility] (no value) [facility] Result panel 182 (unknown) (no date) (unknown) [facility] (no value) [facility] Result panel 183 (unknown) (no date) (unknown) [facility] (no value) [facility] Result panel 184 (unknown) (no date) (unknown) [facility] (no value) [facility] Result panel 185 (unknown) (no date) (unknown) [facility] (no value) [facility] Result panel 186 (unknown) (no date) (unknown) [facility] (no value) [facility] Result panel 187 (unknown) (no date) (unknown) [facility] (no value) [facility] Result panel 188 (unknown) (no date) (unknown) [facility] (no value) [facility] Result panel 189 (unknown) (no date) (unknown) [facility] (no value) [facility] Result panel 190 (unknown) (no date) (unknown) [facility] (no value) [facility] Result panel 191 (unknown) (no date) (unknown) [facility] (no value) [facility] Result panel 192 (unknown) (no date) (unknown) [facility] (no value) [facility] Result panel 193 (unknown) (no date) (unknown) [facility] (no value) [facility] Result panel 194 (unknown) (no date) (unknown) [facility] (no value) [facility] Result panel 195 (unknown) (no date) (unknown) [facility] (no value) [facility] Result panel 196 (unknown) (no date) (unknown) [facility] (no value) [facility] Result panel 197 (unknown) (no date) (unknown) [facility] (no value) [facility] Result panel 198 (unknown) (no date) (unknown) [facility] (no value) [facility] Result panel 199 (unknown) (no date) (unknown) [facility] (no value) [facility] Result panel 200 (unknown) (no date) (unknown) [facility] (no value) [facility] Result panel 201 (unknown) (no date) (unknown) [facility] (no value) [facility] Result panel 202 (unknown) (no date) (unknown) [facility] (no value) [facility] Result panel 203 (unknown) (no date) (unknown) [facility] (no value) [facility] Result panel 204 (unknown) (no date) (unknown) [facility] (no value) [facility] Result panel 205 (unknown) (no date) (unknown) [facility] (no value) [facility] Result panel 206 (unknown) (no date) (unknown) [facility] (no value) [facility] Result panel 207 (unknown) (no date) (unknown) [facility] (no value) [facility] Result panel 208 (unknown) (no date) (unknown) [facility] (no value) [facility] Result panel 209 (unknown) (no date) (unknown) [facility] (no value) [facility] Result panel 210 (unknown) (no date) (unknown) [facility] (no value) [facility] Result panel 211 (unknown) (no date) (unknown) [facility] (no value) [facility] Result panel 212 (unknown) (no date) (unknown) [facility] (no value) [facility] Result panel 213 (unknown) (no date) (unknown) [facility] (no value) [facility] Result panel 214 (unknown) (no date) (unknown) [facility] (no value) [facility] Result panel 215 (unknown) (no date) (unknown) [facility] (no value) [facility] Result panel 216 (unknown) (no date) (unknown) [facility] (no value) [facility] Result panel 217 (unknown) (no date) (unknown) [facility] (no value) [facility] Result panel 218 (unknown) (no date) (unknown) [facility] (no value) [facility] Result panel 219 (unknown) (no date) (unknown) [facility] (no value) [facility] Result panel 220 (unknown) (no date) (unknown) [facility] (no value) [facility] Result panel 221 (unknown) (no date) (unknown) [facility] (no value) [facility] Result panel 222 (unknown) (no date) (unknown) [facility] (no value) [facility] Result panel 223 (unknown) (no date) (unknown) [facility] (no value) [facility] Result panel 224 (unknown) (no date) (unknown) [facility] (no value) [facility] Result panel 225 (unknown) (no date) (unknown) [facility] (no value) [facility] Result panel 226 (unknown) (no date) (unknown) [facility] (no value) [facility] Result panel 227 (unknown) (no date) (unknown) [facility] (no value) [facility] Result panel 228 (unknown) (no date) (unknown) [facility] (no value) [facility] Result panel 229 (unknown) (no date) (unknown) [facility] (no value) [facility] Result panel 230 (unknown) (no date) (unknown) [facility] (no value) [facility] Result panel 231 (unknown) (no date) (unknown) [facility] (no value) [facility] Result panel 232 (unknown) (no date) (unknown) [facility] (no value) [facility] Result panel 233 (unknown) (no date) (unknown) [facility] (no value) [facility] Result panel 234 (unknown) (no date) (unknown) [facility] (no value) [facility] Result panel 235 (unknown) (no date) (unknown) [facility] (no value) [facility] Result panel 236 (unknown) (no date) (unknown) [facility] (no value) [facility] Result panel 237 (unknown) (no date) (unknown) [facility] (no value) [facility] Result panel 238 (unknown) (no date) (unknown) [facility] (no value) [facility] Result panel 239 (unknown) (no date) (unknown) [facility] (no value) [facility] Result panel 240 (unknown) (no date) (unknown) [facility] (no value) [facility] Result panel 241 (unknown) (no date) (unknown) [facility] (no value) [facility] Result panel 242 (unknown) (no date) (unknown) [facility] (no value) [facility] Result panel 243 (unknown) (no date) (unknown) [facility] (no value) [facility] Result panel 244 (unknown) (no date) (unknown) [facility] (no value) [facility] Result panel 245 (unknown) (no date) (unknown) [facility] (no value) [facility] Result panel 246 (unknown) (no date) (unknown) [facility] (no value) [facility] Result panel 247 (unknown) (no date) (unknown) [facility] (no value) [facility] Result panel 248 (unknown) (no date) (unknown) [facility] (no value) [facility] Result panel 249 (unknown) (no date) (unknown) [facility] (no value) [facility] Result panel 250 (unknown) (no date) (unknown) [facility] (no value) [facility] Result panel 251 (unknown) (no date) (unknown) [facility] (no value) [facility] Result panel 252 (unknown) (no date) (unknown) [facility] (no value) [facility] Result panel 253 (unknown) (no date) (unknown) [facility] (no value) [facility] Result panel 254 (unknown) (no date) (unknown) [facility] (no value) [facility] Result panel 255 (unknown) (no date) (unknown) [facility] (no value) [facility] Result panel 256 (unknown) (no date) (unknown) [facility] (no value) [facility] Result panel 257 (unknown) (no date) (unknown) [facility] (no value) [facility] Result panel 258 (unknown) (no date) (unknown) [facility] (no value) [facility] Result panel 259 (unknown) (no date) (unknown) [facility] (no value) [facility] Result panel 260 (unknown) (no date) (unknown) [facility] (no value) [facility] Result panel 261 (unknown) (no date) (unknown) [facility] (no value) [facility] Result panel 262 (unknown) (no date) (unknown) [facility] (no value) [facility] Result panel 263 (unknown) (no date) (unknown) [facility] (no value) [facility] Result panel 264 (unknown) (no date) (unknown) [facility] (no value) [facility] Result panel 265 (unknown) (no date) (unknown) [facility] (no value) [facility] Result panel 266 (unknown) (no date) (unknown) [facility] (no value) [facility] Result panel 267 (unknown) (no date) (unknown) [facility] (no value) [facility] Result panel 268 (unknown) (no date) (unknown) [facility] (no value) [facility] Result panel 269 (unknown) (no date) (unknown) [facility] (no value) [facility] Result panel 270 (unknown) (no date) (unknown) [facility] (no value) [facility] Result panel 271 (unknown) (no date) (unknown) [facility] (no value) [facility] Result panel 272 (unknown) (no date) (unknown) [facility] (no value) [facility] Result panel 273 (unknown) (no date) (unknown) [facility] (no value) [facility] Result panel 274 (unknown) (no date) (unknown) [facility] (no value) [facility] Result panel 275 (unknown) (no date) (unknown) [facility] (no value) [facility] Result panel 276 (unknown) (no date) (unknown) [facility] (no value) [facility] Result panel 277 (unknown) (no date) (unknown) Walk-In (no value) (units [facility] nown) [facility]) [facility] Result panel 278 (unknown) (no date) (unknown) Walk-In (no value) (units ([facility] nown) [facility] Result panel 279 (unknown) (no date) (unknown) Walk-In (no value) (units ([facility] nown) [facility] Primary [facility] Result panel 280 (unknown) (no date) (unknown) Walk-In (no value) (units ([facility] nown) [facility] Primary [facility] Result panel 281 (unknown) (no date) (unknown) Walk-In (no value) (units ([facility] nown) [facility] Result panel 282 (unknown) (no date) (unknown) Walk-In (no value) (units ([facility] nown) [facility] Result panel 283 (unknown) (no date) (unknown) Walk-In (no value) (units ([facility] nown) [facility] Result panel 284 (unknown) (no date) (unknown) Walk-In (no value) (units ([facility] nown) [facility] Primary [facility] Result panel 285 (unknown) (no date) (unknown) Walk-In (no value) (units ([facility] nown) [facility] Result panel 286 (unknown) (no date) (unknown) Walk-In (no value) (units ([facility] nown) [facility] Primary [facility] Result panel 287 (unknown) (no date) (unknown) Walk-In (no value) (units ([facility] nown) [facility] Primary unknown) [facility] Result panel 288 (unknown) (no date) (unknown) Walk-In (no value) (units ([facility] nown) [facility]) [facility] Result panel 289 (unknown) (no date) (unknown) Walk-In (no value) (units ([facility] nown) [facility] Primary [facility]) [facility] Result panel 290 (unknown) (no date) (unknown) Walk-In (no value) (units ([facility] nown) [facility] Primary [facility]) [facility] Result panel 291 (unknown) (no date) (unknown) Walk-In (no value) (units ([facility] nown) [facility] Primary [facility]) [facility] Result panel 292 (unknown) (no date) (unknown) Walk-In (no value) (units ([facility] nown) [facility] Primary unknown) [facility] Result panel 293 (unknown) (no date) (unknown) Walk-In (no value) (units ([facility] nown) [facility] Primary unknown) [facility] Result panel 294 (unknown) (no date) (unknown) Walk-In (no value) (units ([facility] nown) [facility] Primary unknown) [facility] Result panel 295 (unknown) (no date) (unknown) Walk-In (no value) (units ([facility] nown) [facility] Primary unknown) [facility] Result panel 296 (unknown) (no date) (unknown) Walk-In (no value) (units ([facility] nown) [facility] Primary unknown) [facility] Result panel 297 (unknown) (no date) (unknown) Walk-In (no value) (units ([facility] nown) [facility] Primary unknown) [facility] Result panel 298 (unknown) (no date) (unknown) Walk-In (no value) (units ([facility] nown) [facility] Primary [facility]) [facility] Result panel 299 (unknown) (no date) (unknown) Walk-In (no value) (units ([facility] nown) [facility]) [facility] Result panel 300 (unknown) (no date) (unknown) Walk-In (no value) (units ([facility] nown) [facility] Primary [facility]) [facility] Result panel 301 (unknown) (no date) (unknown) Walk-In (no value) (units ([facility] nown) [facility] Result panel 302 (unknown) (no date) (unknown) Walk-In (no value) (units ([facility] nown) [facility] Result panel 303 (unknown) (no date) (unknown) Walk-In (no value) (units ([facility] nown) [facility] Result panel 304 (unknown) (no date) (unknown) Walk-In (no value) (units ([facility] nown) [facility] Result panel 305 (unknown) (no date) (unknown) Walk-In (no value) (units ([facility] nown) [facility] Result panel 306 (unknown) (no date) (unknown) Walk-In (no value) (units ([facility] nown) [facility] Result panel 307 (unknown) (no date) (unknown) Walk-In (no value) (units ([facility] nown) [facility] Result panel 308 (unknown) (no date) (unknown) Walk-In (no value) (units ([facility] nown) [facility] Result panel 309 (unknown) (no date) (unknown) Walk-In (no value) (units ([facility] nown) [facility] Result panel 310 (unknown) (no date) (unknown) Walk-In (no value) (units ([facility] nown) [facility] Result panel 311 (unknown) (no date) (unknown) Walk-In (no value) (units ([facility] nown) [facility] Primary [facility]) [facility] Result panel 312 (unknown) (no date) (unknown) Walk-In (no value) (units ([facility] nown) [facility] Result panel 313 (unknown) (no date) (unknown) Walk-In (no value) (units ([facility] nown) [facility] unknown[facility] Result panel 314 (unknown) (no date) (unknown) Walk-In (no value) (units ([facility] nown) [facility] Result panel 315 (unknown) (no date) (unknown) Walk-In (no value) (units ([facility] nown) [facility] Result panel 316 (unknown) (no date) (unknown) Walk-In (no value) (units ([facility] nown) [facility] Result panel 317 (unknown) (no date) (unknown) Walk-In (no value) (units ([facility] nown) [facility] Result panel 318 (unknown) (no date) (unknown) Walk-In (no value) (units ([facility] nown) [facility] Result panel 319 (unknown) (no date) (unknown) Walk-In (no value) (units ([facility] nown) [facility] Result panel 320 (unknown) (no date) (unknown) Walk-In (no value) (units ([facility] nown) [facility] Primary [facility]) [facility] Result panel 321 (unknown) (no date) (unknown) Walk-In (no value) (units ([facility]own) [facility] Result panel 322 (unknown) (no date) (unknown) Walk-In (no value) (units ([facility]own) [facility] Result panel 323 (unknown) (no date) (unknown) Walk-In (no value) (units ([facility] nown) [facility] Primary [facility] Result panel 324 (unknown) (no date) (unknown) Walk-In (no value) (units ([facility] nown) [facility] unknown[facility] Result panel 325 (unknown) (no date) (unknown) Walk-In (no value) (units ([facility] nown) [facility] Primary unknown[facility] Result panel 326 (unknown) (no date) (unknown) Walk-In (no value) (units ([facility] nown) [facility] Primary unknown[facility] Result panel 327 (unknown) (no date) (unknown) Walk-In (no value) (units ([facility] nown) [facility] Primary unknown[facility] Result panel 328 (unknown) (no date) (unknown) Walk-In (no value) (units ([facility] nown) [facility] Primary unknown[facility] Result panel 329 (unknown) (no date) (unknown) Walk-In (no value) (units ([facility] nown) [facility] Primary unknown) [facility] Result panel 330 (unknown) (no date) (unknown) Walk-In (no value) (units ([facility] nown) [facility] Primary [facility] Result panel 331 (unknown) (no date) (unknown) Walk-In (no value) (units ([facility] nown) [facility] Result panel 332 (unknown) (no date) (unknown) Walk-In (no value) (units ([facility] nown) [facility] Result panel 333 (unknown) (no date) (unknown) Walk-In (no value) (units ([facility] nown) [facility] Result panel 334 (unknown) (no date) (unknown) Walk-In (no value) (units ([facility] nown) [facility] Result panel 335 (unknown) (no date) (unknown) Walk-In (no value) (units ([facility] nown) [facility] Result panel 336 (unknown) (no date) (unknown) Walk-In (no value) (units ([facility] nown) [facility] Primary unknown[facility] Result panel 337 (unknown) (no date) (unknown) Walk-In (no value) (units (unk nown) [facility] unknown[facility] Result panel 338 (unknown) (no date) (unknown) Walk-In (no value) (units ([facility] nown) [facility] unknown[facility] Result panel 339 (unknown) (no date) (unknown) Walk-In (no value) (units ([facility] nown) [facility] unknown) [facility] Social History No information. Vital Signs date measurement value units 2022-04-08 00:00 BMI 22.01 kg/m2 2022-04-08 00:00 BP_diastolic 92 mmHg 2022-04-08 00:00 BP_systolic 175 mmHg 2022-04-08 00:00 heart_rate 100 /min 2022-04-08 00:00 height_metric 170.18 cm 2022-04-08 00:00 height_standard 67 in 2022-04-08 00:00 respiration_rate 12 /min 2022-04-08 00:00 temperature_metric 36.11 C 2022-04-08 00:00 temperature_standard 97 F 2022-04-08 00:00 weight_metric 63.5 kg 2022-04-08 00:00 weight_standard 140 lb
[2022-04-21 18:20] LABS: MUDS CUTOFF CONCENTRATIONS CUTOFF CONC BELOW:
[2022-04-21 18:26] LABS: BILIRUBIN,URINE NEGATIVE (NEGATIVE); GLUCOSE, URINE (UA) NEGATIVE (NEGATIVE); KETONES,URINE (UA) NEGATIVE (NEGATIVE); LEUKOCYTE ESTERASE, URINE SMALL (NEGATIVE); NITRITE,URINE NEGATIVE (NEGATIVE); OCCULT BLOOD,URINE NEGATIVE (NEGATIVE); PH,URINE 5.5 PH (5.0-7.5); PROTEIN,URINE NEGATIVE (NEGATIVE); UROBILINOGEN,URINE 0.2 (NORMAL) E.U./dL (NORMAL)
[2022-04-21 18:27] LABS: CLARITY,URINE HAZY (CLEAR)
[2022-04-21 18:37] LABS: BACTERIA,URINE Few /HPF (None Seen); EPITHELIAL CELLS,UR FEW Transitional /HPF (<= Few); RBC,URINE None Seen /HPF (0-5); SQUAMOUS EPITHELIAL CELL,UR MOD Squamous (<= Few)
[2022-04-21 18:38] LABS: AMPHETAMINE SCREEN,URINE NEGATIVE (NEGATIVE); BARBITURATE SCREEN,UR NEGATIVE (NEGATIVE); BENZODIAZEPINES SCREEN, URINE NEGATIVE (NEGATIVE); COCAINE SCREEN URINE NEGATIVE (NEGATIVE); METHADONE SCREEN, URINE NEGATIVE (NEGATIVE); METHAMPHETAMINES SCREEN, URINE NEGATIVE (NEGATIVE); OPIATE SCREEN, URINE NEGATIVE (NEGATIVE); OXYCODONE SCREEN, URINE NEGATIVE (NEGATIVE); PROPOXYPHENE SCREEN, URINE NEGATIVE (NEGATIVE); THC CANNABINOID SCREEN, URINE NEGATIVE (NEGATIVE); TRICYCLIC ANTIDEPRESSANT,URINE NEGATIVE (NEGATIVE)
--- NOTE | 2022-04-22 05:50 | ED Physician Documentation ---
ED Addendum - Addendum Addendum: 04/22/22 05:48 Patient has been up since approximately 3 AM and has been calm and cooperative. She has been ambulatory to the bathroom independently with a steady gait. Her speech has been clear. Upon reevaluation this morning, patient states that she does not recall any events of yesterday or what led to her coming to the emergency department. She does not recall coming in an ambulance or that she required sedation For her behavior. Patient states that she was trying to cope with some stress with drinking and she knows that that is not the best way to cope with stress. She does not want to go to rehab or detox facility. She says she wants to go home. She denies ever trying to hurt herself in the past. She denies feeling suicidal or homicidal.She has a primary care doctor. She would like information for a therapist. 04/22/22 06:00 I spoke to the patient's , Riky. He is comfortable with her returning home this morning as long as she is no longer intoxicated and is calm. He does not have concerns that she would hurt herself or others. He states that she does have an out reach person to contact in regards to her substance abuse. He is also aware he can call 911 if he has any safety concerns regarding his . Departure - Departure Disposition: 01 Home, Self Care Clinical Impression: Alcohol intoxication Condition: Stable Instructions: ED Alcohol Intoxication Comments: Your alcohol level was elevated yesterday. You were also distressed emotionally.You were brought in by an ambulance and with the police. You required medicine to help sedate you to be cooperative as you were trying to hurt others trying to help you. Please consider reaching out to your primary care doctor on Sunday - There are resources available in the community to help with the stress that you have been feeling as well as your substance use. If at anytime you are feeling unsafe or want More help you can always return to the emergency department. [facility] [address] [facility] offers a monitored and safe setting for individuals withdrawing from alcohol and drugs, and counseling for individuals experiencing a mental health crisis. All services are provided in a 10-bed facility where intensive medical monitoring is required along with stabilization services. The goal of these services is to assess a clients mental health and substance use disorder related needs, and assist them in accessing the services they need to recover. Follow-up with [facility] at [phone] to schedule psychiatric care and counseling. Discharge Date/Time: 04/22/22 06:28
[2022-04-22 05:54] VITALS: BP 145/85
== END 2022-04-22 06:28 | disposition home or self-care (01) ==
LOC: ED 17:13
DX: F10.129 Alcohol abuse with intoxication, unspecified (principal); R45.89 Other symptoms and signs involving emotional state; Y90.8 Blood alcohol level of 240 mg/100 ml or more; Z20.822 Contact with and (suspected) exposure to COVID-19
CPT/HCPCS: 36415; 51701; 80053; 80306; 80307; 81001; 83690; 84443; 85025; 87635; 93005; 96374; 99284; 99285; G0480; J2060; 80320; 80329; 81003; 87086

== ENCOUNTER 2022-05-23 14:09 | Outpatient (CLI) | payer MEDICARE, MEDICAID ==
--- NOTE | 2022-05-23 12:11 | XRAY Report ---
PROCEDURE: Hand 3 View RT INDICATIONS: RIGHT HAND PAIN TECHNIQUE: 3 views of the hand(s) acquired. COMPARISON: None. FINDINGS: Bones: No fractures or dislocations. No suspicious bony lesions. CMC joint space or with associat ed osteophytosis. Interphalangeal joint space narrowing with associated osteophytosis, most prominent in the third PIP. Soft tissues: No suspicious soft tissue calcifications or masses. IMPRESSION: Moderate CMC and interphalangeal osteoarthritis. No acute bony abnormality. Reviewed by: Supa Leong on 05/23/2022 12:09 PM PDT Approved by: Supa Loeng on 05/23/2022 12:09 PM PDT Station ID: [id number]
== END 2022-05-23 14:11 | disposition home or self-care (01) ==
LOC: DI.WOS 14:09
PROVIDERS: ATTEND Orthopaedic Surgery
DX: M19.041 Primary osteoarthritis, right hand (principal)

== ENCOUNTER 2022-07-27 12:50 | Outpatient (CLI) | payer MEDICARE, MEDICAID ==
--- NOTE | 2022-07-27 20:17 | DEXA Report ---
PROCEDURE: Dexa Spine and/or Hip INDICATIONS: RIB FRACTURE TECHNIQUE: Dual energy x-ray absorptiometry (DXA) was performed on a [employer] System. Regions measur ed are the AP Spine, femoral neck, and if needed forearm. COMPARISON: 05/15/2018 FINDINGS: Lumbar Spine: Bone Mineral Density 1.166 g/cm/cm,T score -0.1. There is interval 4.8% increase in total lumbar spi ne bone mineral density. Left Femoral Neck: Bone Mineral Density 0.771 g/cm/cm, T score -1.9. Left Hip: Bone Mineral Density 0.902 g/cm/cm,T score -0.8. There is interval 0.6% decrease in left total hip ty ne mineral density. (T score greater or equal to -1.0: NORMAL) (T score from -1.1 to -2.4: OSTEOPENIA) (T score less than or equal to -2.5 to: OSTEOPOROSIS) Impression: By WHO criteria, this patient has low bone density (osteopenia). Patients with diagnosis of osteoporosis or osteopenia should have regular bone mineral density assess ment. For those eligible for Medicare, routine testing is allowed once every 2 years. Testing frequ ency can be increased for patients who have rapidly progressing disease or for those who are receivin g medical therapy to restore bone mass. Reviewed by: Jaime Dawn MD on 07/27/2022 8:15 PM PDT Approved by: Jaime Dawn MD on 07/27/2022 8:15 PM PDT Station ID: [id number]
== END 2022-07-27 12:51 | disposition home or self-care (01) ==
LOC: DI 12:50
PROVIDERS: ATTEND Internal Medicine
DX: S22.32XA Fracture of one rib, left side, initial encounter for closed fracture (principal); M85.80 Other specified disorders of bone density and structure, unspecified site

== ENCOUNTER 2022-12-29 11:12 | Outpatient (CLI) | payer MEDICAID, MEDICARE ==
[2022-12-29 11:36] LABS: BASOPHILS % (AUTO) 0.7 %; EOSINOPHILS # (AUTO) 0.1 10^3/uL (0.0-0.7); EOSINOPHILS % (AUTO) 0.9 %; HCT - HEMATOCRIT 45.4 % (37.0-47.0); HGB - HEMOGLOBIN 15.2 g/dL (12.0-16.0); LYMPHOCYTES # (AUTO) 1.5 10^3/uL (1.5-3.5); LYMPHOCYTES % (AUTO) 27.1 %; MEAN CORPUSCULAR HGB CONC 33.5 g/dL (32.0-36.0); MEAN CORPUSCULAR VOLUME 98.5 fL (81.0-99.0); MEAN PLATELET VOLUME 9.5 fL (7.9-10.8); MONOCYTES # (AUTO) 0.6 10^3/uL (0.0-1.0); MONOCYTES % (AUTO) 11.3 %; NEUTROPHILS # (AUTO) 3.4 10^3/uL (1.5-6.6); NEUTROPHILS % (AUTO) 59.8 %; PLT - PLATELET COUNT 268 10^3/uL (130-450); RED BLOOD COUNT 4.61 10^6/uL (4.20-5.40); RED CELL DISTRIBUTION WIDTH 14.4 % (12.0-15.0); WHITE BLOOD COUNT 5.7 x10^3/uL (4.8-10.8)
[2022-12-29 11:57] LABS: ALBUMIN 4.4 g/dL (3.2-5.5); ALBUMIN/GLOBULIN RATIO 1.6 (1.0-2.2); ALKALINE PHOSPHATASE 121 IU/L (42-121); ALT ALANINE AMINOTRANSFERASE 22 IU/L (10-60); AST ASPARTATE AMINOTRANSFERASE 26 IU/L (10-42); BILIRUBIN,TOTAL 0.5 mg/dL (0.2-1.0); BUN - BLOOD UREA NITROGEN 9 mg/dL (6-20); CALCIUM 9.8 mg/dL (8.5-10.3); CARBON DIOXIDE - CO2 25 mmol/L (21-32); CHLORIDE 104 mmol/L (101-111); CHOL/HDL RATIO 3.7 (<4.4); CHOLESTEROL 276 mg/dL; CREATININE 0.5 mg/dL (0.6-1.3); CRP - C-REACTIVE PROTEIN 1.6 mg/dL (<0.5); GFR - MDRD 123 (>89); GLUCOSE 90 mg/dL (74-104); HDL CHOLESTEROL 75 mg/dL; LDL CHOLESTEROL,CALCULATED 177 mg/dL; LDL/HDL RATIO 2.4 (<4.4); SODIUM 137 mmol/L (135-145); TOTAL PROTEIN 7.1 g/dL (6.4-8.9); TRIGLYCERIDES 121 mg/dL (48-352); URIC ACID 3.7 mg/dL (2.3-6.6); VLDL CHOLESTEROL 24 mg/dL
[2022-12-29 12:11] LABS: THYROID STIMULATING HORMONE 1.19 uIU/mL (0.34-5.60)
[2022-12-29 13:34] LABS: RHEUMATOID FACTOR NEGATIVE (Negative)
== END 2022-12-29 11:13 | disposition home or self-care (01) ==
LOC: LAB 11:12
PROVIDERS: ATTEND Internal Medicine
DX: I48.91 Unspecified atrial fibrillation (principal); Z79.899 Other long term (current) drug therapy; M19.90 Unspecified osteoarthritis, unspecified site; R03.0 Elevated blood-pressure reading, without diagnosis of hypertension; R41.3 Other amnesia
CPT/HCPCS: 36415; 80053; 80061; 82607; 83721; 84443; 84550; 85025; 85651; 86140; 86200; 86430

== ENCOUNTER 2023-01-15 11:05 | Outpatient (CLI) | payer MEDICARE ==
[2023-01-15] MEDS ORDERED: iohexoL-300 100 ML VIAL IVP ONE (14:05)
[2023-01-15] MEDS ORDERED: DIATRIZOATE MEGLU/DIATRIZO SOD 30 ML BOTTLE PO ONE (14:06)
--- NOTE | 2023-01-15 15:30 | CT Report ---
PROCEDURE: ABDOMEN/PELVIS W INDICATIONS: LEFT LOWER QUAD PAIN CONTRAST: 100mL Omni 300 TECHNIQUE: After the administration of intravenous and oral contrast, 5 mm thick sections acquired from the diap hragms to the symphysis. 5 mm thick coronal and sagittal reformats were acquired. For radiation dos e reduction, the following was used: automated exposure control, adjustment of mA and/or kV accordin g to patient size. COMPARISON: CT abdomen pelvis 02/07/2017 FINDINGS: Image quality: Metal artifact from right hip arthroplasty obscures the surrounding soft tissues in th e lower pelvis.. Lung bases and heart: Unremarkable. Liver: No solid mass. Gallbladder and biliary tree: No radiopaque stones or wall thickening. No biliary dilation. Spleen: No splenomegaly. Pancreas: No pancreatic ductal dilation. Adrenals: No adrenal nodule. Kidneys and ureters: No hydronephrosis. No renal cystic lesion which requires follow up. No solid mas s. Bowel and peritoneum: No bowel distension. No pathologic free fluid. Rectosigmoid diverticulosis. No CT evidence of acute diverticulitis. Normal-appearing appendix in the right lower quadrant. Lymph nodes: No central or retroperitoneal adenopathy. Vessels: No infrarenal aortic aneurysm. PELVIS Reproductive organs: Unremarkable. Bladder: No abnormal wall thickening, accounting for underdistension. Pelvic lymph nodes: No pelvic adenopathy by size criteria. Bones: Status post right hip arthroplasty. Moderate degenerative changes of the left hip. Mild degene rative changes of the visualized spine. No acute or suspicious osseous abnormality. Other: No significant ventral or inguinal hernia. IMPRESSION: No acute findings in the abdomen or pelvis to extent patient's symptoms. Rectosigmoid diverticulosis without CT evidence of acute diverticulitis. Reviewed by: Adalgisa Jimenez MD on 01/15/2023 3:29 PM PST Approved by: Adalgisa Jimenez MD on 01/15/2023 3:29 PM PST Station ID: [id number]
== END 2023-01-15 11:06 | disposition home or self-care (01) ==
LOC: DI 11:05
PROVIDERS: ATTEND Internal Medicine
DX: R10.32 Left lower quadrant pain (principal); K57.30 Diverticulosis of large intestine without perforation or abscess without bleeding
CPT/HCPCS: 74177; Q9963; Q9967

== ENCOUNTER 2023-01-15 11:06 | Outpatient (CLI) | payer MEDICARE ==
--- NOTE | 2023-01-16 12:21 | Mammography Report ---
BILATERAL DIGITAL SCREENING MAMMOGRAM 3D/2D: 01/15/2023 CLINICAL: Routine screening. Comparison is made to exams dated: 10/05/2021 mammogram, 09/09/2021 mammogram, 01/29/2018 mammogram, a nd 06/11/2013 mammogram - [facility]. There are scattered areas of fibroglandular density in both breasts (category b / 25%-50% glandular t issue). No significant masses, calcifications, or other findings are seen in either breast. There has been no significant interval change. IMPRESSION: NEGATIVE There is no mammographic evidence of malignancy. A 1 year screening mammogram is recommended. Based on the Tyrer Cuzick model (a risk assessment model) the patients lifetime risk is 7.0% and her 10 year risk is 3.9%. According to the ACR, ACS, and NCCN guidelines, an annual breast MRI exam brigida g with mammogram is recommended if the patients lifetime risk is 20% or greater. This exam was interpreted at Station ID: [id number]. NOTE: For mammograms, a report in lay terms will be sent to the patient. Approximately 15% of breast malignancies will not be visualized mammographically. In the management of a palpable breast mass, a negative mammogram must not discourage biopsy of a clinically suspicious lesion. Electronically Signed By: Jabari el/alisa:01/15/2023 14:17:25 letter sent: No_Letter ACR BI-RADS Category 1: Negative 3341F PARENCHYMAL PATTERN: (A) - The breast(s) demonstrate(s) scattered fibroglandular densities. BI-RADS CATEGORY: (1) - 1 Mammogram [id number] 1 year screening LATERALITY: (B)
== END 2023-01-15 11:07 | disposition home or self-care (01) ==
LOC: DI 11:06
PROVIDERS: ATTEND Internal Medicine
DX: Z12.31 Encounter for screening mammogram for malignant neoplasm of breast (principal); R92.323 Mammographic fibroglandular density, bilateral breasts

== ENCOUNTER 2023-03-09 07:00 | Outpatient (CLI) | payer MEDICARE ==
--- NOTE | 2023-03-10 13:44 | XRAY Report ---
PROCEDURE: Chest 2V INDICATIONS: BRONCHIOLITIS DUE TO RSV TECHNIQUE: 2 views of the chest were acquired. COMPARISON: 04/08/2022 FINDINGS: Surgical changes and devices: None. Lungs and pleura: Slight chronic blunting of the left costophrenic sulcus. No pneumothorax. Slightly coarse interstitial markings. No consolidations. Increased retrosternal clear space. Mediastinum: Mediastinal contours appear normal. Heart size is normal. Bones and chest wall: No suspicious bony lesions. Overlying soft tissues appear unremarkable. IMPRESSION: Slight hyperinflation suggesting air trapping or asthma. No acute changes. Reviewed by: Ne Ricketts MD on 03/10/2023 1:43 PM PST Approved by: Ne Ricketts MD on 03/10/2023 1:43 PM PST Station ID: [id number]
== END 2023-03-09 23:59 | disposition home or self-care (01) ==
LOC: DI.S 07:00
PROVIDERS: ATTEND Emergency Medicine
DX: J21.0 Acute bronchiolitis due to respiratory syncytial virus (principal)

== ENCOUNTER 2023-05-07 06:28 | Day surgery (SDC) | payer MEDICARE ==
[2023-05-07] MEDS: LACTATED RINGERS 1,000 ML IV ONE ×2 (06:35→07:49)
--- NOTE | 2023-05-07 07:07 | ANESTHESIA ---
Pre-Anesthesia VS, & Labs - Diagnosis SCREENING - Procedure COLONOSCOPY Height: 5 ft 7 in Weight (kg): 62.9 kg Body Mass Index: 21.7 BMI Classification: Normal - Is Patient ?: No Home Medications and Allergies Estrogens, Conjugated Cream [Premarin Cream] 1 applic VG .THREETIMESWEEKLY 10/14/15 Timolol 0.25% Ophth Drops [Timoptic 0.25% Ophth Drops] 1 drops EACHEYE BID 02/07/17 Apixaban [Eliquis] 1 tab PO DAILY 05/24/20 Diltiazem HCl [Cardizem LA] 1 tab PO DAILY 05/24/20 Celecoxib [CeleBREX] See Rx Instructions .ROUTE .COMPLEX 12/22/21 Cholecalciferol (Vitamin D3) [Vitamin D3] See Rx Instructions .ROUTE .COMPLEX 12/22/21 Flecainide [Tambocar] See Rx Instructions .ROUTE .COMPLEX 12/22/21 Fluticasone [Flonase] See Rx Instructions .ROUTE .COMPLEX 12/22/21 Multivit-Min/Iron/Folic/Lutein [Multivitamin Women 50 Plus Tab] See Rx Instructions .ROUTE .COMPLEX 12/22/21 Travoprost [Travatan Z] See Rx Instructions .ROUTE .COMPLEX 12/22/21 Allergies/Adverse Reactions: Allergies Allergy/AdvReac Type Severity Reaction Status Date / Time adhesive tape Allergy skin Verified 04/21/22 17:17 irritation codeine AdvReac dizzy Verified 04/21/22 17:17 morphine AdvReac Hallucinati Verified 04/21/22 17:17 ons Anes History & Medical History - Anesthetic History Anesthesia Complications: reports: No previous complications Family history of Anesthesia Complications: Denies - Medical History Cardiovascular: reports: Hypertension, High cholesterol, Atrial fibrillation (IN NSR, DENIES CP; SOMETIMES WINDED ON STAIRS) Pulmonary: reports: Asthma, COPD Gastrointestinal: reports: Chronic diarrhea, Other Urinary: reports: None Musculoskeletal: reports: Osteoarthritis, Gout, Chronic back pain Endocrine/Autoimmune: reports: None Skin: reports: None Smoking Status: Never smoker Psychosocial: reports: No issues indicated - Surgical History Eyes Ears Nose Throat (EENT): reports: Tonsil/Adenoidectomy Cardiothoracic: Gynecologic: reports: Other Orthopedic: reports: Hip replacement, Arthroscopic surgery, Other Results - EKG Results EKG Comparison: Reviewed EKG Exam General: Alert Dental: WNL Mouth Openin Fingerbreadth Neck Mobility: Normal Mallampati classification: II Thyromental Distance: 4-6 cm Respiratory: Lungs clear Plan Anesthesia Type: Total IV Consent for Procedure(s) Verified and Reviewed: Yes Code Status: Attempt Resuscitation ASA classification: 2-Mild systemic disease Is this case an emergency?: No
[2023-05-07] MEDS ORDERED: PROPOFOL 500 MG/50 ML 500 MG/50 ML VIAL ONE (07:32)
[2023-05-07] MEDS ORDERED: MIDAZOLAM 2 MG/2 ML VIAL ONE (07:38)
[2023-05-07] MEDS ORDERED: GLYCOPYRROLATE 1 MG/5 ML VIAL ONE (07:38)
[2023-05-07 08:28] VITALS: BP 138/82; O2SAT 97
--- NOTE | 2023-05-07 13:12 | ANESTHESIA POST OP EVALUATION ---
Anesthesia Post Eval - Post Anesthesia Eval Vitals: Last Vital Signs Temp 36.2 C L 05/07/23 08:15 Pulse 95 05/07/23 08:15 Resp 16 05/07/23 08:15 BP 138/82 H 05/07/23 08:15 Pulse Ox 97 05/07/23 08:15 O2 Flow Rate CV Function Including HR & BP: Stable Pain Control: Satisfactory Nausea & Vomiting: Negative Mental Status: Baseline Respiratory Status: Airway Patent Hydration Status: Satisfactory Anesthesia Complications: None
== END 2023-05-07 06:29 | disposition home or self-care (01) ==
LOC: SDS 06:28
PROVIDERS: ATTEND Surgery
PROC: 0DBN8ZX Excision of Sigmoid Colon, Via Natural or Artificial Opening Endoscopic, Diagnostic (ICD-10-PCS; 2023-05-07)
PROC: 0DBH8ZX Excision of Cecum, Via Natural or Artificial Opening Endoscopic, Diagnostic (ICD-10-PCS; principal; 2023-05-07 07:30)
DX: Z12.11 Encounter for screening for malignant neoplasm of colon (principal); K57.30 Diverticulosis of large intestine without perforation or abscess without bleeding; R19.7 Diarrhea, unspecified; J44.9 Chronic obstructive pulmonary disease, unspecified; Z80.0 Family history of malignant neoplasm of digestive organs
CPT/HCPCS: 45380; J7120

== ENCOUNTER 2023-06-06 12:00 | Outpatient (CLI) | payer MEDICARE ==
[2023-06-06 12:14] LABS: BASOPHILS % (AUTO) 0.6 %; EOSINOPHILS # (AUTO) 0.1 10^3/uL (0.0-0.7); EOSINOPHILS % (AUTO) 0.9 %; HCT - HEMATOCRIT 42.8 % (37.0-47.0); HGB - HEMOGLOBIN 14.4 g/dL (12.0-16.0); LYMPHOCYTES # (AUTO) 1.7 10^3/uL (1.5-3.5); MEAN CORPUSCULAR HEMOGLOBIN 33.7 pg (27.0-31.0); MEAN CORPUSCULAR HGB CONC 33.6 g/dL (32.0-36.0); MEAN CORPUSCULAR VOLUME 100.2 fL (81.0-99.0); MONOCYTES # (AUTO) 0.7 10^3/uL (0.0-1.0); MONOCYTES % (AUTO) 10.5 %; NEUTROPHILS # (AUTO) 3.9 10^3/uL (1.5-6.6); NEUTROPHILS % (AUTO) 61.5 %; PLT - PLATELET COUNT 308 10^3/uL (130-450); RED BLOOD COUNT 4.27 10^6/uL (4.20-5.40); RED CELL DISTRIBUTION WIDTH 12.7 % (12.0-15.0); WHITE BLOOD COUNT 6.4 x10^3/uL (4.8-10.8)
[2023-06-06 12:28] LABS: ALBUMIN 4.2 g/dL (3.2-5.5); ALBUMIN/GLOBULIN RATIO 1.7 (1.0-2.2); BILIRUBIN,TOTAL 0.4 mg/dL (0.2-1.0); CALCIUM 10.2 mg/dL (8.5-10.3); CREATININE 0.7 mg/dL (0.6-1.3); POTASSIUM 4.2 mmol/L (3.5-4.5); TOTAL PROTEIN 6.7 g/dL (6.4-8.9)
[2023-06-06 12:44] LABS: THYROID STIMULATING HORMONE 1.48 uIU/mL (0.34-5.60)
== END 2023-06-06 12:01 | disposition home or self-care (01) ==
LOC: LAB 12:00
PROVIDERS: ATTEND Internal Medicine
DX: K52.831 Collagenous colitis (principal); R53.83 Other fatigue; C44.90 Unspecified malignant neoplasm of skin, unspecified
CPT/HCPCS: 36415; 80053; 82607; 84443; 85025

== ENCOUNTER 2023-09-14 08:00 | Outpatient (CLI) | payer MEDICARE | END 2023-09-14 23:59 | disposition home or self-care (01) | LOC: LAB.S 08:00 | PROVIDERS: ATTEND Physician Assistant Medical | DX: R09.89 Other specified symptoms and signs involving the circulatory and respiratory systems (principal) ==